=== PATIENT | male | born 1955 | race Caucasian/White ===

== ENCOUNTER 2017-04-18 11:13 | Emergency (ER) | payer SELFPAY | END 2017-04-18 13:08 | disposition home or self-care (01) | LOC: ERS 11:13 | DX: K04.7 Periapical abscess without sinus (principal); J44.9 Chronic obstructive pulmonary disease, unspecified; I25.10 Atherosclerotic heart disease of native coronary artery without angina pectoris; E11.9 Type 2 diabetes mellitus without complications; I10 Essential (primary) hypertension; M19.90 Unspecified osteoarthritis, unspecified site; Z87.891 Personal history of nicotine dependence; Z79.899 Other long term (current) drug therapy; Z79.82 Long term (current) use of aspirin; Z79.84 Long term (current) use of oral hypoglycemic drugs | CPT/HCPCS: 99283 ==

== ENCOUNTER 2017-04-19 11:19 | Observation (INO) | payer SELFPAY ==
--- NOTE | 2017-04-19 12:07 | RAD ---
PORTABLE AP CHEST: Date: 04/19/17 HISTORY: Chest pain. COMPARISON: 01/02/17. FINDINGS: Cardiac silhouette and pulmonary vasculature are within normal limits. Lungs remain clear. There has been no interval change when compared to the prior exam. IMPRESSION: No acute cardiopulmonary process. POS: [facility]
[2017-04-19 12:24] LABS: #Basophils 0.1 thou/uL (0.0-0.2); #Eosinphils 0.1 thou/uL (0.0-0.7); #Lymphocytes 2.4 thou/uL (1.20-3.40); #Monocytes 0.8 thou/uL (0.11-0.59); #Neutrophils 5.8 thou/uL (1.40-6.50); %Basophils 0.9 % (0.0-1.0); %Eosinophils 0.7 % (0.0-10.0); %Lymphocytes 26.5 % (21.0-51.0); %Monocytes 8.2 % (0.0-10.0); Hematocrit 42.9 % (42.0-52.0); Mean Platelet Volume 8.7 fL (7.4-10.4); Red Blood Cell (RBC) Count 4.61 mill/uL (4.70-6.10); White Blood Cell (WBC) Count 9.1 thou/uL (4.8-10.8)
[2017-04-19 12:49] LABS: ALT (SGPT) 28 U/L (8-55); AST (SGOT) 16 U/L (5-34); Alkaline Phosphatase 60 U/L (40-150); Anion Gap 14 mmol/L (10-20); BUN (Urea Nitrogen) 26 mg/dL (8.4-25.7); Bilirubin, Total 0.7 mg/dL (0.2-1.2); CK (CPK) 73 U/L (30-200); Calc. Creatinine Clearance 0 mL/min (70-130); Carbon Dioxide 24 mmol/L (22-29); Chloride 103 mmol/L (98-107); Estimated GFR-MDRD 56; Lipase 59 U/L (8-78); Protein, Total 6.8 g/dL (6.0-8.3)
[2017-04-19 12:52] LABS: Troponin I Less than 0.010 ng/mL (< 0.028)
[2017-04-19] MEDS ORDERED: Ibuprofen 800 MG TAB ONE (14:57)
[2017-04-19] MEDS ORDERED: AMOXicillin 250 MG CAP ONE (14:57)
[2017-04-19] MEDS ORDERED: hydrALAZINE 20 MG/ML VIAL SLOW IVP PRN (15:47)
[2017-04-19] MEDS ORDERED: Bisacodyl 5 MG TAB PO PRN ×2 (15:47)
[2017-04-19] MEDS ORDERED: Nitroglycerin 0.4 MG TAB (25 Tab Bottle) SL PRN (15:47)
[2017-04-19] MEDS ORDERED: Loratadine 10 MG TAB PO PRN (15:47)
[2017-04-19] MEDS ORDERED: Benzonatate 100 MG CAP PO PRN (15:47)
[2017-04-19] MEDS ORDERED: Ondansetron HCl/PF 4 MG/2 ML Vial IVP PRN (15:47)
[2017-04-19] MEDS ORDERED: Mag-Al 1200 mg/1200 mg/30 ML UDCUP PO PRN (15:47)
[2017-04-19] MEDS ORDERED: Diabetic Tussin 200 MG/10 ML UDCUP PO PRN (15:47)
[2017-04-19] MEDS ORDERED: Calcium Carbonate 500 MG ChewTAB PO PRN (15:47)
[2017-04-19] MEDS ORDERED: Lorazepam 1 MG TAB PO PRN (15:47)
[2017-04-19] MEDS ORDERED: cloNIDine 0.1 MG TAB PO PRN (15:47)
[2017-04-19] MEDS ORDERED: Senokot 8.6 MG TAB PO PRN ×2 (15:47)
[2017-04-19 15:48] LABS: Troponin I Less than 0.010 ng/mL (< 0.028)
[2017-04-19] MEDS ORDERED: Dextrose 50% Abboject 50 ML SYRINGE SLOW IVP PRN (15:50)
[2017-04-19] MEDS ORDERED: HumaLOG 300 UNITS/3 ML VIAL SC PRN ×2 (15:50)
[2017-04-19] MEDS ORDERED: Dextrose 5% in Water 1,000 ML IV PRN (15:50)
[2017-04-19] MEDS ORDERED: predniSONE 20 MG TAB PO SCH (16:00)
[2017-04-19 16:36] VITALS: BMI 38.3
[2017-04-19] MEDS ORDERED: ISOVUE-370 76%-LOCM 1 ML ONE (17:22)
[2017-04-19] MEDS: Acetaminophen 325 MG TAB PO PRN (17:38)
[2017-04-19 19:09] LABS: Troponin I Less than 0.010 ng/mL (< 0.028)
--- NOTE | 2017-04-19 20:10 | CT ---
CTA CHEST: History: Sudden onset dyspnea. Technique: Contrast enhanced CT of the chest. 2D and 3D reconstruct images performed on an [employer] 3D work station. FINDINGS: Coronary artery calcification is seen. Lung parenchyma is unremarkable. No evidence of mediastinal hi lar or axillary lymphadenopathy is seen. No evidence of filling defects seen in the pulmonary arteries. IMPRESSION: No evidence of pulmonary emboli seen. POS: [facility]
[2017-04-19] MEDS ORDERED: Terazosin HCl 1 MG CAP PO SCH (21:00)
--- NOTE | 2017-04-19 22:47 | HP ---
DATE OF ADMISSION: 04/19/2017 CHIEF COMPLAINT: Sudden onset of shortness of breath. PRIMARY CARE PHYSICIAN: Dr. Lowry at [facility]. HISTORY OF PRESENTING ILLNESS: Mr. Blum is a very pleasant 62-year-old male with past medical his tory of small vessel coronary artery disease, diabetes, nonalcoholic fatty liver, hypertension, dysli pidemia, and possible COPD who presented to the ER with the above-mentioned complaint. History is ma inly obtained by the patient himself and supplemented by his son present in the room. Electronic [facility] records have been reviewed. The patient was last admitted to our facility in 02/2017 for chest pain and underwent a cardiac stres s test, which was somewhat abnormal with apical scar and low EF at 40%. For this, Cardiology was con sulted and he underwent a cardiac catheterization. The catheterization showed small vessel disease a nd medical management was advised. Since then, the patient has seen Dr. Alvarado in the clinic on and Imdur was added at this time. Mr. Blum reports symptoms of malaise and easy tiredness. The symptoms started about a week ago wh en he made an overnight trip to [place] after having driven all night long. He slept for 3 days, bu t since he took the trip he has not been the same. He has persistent on and off shortness of breath, but more so the weakness. He was complaining of some jaw pain and swelling, and sought care in the emergency room yesterday and was diagnosed as having a dental abscess. He was prescribed amoxicillin and was referred to a dentist. He was at the dentist's office this morning when he had sudden onset of shortness of breath. EMS was called and he received nitroglycerin. He describes his symptoms as tightness of the chest and the feeling that he was not getting enough air. Reportedly, his oxygen s aturations were within normal limits. Shortly after receiving nitroglycerin, his blood pressure did drop in the systolic in the 70s. He was brought into the emergency room and upon presentation, his b lood pressure was 93/61. In the emergency room, he underwent further workup. His cardiac enzymes were unremarkable x2. His B [employer] COMM[employer]ICATION[employer] SPECIALIST was normal. CBC was unremarkable. His D-dimer was less than 0.27. He received a liter of fluids for low blood pressure and was stabilized. Chest x-ray was unremarkable. A 12-lead EKG also was ne gative for any acute changes. He is now being admitted for further evaluation and care. At this time, he has improvement in his symptoms. He has received amoxicillin and Motrin in the [facility] room, which he was scheduled for. He reports extensive compliance with his medications. His family is very involved in his care and th ey make sure that he is taking his medications. He has quit smoking 1-1/2 years ago, and is not smok ing at this time. However, he did smoke 1 cigarette a few days ago. 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 He denies any other recent illnesses. No sick contacts. He did notice some increased leg swelling about a week ago around his travel time which has resolved. Otherwise, he denies any chest pain, orthopnea, or PND. PAST MEDICAL HISTORY: 1. Small vessel coronary artery disease. 2. Diabetes mellitus 2. None insulin-dependent. 3. Hypertension. 4. Dyslipidemia. 5. BPH. 6. Nonalcoholic steatohepatitis. 7. Possible COPD. 8. Possible sleep apnea. PAST SURGICAL HISTORY: 1. Cardiac catheterization in 12/2016. 2. Cardiac stenting 3 years ago. 3. Cyst removal. 4. Right knee surgery. ALLERGIES: MORPHINE. SOCIAL HISTORY: He is a former smoker. He quit about 1-1/2 years ago. No history of drug or alcoho l abuse. 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 FAMILY HISTORY: Significant for coronary artery disease and diabetes. CURRENT MEDICATIONS: Listed in the ER record as follows ramipril 5 mg daily, metformin 850 mg 1-1/2 tablet b.i.d., atorvastatin 40 mg at bedtime, glimepiride 4 mg daily, aspirin 81 mg daily, Actos 30 m g daily, tamsulosin 0.4 mg daily, Breo Ellipta as needed, amoxicillin 500 mg t.i.d., and Motrin 600 q .6 hours p.r.n. REVIEW OF SYSTEMS: The following complete review of systems was negative, unless otherwise mentioned in the HPI or below: Constitutional: Weight loss or gain, ability to conduct usual activities. Sk in: Rash, itching. Eyes: Double vision, pain. ENT/Mouth: Nose bleeding, neck stiffness, pain, te nderness. Cardiovascular: Palpitations, dyspnea on exertion, orthopnea. Respiratory: Shortness of breath, wheezing, cough, hemoptysis, fever or night sweats. Gastrointestinal: Poor appetite, abdom inal pain, heartburn, nausea, vomiting, constipation, or diarrhea. Genitourinary: Urgency, frequenc y, dysuria, nocturia. Musculoskeletal: Pain, swelling. Neurologic/Psychiatric: Anxiety, depressio n. Allergy/Immunologic: Skin rash, bleeding tendency. LABORATORY AND DIAGNOSTIC DATA: His CBC is unremarkable. D-dimer less than 0.27. Serum chemistries show BUN 26, creatinine 1.31 with estimated GFR of 56, blood sugar is 198. CK-MB and troponin shelley l. BNP less than 10. Lipase 59. Chest x-ray by my review has no evidence to suggest any pleural ef fusion edema or infiltrate. A 12-lead EKG shows normal sinus rhythm at 84 beats per minute without a ny acute ST or T-wave changes. PHYSICAL EXAMINATION: VITAL SIGNS: Upon presentation include blood pressure 93/61, pulse of 80, respirations 20, saturatin g 94% on room air, temperature 98. GENERAL: No acute distress, awake, alert, oriented x3. He is wincing in pain because he has chronic rotator cuff injury of right shoulder, but he is otherwise awake, alert, oriented x3. HEENT: Mucous membrane is moist and pink. No oropharyngeal exudate or erythema. Head is normocepha lic, atraumatic. Pupils are equal, reactive to light, and accommodation. NECK: Supple without any lymphadenopathy, JVD, or bruit. CHEST: Clear to auscultation without any wheezing, rales, or rhonchi. Rate and rhythm is regular wi thout any murmur, rubs, or gallops. ABDOMEN: Obese, soft, nontender, nondistended with positive bowel sounds. EXTREMITIES: Free of any cyanosis, clubbing, or edema. NEUROLOGIC: Nonfocal. SKIN: Free of any rashes or bruises. Feels warm and dry to touch. PSYCHIATRIC: Normal affect. IMPRESSION AND PLAN: 1. Sudden onset of dyspnea. Cardiac causes of his symptoms are less likely. The patient does not a ppear to be having any chest discomfort. His cardiac enzymes are within normal limits. His BNP is n ormal, making CHF unlikely with a normal chest x-ray. Also, infection or bronchitis not likely given normal chest x-ray. I think most of his symptoms are secondary to chronic obstructive pulmonary dis ease which was diagnosed about 6 months ago for this patient. He did improve with nebulizers receive d by the EMS. At this time, I will continue the nebulizers and add oral steroids. Continue amoxicil jorge that was given for his dental abscess. Given his history of cardiomyopathy and recent dental abs cess, I will, however, check an echocardiogram to rule out any valvular infection, though it is less likely given history of healthy red cliff heart valves. The patient clinically does not seem to have a severe infection like endocarditis. Also given the fact that his symptoms started after 12-hour long road trip, I will go ahead and order a CT angio to rule out pulmonary embolism. Once again, the cli nical likelihood is low, but it sure does need to be ruled out. He will be admitted to telemetry [facility] and we will continue to trend serial cardiac enzymes and further management will depend upon his cl inical course. We will restart his home medications. 2. History of coronary artery disease. He seems to be stable and compliant with his medications. H e will continue to follow up with Cardiology as an outpatient. We will restart his home medications. He was seemingly discharged on aspirin and Plavix the last time I was here, but I am not sure if he is still taking those or not. At this time, we will resume his atorvastatin, aspirin, and ramipril. 3. Diabetes mellitus. Given his history of possible congestive heart failure, I would advise agains t using Actos. At this time, he will be treated with insulin sliding scale and we will hold Actos an d metformin to avoid hypoglycemia and acidosis. Frequent Accu-Cheks have been ordered. 4. BPH. Continue with tamsulosin. 5. Possible chronic obstructive pulmonary disease, continue with Breo Ellipta otherwise as #1. 6. Possible obstructive sleep apnea. 7. Code status: FULL CODE. Discussed with the patient. DISPOSITION: Mr. Blum is being admitted for further workup for acute onset of dyspnea, which like ly is pulmonary causes rather than cardiac. Further management will depend upon his clinical course.
[2017-04-20 06:24] LABS: Anion Gap 12 mmol/L (10-20); BUN (Urea Nitrogen) 22 mg/dL (8.4-25.7); Calc. Creatinine Clearance 163 mL/min (70-130); Carbon Dioxide 24 mmol/L (22-29); Chloride 104 mmol/L (98-107); Estimated GFR-MDRD 86
[2017-04-20 06:33] LABS: #Lymphocytes 1.5 thou/uL (1.20-3.40); #Monocytes 0.5 thou/uL (0.11-0.59); #Neutrophils 5.2 thou/uL (1.40-6.50); %Basophils 0.4 % (0.0-1.0); %Eosinophils 0.3 % (0.0-10.0); %Lymphocytes 20.8 % (21.0-51.0); %Monocytes 6.4 % (0.0-10.0); Hematocrit 39.5 % (42.0-52.0); Mean Platelet Volume 8.9 fL (7.4-10.4); Red Blood Cell (RBC) Count 4.26 mill/uL (4.70-6.10); White Blood Cell (WBC) Count 7.3 thou/uL (4.8-10.8)
[2017-04-20] MEDS ORDERED: Glimepiride 4 MG TAB PO SCH (08:00)
[2017-04-20] MEDS ORDERED: predniSONE 20 MG TAB PO SCH (08:00)
[2017-04-20] MEDS ORDERED: Aspirin 81 mg Enteric Coated Tablet PO SCH (09:00)
[2017-04-20] MEDS ORDERED: Fish Oil 1,000 MG CAP PO SCH (09:00)
[2017-04-20] MEDS ORDERED: Enoxaparin Sodium 40 MG/0.4 ML SYRINGE SC SCH (09:00)
[2017-04-20] MEDS ORDERED: Clopidogrel Bisulfate 75 MG TAB PO SCH (09:00)
[2017-04-20] MEDS: AMOXicillin 250 MG CAP PO SCH ×2 (09:49→15:22)
[2017-04-20] MEDS: Acetaminophen 325 MG TAB PO PRN ×2 (11:35→15:22)
--- NOTE | 2017-04-20 13:27 | EKG ---
Test Reason : Blood Pressure : / mmHG Vent. Rate : 084 BPM Atrial Rate : 084 BPM P-R Int : 158 ms QRS Dur : 086 ms QT Int : 362 ms P-R-T Axes : 030 006 072 degrees QTc Int : 427 ms Normal sinus rhythm with sinus arrhythmia Normal ECG Confirmed by DOROTHY ESCOBEDO ([id number]), editor & co founder HAL MCKEON ([id number]) on 04/20/2017 1:27:13 PM Referred By: Confirmed By:DOROTHY ESCOBEDO
[2017-04-20 17:19] VITALS: BP 124/66; TEMP 98.3
--- NOTE | 2017-04-21 01:30 | DIS ---
DATE OF ADMISSION: 04/19/2017 DATE OF DISCHARGE: 04/20/2017 CONDITION AT THE TIME OF DISCHARGE: Stable and improved. DISCHARGE DIAGNOSES: 1. Dyspnea secondary to obstructive sleep apnea. 2. Chronic obstructive pulmonary disease. 3. Small vessel coronary artery disease. 4. Diabetes mellitus type 2. 5. Hypertension. 6. Dyslipidemia. 7. Benign prostatic hypertrophy. 8. Nonalcoholic steatohepatitis. 9. Morbid obesity. DISCHARGE MEDICATIONS: Remain the same as admission medication. Please see admission history and ph ysical dictated by myself for further details. New medications as follows Medrol Dosepak and albuter ol inhaler as needed. PRIMARY CARE PHYSICIAN: Dr. Lowry at [facility]. PROCEDURES DONE IN THE HOSPITAL: Include CT angio of the thorax, which is negative for any pulmonary embolism or acute cardiopulmonary abnormality. Transthoracic echocardiogram, which was EF of 50%-55%, normal valves, normal ventricular size. HISTORY OF PRESENTING ILLNESS: Mr. Blum is a 62-year-old male with history of small vessel kennedy ry artery disease not amenable to surgical management as well as diabetes, COPD, and possible sleep a pnea, who presented to the emergency room with acute onset of dyspnea in the dentist's office. He wa s admitted for further workup. Please see admission history and physical for further details. He wa s hemodynamically stable. HOSPITAL COURSE: Serial cardiac enzymes were trended and they were unremarkable. He was restarted o n his home medications. An echo was done, which was unremarkable. CT angio was done, which was nega tive for PE. The patient did have symptoms of sleep apnea while in the hospital and I think most of his symptoms are due to obstructive sleep apnea. Unfortunately, he is unfunded and is not able to af parker an outpatient sleep study. media marketing manager discussed the cost of AutoPap with the patient, which w ould be a whole lot cheaper than the sleep study. At this time, he is encouraged to discuss this fur ther with his primary care physician. At this time, he is hemodynamically stable and will be discharged back home. His symptoms are second suraj to be obstructive sleep apnea. He was seen and examined prior to discharge. PHYSICAL EXAMINATION: VITAL SIGNS: Temperature 98.6, pulse of 94, respirations 16, saturating 93% on room air, and blood p ressure 122/74. GENERAL: He is in no acute distress, awake, oriented x3. CHEST: Clear to auscultation without any wheezing, rales or rhonchi. HEART: Rate and rhythm is regular without any murmur, rubs or gallops. ABDOMEN: Obese. LABORATORY EXAMINATION: Troponin less than 0.010 x3. D-dimer is less than 0.27.
== END 2017-04-20 18:12 | disposition home or self-care (01) ==
LOC: ERS 11:19 → 2SW 14:37
PROVIDERS: ADMIT Internal Medicine; ATTEND Internal Medicine
DX: G47.33 Obstructive sleep apnea (adult) (pediatric) (principal); J44.9 Chronic obstructive pulmonary disease, unspecified; I25.10 Atherosclerotic heart disease of native coronary artery without angina pectoris; E11.9 Type 2 diabetes mellitus without complications; I10 Essential (primary) hypertension; E78.5 Hyperlipidemia, unspecified; N40.0 Benign prostatic hyperplasia without lower urinary tract symptoms; K75.81 Nonalcoholic steatohepatitis (NASH); E66.01 Morbid (severe) obesity due to excess calories; Z68.38 Body mass index [BMI] 38.0-38.9, adult; Z79.84 Long term (current) use of oral hypoglycemic drugs; Z79.82 Long term (current) use of aspirin; Z79.02 Long term (current) use of antithrombotics/antiplatelets; Z79.899 Other long term (current) drug therapy; Z88.5 Allergy status to narcotic agent; Z98.890 Other specified postprocedural states; Z87.891 Personal history of nicotine dependence
CPT/HCPCS: 36415; 36416; 71010; 71275; 80048; 80053; 82550; 82553; 83690; 83880; 84484; 85025; 85379; 90471; 90732; 93005; 93306; 94640; 96360; 96372; G0009; G0378; J1650; J7506; J7620

== ENCOUNTER 2017-05-31 14:34 | Observation (INO) | payer OTHER, SELFPAY ==
[2017-05-31 15:08] LABS: #Basophils 0.1 thou/uL (0.0-0.2); #Eosinphils 0.1 thou/uL (0.0-0.7); #Lymphocytes 2.9 thou/uL (1.20-3.40); #Monocytes 0.6 thou/uL (0.11-0.59); #Neutrophils 4.9 thou/uL (1.40-6.50); %Eosinophils 1.5 % (0.0-10.0); %Lymphocytes 33.9 % (21.0-51.0); %Monocytes 6.9 % (0.0-10.0); %Neutrophils 56.7 % (42.0-75.0); Hemoglobin 13.6 g/dL (14.0-18.0); Mean Corpuscular HGB CONC 34.1 g/dL (32.0-36.0); Mean Corpuscular Hemoglobin 31.2 pg (27.0-31.0); Mean Corpuscular Volume 91.6 fl (80.0-94.0); Mean Platelet Volume 9.2 fL (7.4-10.4); Platelet Count 143 thou/uL (130-400); RBC Distribution Width 12.2 % (11.5-14.5); Red Blood Cell (RBC) Count 4.34 mill/uL (4.70-6.10); White Blood Cell (WBC) Count 8.6 thou/uL (4.8-10.8)
--- NOTE | 2017-05-31 15:27 | RAD ---
EXAM: ONE VIEW CHEST: COMPARISON: 04/19/17. HISTORY: Chest pain. FINDINGS: There is slight leftward rotation of the patient. Cardiac silhouette is unchanged. Lungs and pleura l spaces are clear. No pneumothorax or osseous abnormalities. Chronic changes in the left clavicle. IMPRESSION: No acute cardiopulmonary process. POS: [facility]
[2017-05-31 15:32] LABS: ALT (SGPT) 31 U/L (8-55); AST (SGOT) 17 U/L (5-34); Alkaline Phosphatase 59 U/L (40-150); Anion Gap 14 mmol/L (10-20); BUN (Urea Nitrogen) 20 mg/dL (8.4-25.7); Bilirubin, Total 0.3 mg/dL (0.2-1.2); CK (CPK) 78 U/L (30-200); Calc. Creatinine Clearance 0 mL/min (70-130); Carbon Dioxide 22 mmol/L (22-29); Chloride 101 mmol/L (98-107); Estimated GFR-MDRD 77; Globulin 2.8 g/dL (2.4-3.5); Glucose 292 mg/dL (70-105); Lipase 38 U/L (8-78); Potassium 4.2 mmol/L (3.5-5.1); Protein, Total 6.8 g/dL (6.0-8.3); Sodium 133 mmol/L (136-145)
[2017-05-31 15:35] LABS: CKMB 1.4 ng/mL (0-6.6); Troponin I Less than 0.010 ng/mL (< 0.028)
[2017-05-31] MEDS ORDERED: ISOVUE-370 76%-LOCM 1 ML ONE (16:25)
--- NOTE | 2017-05-31 17:03 | CT ---
CT ANGIOGRAM OF THE THORACIC AORTA CT ANGIOGRAM OF THE ABDOMINAL AORTA: Date: 05/31/17 HISTORY: Chest pain. Mid sternal pain radiating to the back. Evaluate for dissection. COMPARISON: 04/30/17. TECHNIQUE: CT angiogram of the thoracic and abdominal aorta performed in the axial plane. Sagittal and coronal t hree-dimensional reformatted images are submitted for interpretation. FINDINGS: CHEST CT: No mediastinal mass, lymphadenopathy, or hematoma. Heart size is within normal limits. No pericardial effusion. The central pulmonary arteries are adequately opacified with contrast. No filling defect. Coronary artery calcifications are identified. No masses or consolidation in the lung parenchyma. Calcified granuloma in the left upper lobe is note d. No pleural effusion or pneumothorax. Trachea and central bronchi are patent. ABDOMEN CT: There is appropriate arterial phase enhancement of the solid organs. No gastrohepatic, retrocrural, o r periportal lymphadenopathy. Nonspecific periportal lymph node. Gallbladder is unremarkable. No mesenteric mass, lymphadenopathy, free air, or free fluid. Ventral abdominal wall hernia containing mesenteric fat is noted. No bowel herniation. There is scarring in the left kidney. Nonobstructing 6.0 mm calcification in the left renal pelvis. N o evidence of obstructive uropathy. Symmetric enhancement of the kidneys. Limited evaluation of the alimentary canal. No evidence of bowel obstruction. Fecal material in a non distended, nondilated colon. There is evidence of diverticulosis, without evidence of diverticulitis. CT ANGIOGRAM: There is appropriate enhancement and luminal diameter of the ascending thoracic aorta, aortic arch, d escending thoracic aorta, abdominal aorta, and aortic bifurcation. There is appropriate enhancement a nd luminal diameter of the celiac artery, superior mesenteric artery, and bilateral renal artery osti a. Note, there are four left renal arteries and a solitary right renal artery. Aortic bifurcation. Vi sualized iliac arteries are unremarkable. IMPRESSION: No evidence of aneurysm or dissection. Additional findings as above. POS: [facility]
[2017-05-31 17:48] LABS: Bilirubin Negative (Negative); Blood, Urine Negative (Negative); Clarity CLEAR (Clear); Glucose, Urine (Dipstick) >=1000 mg/dL (Negative); Leukocyte Negative (Negative); Nitrite Negative (Negative); Protein, Urine (Dipstick) Negative (Neg-Trace); Specific Gravity, Urine 1.043 (1.002-1.036)
--- NOTE | 2017-05-31 18:25 | PDOC.EVN ---
Event Note - Event Note Event Note: H&P Dictated 1. Chest pain, substernal, pressure, lasted one hr, 10/10, denies radiation, denies sweating, denies nausea or vomiting ekg no st changes 2. HTN 3. HPL 4. H/O CHF plan: see orders
[2017-05-31] MEDS ORDERED: PROVENTIL INHALER 6.7 G (200 INHALATIONS) INH PRN (19:03)
[2017-05-31] MEDS ORDERED: HumaLOG 300 UNITS/3 ML VIAL SC PRN ×2 (19:05)
[2017-05-31] MEDS ORDERED: Dextrose 5% in Water 1,000 ML IV PRN (19:05)
[2017-05-31] MEDS ORDERED: Dextrose 50% Abboject 50 ML SYRINGE SLOW IVP PRN (19:05)
[2017-05-31 20:01] LABS: Troponin I Less than 0.010 ng/mL (< 0.028)
--- NOTE | 2017-05-31 20:34 | HP ---
DATE OF ADMISSION: 05/31/2017 CHIEF COMPLAINT: Chest pain. HISTORY OF PRESENT ILLNESS: The patient is a 62-year-old male with past medical history of hypertens ion, diabetes type 2, CHF, hyperlipidemia and fatty liver, now came to the ER complaining of chest pa in. Chest pain started all of a sudden, substernal, pressure kind of pain 10/10, lasted for one hour and resolved on its own. Denies any nausea, denies any vomiting, denies any sweating, denies any tr ouble breathing, denies any fever, denies any chills, denies any cough, denies sputum production, den ies similar episodes in the past. PAST MEDICAL HISTORY: As per HPI. PAST SURGICAL HISTORY: Pilonidal cyst removal. SOCIAL HISTORY: Positive for smoking. Denies alcohol, denies any drugs. FAMILY HISTORY: Positive for heart problems. REVIEW OF SYSTEMS: Constitutional: Denies any fever, denies any chills. Eyes: Vision problems. E ars: Denies any hearing loss. Neck: Denies any neck pain. Cardiovascular System: Positive for ch est pain. Respiratory System: Denies any cough or sputum. Gastrointestinal: Denies any nausea, vo miting. Musculoskeletal: Denies any joint deformities. Integumentary: Denies any rash. Cranial Nervous System: Denies syncope. All other review of syste ms are reviewed and are negative. PHYSICAL EXAMINATION: CONSTITUTIONAL/VITAL SIGNS: At the time of H&P performed, blood pressure is 110/70, afebrile and res piration rate 18. GENERAL: The patient appears comfortable. HEENT: Pupils are equal, round and reactive. Anterior nares patent. Nose normal. Ears normal. Te eth intact. Tongue is moist. NECK: Supple. No JVD. CARDIOVASCULAR SYSTEM: S1 and S2 present. Regular rate and rhythm. No murmurs, no rubs, no gallops . RESPIRATORY SYSTEM: No wheezing, no rhonchi. Breath sounds bilaterally. GASTROINTESTINAL: Abdomen is soft and nontender. No guarding, no organomegaly, no masses felt. PSYCHIATRIC: Mood is appropriate. INTEGUMENTARY: No rashes seen. GENITOURINARY: No suprapubic tenderness. MUSCULOSKELETAL: No edema. LABORATORY DATA: At the time of H&P performed, white count 8.6, hemoglobin 13.6 and platelet count i s 143. D-dimer 0.285, sodium 130, potassium 4.2, chloride 101, CO2 of 22, BUN of 20, creatinine 0.9, glucose is 292, calcium 10, total bilirubin 0.3, CK-MB 1.4 and troponin is less than 0.010. IMAGING DATA: EKG, no acute ST changes. ASSESSMENT AND PLAN: The patient is a 62-year-old male. 1. Chest pain, need to rule out cardiac etiology. Plan to check cardiac enzymes. Plan to monitor t he patient closely. 2. Hypertension. Monitor blood pressures. Continue home blood pressure medications. 3. Diabetes type 2. Monitor blood sugars. We will do insulin sliding scale. 4. Hyperlipidemia. Continue statin. 5. History of congestive heart failure, stable. Monitor strict I's and O's. The case was discussed in detail with the patient.
[2017-05-31] MEDS ORDERED: Acetaminophen 500 MG TAB ONE (20:35)
[2017-05-31] MEDS ORDERED: Acetaminophen 325 MG/10.15 ML UDCUP ONE (20:35)
[2017-05-31 22:14] VITALS: BMI 39.6
[2017-05-31 22:17] LABS: Troponin I Less than 0.010 ng/mL (< 0.028)
[2017-05-31] MEDS ORDERED: metFORMIN 500 MG TAB PO SCH (22:45)
[2017-05-31] MEDS ORDERED: Terazosin HCl 1 MG CAP PO SCH (22:45)
[2017-05-31] MEDS: Nitroglycerin 2% Ointment 1 INCH/1 GM Packet TOP SCH (23:04)
[2017-05-31] MEDS: Carvedilol 3.125 MG TAB PO SCH (23:04)
[2017-06-01] MEDS ORDERED: Fluticasone Propionate Nasal Spray 16 gm Bottle NASAL SCH (03:15)
[2017-06-01] MEDS: Nitroglycerin 2% Ointment 1 INCH/1 GM Packet TOP SCH ×3 (05:27→23:13)
[2017-06-01] MEDS ORDERED: Aspirin 325 MG TAB PO SCH (08:00)
[2017-06-01] MEDS: Clopidogrel Bisulfate 75 MG TAB PO SCH (08:22)
[2017-06-01] MEDS: metFORMIN 500 MG TAB PO SCH ×2 (08:23→16:55)
[2017-06-01] MEDS: Carvedilol 3.125 MG TAB PO SCH ×2 (08:23→20:31)
[2017-06-01] MEDS ORDERED: Glimepiride 4 MG TAB PO SCH (11:30)
[2017-06-01] MEDS ORDERED: Enoxaparin Sodium 120 MG/0.8 ML SYRINGE SC ONE (12:20)
[2017-06-01] MEDS ORDERED: Enoxaparin Sodium 30 MG/0.3 ML SYRINGE SC SCH (12:45)
[2017-06-01] MEDS ORDERED: Enoxaparin Sodium 100 MG/ML SYRINGE SC SCH (12:45)
[2017-06-01] MEDS ORDERED: Ramipril 5 MG CAP PO SCH (13:00)
[2017-06-01] MEDS ORDERED: Atorvastatin Calcium 40 MG TAB PO SCH ×2 (13:00→21:00)
--- NOTE | 2017-06-01 13:42 | CON ---
DATE OF CONSULTATION: 06/01/2017 HISTORY OF PRESENT: The patient is a pleasant 62-year-old gentleman who presents with the acute onset of recurrent chest discomfort. The patient has a long history of coronary artery disease. He has previously had PTCA and stent placement. He was seen in December of this year and underwent a cardiac catheterization. The patient was found to have normal left ventricular systolic function with estimated ejection fraction of 50% to 55%. The left anterior descending artery had a 70% stenosis in the second diagonal branch, mid LAD had a 30%, the distal had two sequential 30% stenosis. Left circumflex artery had 40% proximal stenosis. The second obtuse marginal had a 70% stenosis. The right coronary artery had a 40% stenosis. The patient was felt to have moderate CAD and placed on medical therapy. The patient states he has had occasional angina. On the day of admission, he had severe midsternal chest discomfort that lasted approximately one hour. The patient denies having any present chest discomfort. PAST MEDICAL HISTORY: 1. Coronary artery disease. 2. Hypertension. 3. Dyslipidemia. 4. Obesity. PAST SURGICAL HISTORY: Pilonidal cyst removed. SOCIAL HISTORY: He has a long history of tobacco abuse. FAMILY HISTORY: Positive family history of heart disease. MEDICATIONS ON ADMISSION: He takes metformin 1000 b.i.d., terazosin 2 daily, Altace 5 daily, Actos 30 daily, lisinopril 10 daily, Imdur 30 q.a.m., Amaryl 4 daily, Coreg 3.125 b.i.d., Plavix 75 daily, and aspirin 81 daily. REVIEW OF SYSTEMS: Ten-point system otherwise unremarkable. PHYSICAL EXAMINATION: GENERAL: Obese gentleman with a blood pressure of 131/68. NECK: No jugular venous distention. LUNGS: Coarse breath sounds bilateral. HEART: Regular rate and rhythm, normal S1, S2, no murmurs. ABDOMEN: Distended. EXTREMITIES: Showed trace edema. SKIN: Warm and dry. NEUROLOGIC: Nonfocal. VASCULAR: Radial pulses 2+. LABORATORY RESULTS: Sodium 133, potassium 4.2, chloride 101, bicarbonate 22, BUN 20, creatinine 0.99, glucose 292, troponin less than 0.01. BNP 10. White blood cell count 8.6, hemoglobin 13.6, hematocrit 39.8, platelets were 143. EKG revealed normal sinus rhythm, normal ECG. IMPRESSION: 1. Unstable angina. 2. Severe diffuse coronary artery disease. 3. Hypertension. 4. Diabetes mellitus. 5. Dyslipidemia. 6. Morbid obesity. This gentleman presents with chest pain suggestive of angina. We would recommend the patient be treated with subcutaneous Lovenox. The patient states he has been compliant with his medications. He should be on lipid lowering medication. We will add high dose Lipitor or Crestor. The patient needs to have sublingual nitroglycerin. We will follow this patient with you through his hospitalization. JODY
--- NOTE | 2017-06-01 14:22 | PDOC.PN ---
- Subjective Encounter Start Date: 06/01/17 Encounter Start Time: 08:00 Patient is seen today, No chest pain now, he wants to go Home, Cardiology suggested to monitor him for 1-2 days due to high risk unstable Angina. - Objective MAR Reviewed: Yes Vital Signs & Weight: Vital Signs (12 hours) Temp Pulse Resp BP BP Pulse Ox 06/01/17 11:11 98.1 F 72 20 131/68 95 06/01/17 08:00 98.2 F 74 20 06/01/17 07:52 98.2 F 74 20 123/71 96 06/01/17 03:05 97.4 F L 72 20 109/62 98 Weight Weight 300 lb 1 oz I&O: 05/31/17 06/01/17 06/02/17 06:59 06:59 06:59 Intake Total 680 Output Total 535 Balance 145 Result Diagrams: 05/31/17 15:00 05/31/17 15:00 Additional Labs: Accuchecks 06/01/17 06/01/17 05/31/17 11:13 05:46 23:05 POC Glucose 295 H 192 H 200 H Radiology Reviewed by me: Yes Phys Exam - Physical Examination HEENT: PERRLA, moist MMs Neck: no nodes, no JVD Respiratory: no wheezing, no rales Cardiovascular: RRR, no significant murmur Gastrointestinal: soft, non-tender Musculoskeletal: no edema, pulses present Neurological: non-focal, normal sensation Dx/Plan (1) Atypical chest pain Code(s): R07.89 - OTHER CHEST PAIN Status: Acute Comment: Will continue to Monitor. Follow cardiology Dr. Majano recomemdations No other Concern snoted. (2) Type 2 diabetes mellitus Status: Acute Comment: Will cotninue on Metformin and Amaryl. Will do SSI and Keep BG 140-180 (3) CAD (coronary artery disease) Code(s): I25.10 - ATHSCL HEART DISEASE OF [place] CORONARY ARTERY W/O ANG PCTRS Status: Chronic Comment: h/o Stents in heart. (4) H/O heart artery stent Code(s): Z95.5 - PRESENCE OF CORONARY ANGIOPLASTY IMPLANT AND GRAFT Status: Chronic (5) HLD (hyperlipidemia) Code(s): E78.5 - HYPERLIPIDEMIA, UNSPECIFIED Status: Chronic Comment: Continue on Atrovastatin. - Plan cont current plan of care, PT/OT, out of bed/ambulate, DVT proph w/lovenox, DVT proph w/SCDs Patient hada recent Nuclear Stress test normal according to pt, Will wait for Cardiology for further management. - Discharge Day Encounter end time: 08:35 Review of Systems - Review of Systems Eyes: negative: Pain, Vision Change, Conjunctivae Inflammation, Eyelid Inflammation, Redness, Other ENT: negative: Ear Pain, Ear Discharge, Nose Pain, Nose Discharge, Nose Congestion, Mouth Pain, Mouth Swelling, Throat Pain, Throat Swelling, Other Cardiovascular: chest pain Gastrointestinal: negative: Nausea, Vomiting, Abdominal Pain, Diarrhea, Constipation, Melena, Hematochezia, Other Genitourinary: negative: Dysuria, Frequency, Incontinence, Hematuria, Retention , Other Musculoskeletal: negative: Neck Pain, Shoulder Pain, Arm Pain, Back Pain, Hand Pain, Leg Pain, Foot Pain, Other Skin: negative: Rash, Lesions, Dion, Bruising, Other Neurological: negative: Weakness, Numbness, Incoordination, Change in Speech, Confusion, Seizures, Other - Medications/Allergies Allergies/Adverse Reactions: Allergies Allergy/AdvReac Type Severity Reaction Status Date / Time morphine Allergy Verified 01/02/17 04:19 Medications: Current Medications Albuterol Sulfate (Proventil Hfa) 1 puff INH Q4H PRN PRN Reason: SOB &/or Wheezing Aspirin (Aspirin Chewable) 81 mg PO QAM-WM [facility] Atorvastatin Calcium (Lipitor) 40 mg PO HS [facility] Atorvastatin Calcium (Lipitor) 40 mg PO NOW [facility] Stop: 06/01/17 15:00 Last Admin: 06/01/17 12:56 Dose: Not Given Carvedilol (Coreg) 3.125 mg PO BID [facility] Last Admin: 06/01/17 08:23 Dose: 3.125 mg Clopidogrel Bisulfate (Plavix) 75 mg PO DAILY [facility] Last Admin: 06/01/17 08:22 Dose: 75 mg Dextrose/Water (Dextrose 50%) 25 gm SLOW IVP PRN PRN PRN Reason: Hypoglycemia Enoxaparin Sodium (Lovenox) 100 mg SC 0900,2100 [facility] Enoxaparin Sodium (Lovenox) 30 mg SC 0900,2100 [facility] Enoxaparin Sodium (Lovenox) 100 mg SC NOW [facility] Stop: 06/01/17 14:45 Last Admin: 06/01/17 13:01 Dose: 100 mg Enoxaparin Sodium (Lovenox) 30 mg SC NOW [facility] Stop: 06/01/17 14:45 Last Admin: 06/01/17 13:02 Dose: 30 mg Fluticasone Propionate (Flonase Nasal [place]) 0 gm NASAL DAILY [facility] Glimepiride (Amaryl) 4 mg PO BID-[facility] Glucagon (Glucagon) 1 mg IM PRN PRN PRN Reason: Hypoglycemia Dextrose/Water (D5w) 1,000 mls @ 0 mls/hr IV .Q0M PRN; As Directed PRN Reason: Hypoglycemia Insulin Human Lispro (Humalog) 0 units SC .MODERATE SLIDING SC PRN PRN Reason: Moderate Correctional Scale Insulin Human Lispro (Humalog) 0 units SC .BEDTIME SLIDING SC PRN PRN Reason: Bedtime Correctional Scale Metformin HCl (Glucophage) 1,000 mg PO BID-[facility] Last Admin: 06/01/17 08:23 Dose: 1,000 mg Nitroglycerin (Nitro-Bid 2% Ointment) 0.5 inch TOP Q8HR [facility] Last Admin: 06/01/17 05:27 Dose: 0.5 inch Ramipril (Altace) 5 mg PO DAILY [facility] Ramipril (Altace) 5 mg PO NOW [facility] Stop: 06/01/17 15:00 Last Admin: 06/01/17 13:07 Dose: 5 mg Terazosin HCl (Hytrin) 2 mg PO [facility]
[2017-06-01] MEDS: Acetaminophen 500 MG TAB PO PRN ×2 (16:55→23:26)
[2017-06-01] MEDS: Glimepiride 4 MG TAB PO SCH (16:55)
[2017-06-01] MEDS: Enoxaparin Sodium 100 MG/ML SYRINGE SC SCH (20:32)
[2017-06-01] MEDS: Enoxaparin Sodium 30 MG/0.3 ML SYRINGE SC SCH (20:32)
[2017-06-01] MEDS ORDERED: Terazosin HCl 1 MG CAP PO SCH (21:00)
[2017-06-01] MEDS ORDERED: Enoxaparin Sodium 120 MG/0.8 ML SYRINGE SC SCH (21:00)
[2017-06-02] MEDS: Nitroglycerin 2% Ointment 1 INCH/1 GM Packet TOP SCH (05:34)
--- NOTE | 2017-06-02 07:41 | PDOC.CTH ---
Cardiology Progress Note - Subjective He is doing well. No more chest pain, tightness, pressure. No SOB. His echo was normal. - Objective Vital Signs Temp Pulse Resp BP Pulse Ox 06/02/17 04:03 98.3 F 75 18 128/76 95 06/01/17 23:07 98.2 F 83 16 126/66 98 06/01/17 20:00 99.1 F 71 16 Weight 295 lb 11.2 oz 06/01/17 06/02/17 06/03/17 06:59 06:59 06:59 Intake Total 680 2900 Output Total 535 Balance 145 2900 - Physical Examination General/Neuro: alert & oriented x3, NAD Neck: no JVD present Lungs: CTA, unlabored respirations Heart: RRR Abdomen: NT/ND Extremities: other: (no edema) - Telemetry Telemetry Rhythm: NSR - Labs Result Diagrams: 05/31/17 15:00 05/31/17 15:00 Troponin/CKMB CK-MB (CK-2) 1.4 ng/mL (0-6.6) 05/31/17 15:00 Troponin I Less than 0.010 ng/mL (< 0.028) 05/31/17 20:57 - Assessment/Plan 1. Stable chronic angina. 2. CAD 3. Tobacco use 4. HTN 5. DMT2 PLAN: - I reviewed his films and he has a severe lesion on a very small diagonal about 1.5 to 2 mm in size not a good target for revascularization. He otherwise had mild disease and diffuse disease. - Will increase his Imdur to 60mg daily, this should help his BP and hopefully his angina. - He may be discharged home, No evidence of ACS. Undetectable troponins and his pain is only with exertion. - Will follow up with him in 1 month. -Will sign off. Please call with any questions.
[2017-06-02 08:15] VITALS: BP 142/87; TEMP 98.6
[2017-06-02] MEDS ORDERED: Ramipril 5 MG CAP PO SCH (09:00)
[2017-06-02] MEDS ORDERED: Fluticasone Propionate Nasal Spray 16 gm Bottle NASAL SCH (09:00)
[2017-06-02] MEDS: Enoxaparin Sodium 30 MG/0.3 ML SYRINGE SC SCH (09:10)
[2017-06-02] MEDS: metFORMIN 500 MG TAB PO SCH (09:10)
[2017-06-02] MEDS: Clopidogrel Bisulfate 75 MG TAB PO SCH (09:10)
[2017-06-02] MEDS: Carvedilol 3.125 MG TAB PO SCH (09:10)
[2017-06-02] MEDS: Glimepiride 4 MG TAB PO SCH (09:10)
[2017-06-02] MEDS: Enoxaparin Sodium 100 MG/ML SYRINGE SC SCH (09:12)
[2017-06-02] MEDS ORDERED: Atorvastatin Calcium 40 MG TAB PO SCH (21:00)
== END 2017-06-02 10:31 | disposition home or self-care (01) ==
LOC: ERS 14:34 → 2SW 17:10
PROVIDERS: ADMIT Internal Medicine; ATTEND Internal Medicine
DX: I20.0 Unstable angina (principal); I11.0 Hypertensive heart disease with heart failure; I50.9 Heart failure, unspecified; E78.5 Hyperlipidemia, unspecified; F17.200 Nicotine dependence, unspecified, uncomplicated; E66.01 Morbid (severe) obesity due to excess calories; Z68.39 Body mass index [BMI] 39.0-39.9, adult; Z88.5 Allergy status to narcotic agent; Z79.84 Long term (current) use of oral hypoglycemic drugs; Z79.899 Other long term (current) drug therapy; Z98.890 Other specified postprocedural states
CPT/HCPCS: 36415; 36416; 71045; 71275; 80053; 81003; 82550; 82553; 83690; 83880; 84484; 85025; 85379; 93005; 93306; 94640; 96372; G0378; J1650

== ENCOUNTER 2017-06-21 14:30 | Outpatient (CLI) | payer OTHER | END 2017-06-21 14:31 | disposition home or self-care (01) | LOC: BICRAD 14:30 | PROVIDERS: ATTEND Internal Medicine | DX: R06.00 Dyspnea, unspecified (principal); I51.7 Cardiomegaly | CPT/HCPCS: 71046 ==

== ENCOUNTER 2017-06-22 17:20 | Emergency (ER) | payer OTHER ==
[2017-06-22 17:47] LABS: #Eosinphils 0.1 thou/uL (0.0-0.7); #Lymphocytes 1.7 thou/uL (1.20-3.40); #Monocytes 0.5 thou/uL (0.11-0.59); #Neutrophils 3.1 thou/uL (1.40-6.50); %Basophils 0.6 % (0.0-1.0); %Eosinophils 1.4 % (0.0-10.0); %Lymphocytes 31.6 % (21.0-51.0); %Neutrophils 57.4 % (42.0-75.0); Hemoglobin 13.3 g/dL (14.0-18.0); Mean Corpuscular HGB CONC 34.3 g/dL (32.0-36.0); Mean Corpuscular Volume 93.2 fl (80.0-94.0); Mean Platelet Volume 9.5 fL (7.4-10.4); Platelet Count 135 thou/uL (130-400); RBC Distribution Width 12.4 % (11.5-14.5); Red Blood Cell (RBC) Count 4.14 mill/uL (4.70-6.10); White Blood Cell (WBC) Count 5.4 thou/uL (4.8-10.8)
[2017-06-22 18:17] LABS: ALT (SGPT) 49 U/L (8-55); AST (SGOT) 33 U/L (5-34); Albumin 3.9 g/dL (3.5-5.0); Alkaline Phosphatase 64 U/L (40-150); Anion Gap 16 mmol/L (10-20); BUN (Urea Nitrogen) 18 mg/dL (8.4-25.7); Bilirubin, Total 0.4 mg/dL (0.2-1.2); CK (CPK) 144 U/L (30-200); CKMB 1.5 ng/mL (0-6.6); Calc. Creatinine Clearance 0 mL/min (70-130); Calcium 9.8 mg/dL (7.8-10.44); Carbon Dioxide 22 mmol/L (22-29); Chloride 103 mmol/L (98-107); Estimated GFR-MDRD 77; Globulin 3.2 g/dL (2.4-3.5); Glucose 265 mg/dL (70-105); Lipase 39 U/L (8-78); Potassium 4.6 mmol/L (3.5-5.1); Protein, Total 7.1 g/dL (6.0-8.3); Sodium 136 mmol/L (136-145); Troponin I Less than 0.010 ng/mL (< 0.028)
--- NOTE | 2017-06-22 18:20 | RAD ---
PORTABLE AP CHEST X-RAY: 06/22/17 HISTORY: Dyspnea. COMPARISON: 04/19/17. FINDINGS: The cardiac silhouette is magnified by projection, but stable from prior study. The pulmonary vascula ture is within normal limits. There are linear densities in the right lung base probably related to a telectasis. The lungs are otherwise clear. No other interval change. IMPRESSION: Overall stable chest without evidence of acute cardiopulmonary process. POS: [facility]
--- NOTE | 2017-07-17 15:57 | EKG ---
Test Reason : SOB Blood Pressure : / mmHG Vent. Rate : 122 BPM Atrial Rate : 122 BPM P-R Int : 132 ms QRS Dur : 084 ms QT Int : 316 ms P-R-T Axes : 022 016 089 degrees QTc Int : 450 ms Sinus tachycardia Otherwise normal ECG Confirmed by KAITLIN RUST, MEENA ([id number]), editor publications HAL MCKEON ([id number]) on 07/17/2017 3:56:10 PM Referred By: Confirmed By:MEENA MADRIGAL MD
== END 2017-06-22 21:17 | disposition home or self-care (01) ==
LOC: ERS 17:20
DX: J44.1 Chronic obstructive pulmonary disease with (acute) exacerbation (principal); I25.10 Atherosclerotic heart disease of native coronary artery without angina pectoris; E11.9 Type 2 diabetes mellitus without complications; I11.0 Hypertensive heart disease with heart failure; I50.9 Heart failure, unspecified; Z87.891 Personal history of nicotine dependence; Z79.899 Other long term (current) drug therapy; Z79.84 Long term (current) use of oral hypoglycemic drugs; Z79.82 Long term (current) use of aspirin
CPT/HCPCS: 36415; 71045; 80053; 82553; 83605; 83690; 83880; 84484; 85025; 93005; 94640; 94760; J7620

== ENCOUNTER 2017-06-28 20:30 | Outpatient (CLI) | payer OTHER | END 2017-06-28 20:31 | disposition home or self-care (01) | LOC: SLEEPLAB 20:30 | PROVIDERS: ATTEND Internal Medicine | DX: G47.9 Sleep disorder, unspecified (principal); G47.33 Obstructive sleep apnea (adult) (pediatric); I25.110 Atherosclerotic heart disease of native coronary artery with unstable angina pectoris; E11.9 Type 2 diabetes mellitus without complications; I10 Essential (primary) hypertension; R06.89 Other abnormalities of breathing | CPT/HCPCS: 95811 ==

== ENCOUNTER 2017-08-28 23:09 | Emergency (ER) | payer OTHER ==
[2017-08-28 23:36] LABS: #Basophils 0.1 thou/uL (0.0-0.2); #Eosinphils 0.1 thou/uL (0.0-0.7); #Lymphocytes 2.9 thou/uL (1.20-3.40); #Monocytes 0.7 thou/uL (0.11-0.59); #Neutrophils 4.2 thou/uL (1.40-6.50); %Basophils 0.9 % (0.0-1.0); %Lymphocytes 36.8 % (21.0-51.0); %Monocytes 8.4 % (0.0-10.0); %Neutrophils 52.9 % (42.0-75.0); Hemoglobin 13.9 g/dL (14.0-18.0); Mean Corpuscular HGB CONC 36.1 g/dL (32.0-36.0); Mean Corpuscular Hemoglobin 32.6 pg (27.0-31.0); Mean Corpuscular Volume 90.4 fl (80.0-94.0); Platelet Count 135 thou/uL (130-400); RBC Distribution Width 11.8 % (11.5-14.5); Red Blood Cell (RBC) Count 4.26 mill/uL (4.70-6.10); White Blood Cell (WBC) Count 7.9 thou/uL (4.8-10.8)
[2017-08-28 23:58] LABS: ALT (SGPT) 48 U/L (8-55); AST (SGOT) 25 U/L (5-34); Albumin 3.7 g/dL (3.5-5.0); Alkaline Phosphatase 61 U/L (40-150); Anion Gap 18 mmol/L (10-20); BUN (Urea Nitrogen) 20 mg/dL (8.4-25.7); Bilirubin, Total 0.3 mg/dL (0.2-1.2); CK (CPK) 70 U/L (30-200); Calc. Creatinine Clearance 0 mL/min (70-130); Calcium 9.8 mg/dL (7.8-10.44); Carbon Dioxide 19 mmol/L (22-29); Chloride 102 mmol/L (98-107); Estimated GFR-MDRD 62; Globulin 2.5 g/dL (2.4-3.5); Glucose 378 mg/dL (70-105); Potassium 4.3 mmol/L (3.5-5.1); Protein, Total 6.2 g/dL (6.0-8.3); Sodium 135 mmol/L (136-145)
[2017-08-29 00:02] LABS: CKMB 1.1 ng/mL (0-6.6); Troponin I Less than 0.010 ng/mL (< 0.028)
--- NOTE | 2017-08-29 09:05 | RAD ---
PORTABLE AP CHEST: Date: 08/28/17 HISTORY: Dyspnea. COMPARISON: 06/22/17. FINDINGS: Cardiac silhouette and pulmonary vasculature are within normal limits for the portable technique of t he study. The lungs are clear. There is mild elevation of the right hemidiaphragm. Remote left clavic le fracture is again seen. There has been no interval change from the prior exam. IMPRESSION: No acute cardiopulmonary process. POS: [facility]
--- NOTE | 2017-08-29 11:45 | CT ---
PRELIMINARY REPORT/[facility]/EMERGENTY AFTER-HOURS PROCEDURE CT Angiography Chest With Intravenous Contrast CLINICAL HISTORY: 62 years old, male; Signs and symptoms; Dyspnea and shortness of breath; Patient HX: M62 presented to ed C/O SOB onset this evening after patient woke up from a nap. Pt reports SOB was like he was not a ble to move air well enough. Ems reports patient was placed on 2l with rapid improvement. Ems notes e kg was sinus tachy. Pt reports HX of copd, chf, and emphysema. TECHNIQUE: Axial computed tomographic angiography images of the chest with intravenous contrast using pulmonary embolism protocol. MIP reconstructed images were created and reviewed. COMPARISON: No relevant prior studies available. FINDINGS: Pulmonary arteries: No pulmonary embolism. Aorta: No acute findings. Lungs: Minimal bilateral upper and lower lobe bronchial wall thickening, compatible with reactive air way disease or bronchitis. Calcified granuloma within the anterior left upper lobe. Pleural space: Normal. No significant effusion. No pneumothorax. Heart: Moderate atherosclerotic calcification of the coronary arteries. Bones/joints: Multilevel thoracic spine degenerative changes. No acute fracture. No dislocation. Soft tissues: Normal. Lymph nodes: Normal. IMPRESSION: 1. No pulmonary embolism. 2. Minimal bilateral upper and lower lobe bronchial wall thickening, compatible with reactive airway disease or bronchitis. 3. Incidental/non-acute findings are described above. Thank you for allowing us to participate in the care of your patient. Dictated and Authenticated by: Salty Johnson MD 08/29/2017 1:45 AM Central Time ([place] & [place]) FINAL REPORT CT ANGIOGRAM CHEST WITH CONTRAST: Date: 08/29/17 HISTORY: Dyspnea. COMPARISON: Prior CT chest dated 04/19/17. TECHNIQUE: CT angiogram chest performed after the intravenous administration of contrast. 3D rendering provided. FINDINGS/IMPRESSION: Findings and impression are concordant with the preliminary report. POS: [facility]
[2017-08-29] MEDS ORDERED: ISOVUE-370 76%-LOCM 1 ML ONE (14:19)
== END 2017-08-29 02:26 | disposition home or self-care (01) ==
LOC: ERS 23:09
DX: J44.1 Chronic obstructive pulmonary disease with (acute) exacerbation (principal); I11.0 Hypertensive heart disease with heart failure; I50.9 Heart failure, unspecified; I25.10 Atherosclerotic heart disease of native coronary artery without angina pectoris; E11.9 Type 2 diabetes mellitus without complications; M19.90 Unspecified osteoarthritis, unspecified site; G47.30 Sleep apnea, unspecified; Z87.891 Personal history of nicotine dependence; Z79.84 Long term (current) use of oral hypoglycemic drugs; Z79.82 Long term (current) use of aspirin; Z79.02 Long term (current) use of antithrombotics/antiplatelets; Z79.52 Long term (current) use of systemic steroids; Z79.899 Other long term (current) drug therapy
CPT/HCPCS: 36415; 71045; 71275; 80053; 82550; 82553; 83880; 84484; 85025; 93005

== ENCOUNTER 2018-03-30 16:35 | Emergency (ER) | payer OTHER ==
[2018-03-30 17:09] LABS: #Basophils 0.1 thou/uL (0.0-0.2); #Eosinphils 0.1 thou/uL (0.0-0.7); #Lymphocytes 2.4 thou/uL (1.20-3.40); #Monocytes 0.6 thou/uL (0.11-0.59); #Neutrophils 4.1 thou/uL (1.40-6.50); %Basophils 0.8 % (0.0-1.0); %Eosinophils 1.8 % (0.0-10.0); %Lymphocytes 33.3 % (21.0-51.0); %Monocytes 7.7 % (0.0-10.0); %Neutrophils 56.3 % (42.0-75.0); Hemoglobin 13.5 g/dL (14.0-18.0); Mean Corpuscular HGB CONC 34.2 g/dL (32.0-36.0); Mean Corpuscular Hemoglobin 31.4 pg (27.0-31.0); Platelet Count 137 thou/uL (130-400); Red Blood Cell (RBC) Count 4.28 mill/uL (4.70-6.10); White Blood Cell (WBC) Count 7.3 thou/uL (4.8-10.8)
[2018-03-30 17:27] LABS: ALT (SGPT) 40 U/L (8-55); AST (SGOT) 24 U/L (5-34); Albumin 3.8 g/dL (3.5-5.0); Alkaline Phosphatase 58 U/L (40-150); Anion Gap 13 mmol/L (10-20); BUN (Urea Nitrogen) 17 mg/dL (8.4-25.7); Bilirubin, Total 0.3 mg/dL (0.2-1.2); CK (CPK) 278 U/L (30-200); Calc. Creatinine Clearance 0 mL/min (70-130); Calcium 9.5 mg/dL (7.8-10.44); Carbon Dioxide 24 mmol/L (22-29); Chloride 104 mmol/L (98-107); Estimated GFR-MDRD 64; Globulin 2.6 g/dL (2.4-3.5); Glucose 258 mg/dL (70-105); Potassium 4.5 mmol/L (3.5-5.1); Protein, Total 6.4 g/dL (6.0-8.3); Sodium 136 mmol/L (136-145)
[2018-03-30 17:32] LABS: CKMB 3.1 ng/mL (0-6.6); Troponin I Less than 0.010 ng/mL (< 0.028)
--- NOTE | 2018-03-30 17:44 | RAD ---
PORTABLE CHEST: 03/30/18 HISTORY: Shortness of breath. COMPARISON: 08/28/17 Lungs appear clear. No infiltrate or vascular congestion. Heart size is prominent but stable. IMPRESSION: No acute process. POS: [facility]
== END 2018-03-30 18:21 | disposition home or self-care (01) ==
LOC: ERS 16:35
DX: I11.0 Hypertensive heart disease with heart failure (principal); I50.9 Heart failure, unspecified; I25.10 Atherosclerotic heart disease of native coronary artery without angina pectoris; E11.9 Type 2 diabetes mellitus without complications; G47.30 Sleep apnea, unspecified; F32.9 Major depressive disorder, single episode, unspecified; F17.210 Nicotine dependence, cigarettes, uncomplicated; Z79.899 Other long term (current) drug therapy; Z79.82 Long term (current) use of aspirin; Z79.84 Long term (current) use of oral hypoglycemic drugs
CPT/HCPCS: 36415; 71045; 80053; 82550; 82553; 83880; 84484; 85025; 93005; 94760

== ENCOUNTER 2018-05-13 21:55 | Inpatient (IN) | payer OTHER ==
[~2018-05-13 21:55] MED LIST: ISOVUE-370 76%-LOCM 1 ML ONE
--- NOTE | 2018-05-13 22:29 | RAD ---
FRONTAL VIEW CHEST SERIES: 05/13/18 COMPARISON: 03/30/18 INDICATION: Emergency exam for chest pain, short of breath. FINDINGS: There is accentuation of the cardiomediastinal silhouette by patient rotation and portable technique. No consolidation, effusion or pneumothorax. IMPRESSION: No focal consolidation. Accentuation of cardiomediastinal silhouette. POS: [facility]
[2018-05-13 22:47] LABS: #Basophils 0.1 thou/uL (0.0-0.2); #Eosinphils 0.1 thou/uL (0.0-0.7); #Lymphocytes 3.2 thou/uL (1.20-3.40); #Monocytes 0.5 thou/uL (0.11-0.59); #Neutrophils 4.7 thou/uL (1.40-6.50); %Basophils 1.2 % (0.0-1.0); %Eosinophils 1.5 % (0.0-10.0); %Lymphocytes 36.6 % (21.0-51.0); %Monocytes 6.1 % (0.0-10.0); %Neutrophils 54.6 % (42.0-75.0); Hemoglobin 14.1 g/dL (14.0-18.0); Mean Corpuscular HGB CONC 35.7 g/dL (32.0-36.0); Mean Corpuscular Hemoglobin 32.2 pg (27.0-31.0); Mean Corpuscular Volume 90.3 fL (78.0-98.0); Mean Platelet Volume 10.3 fL (7.4-10.4); Platelet Count 152 thou/uL (130-400); RBC Distribution Width 12.1 % (11.5-14.5); Red Blood Cell (RBC) Count 4.39 mill/uL (4.70-6.10); White Blood Cell (WBC) Count 8.6 thou/uL (4.8-10.8)
[2018-05-13 22:53] LABS: PTT 27.1 SEC (22.9-36.1); Prothrombin Time 13.3 SEC (12.0-14.7)
[2018-05-13 22:54] LABS: D-Dimer Test 0.3 *mcg/mL (0.27-0.43)
[2018-05-13 23:09] LABS: ALT (SGPT) 41 U/L (8-55); AST (SGOT) 28 U/L (5-34); Albumin 3.8 g/dL (3.4-4.8); Alkaline Phosphatase 63 U/L (40-150); Anion Gap 16 mmol/L (10-20); BUN (Urea Nitrogen) 21 mg/dL (8.4-25.7); Bilirubin, Total 0.4 mg/dL (0.2-1.2); CK (CPK) 62 U/L (30-200); Calc. Creatinine Clearance 0 mL/min (70-130); Calcium 10.1 mg/dL (7.8-10.44); Carbon Dioxide 22 mmol/L (23-31); Chloride 98 mmol/L (98-107); Estimated GFR-MDRD 53; Glucose 411 mg/dL (80-115); Potassium 4.3 mmol/L (3.5-5.1); Protein, Total 6.8 g/dL (5.8-8.1); Sodium 132 mmol/L (136-145)
[2018-05-14] MEDS ORDERED: predniSONE 20 MG TAB ONE (00:44)
[2018-05-14] MEDS ORDERED: Ondansetron PF 4 MG/2 ML Vial ONE (00:45)
[2018-05-14] MEDS ORDERED: Ketorolac Tromethamine 30 MG/ML VIAL ONE (00:45)
[2018-05-14] MEDS ORDERED: Azithromycin 500 MG VIAL ONE (00:46)
[2018-05-14] MEDS ORDERED: HumaLOG 300 UNITS/3 ML VIAL SC PRN (06:30)
[2018-05-14] MEDS ORDERED: Dextrose 5% in Water 1,000 ML IV PRN ×3 (06:30→14:21)
[2018-05-14] MEDS ORDERED: Dextrose 50% Abboject 50 ML SYRINGE IVP PRN (06:30)
[2018-05-14] MEDS ORDERED: traMADol HCl 50 MG TAB ONE (06:33)
[2018-05-14] MEDS ORDERED: HumaLOG 300 UNITS/3 ML VIAL ONE (06:34)
--- NOTE | 2018-05-14 07:23 | CT ---
CT CHEST WITH CONTRAST CT ABDOMEN AND PELVIS WITH CONTRAST CT THORACIC SPINE WITH CORONAL AND SAGITTAL REFORMATTED IMAGES CT LUMBAR SPINE WITH CORONAL AND SAGITTAL REFORMATTED IMAGES: Date: 05/13/18 INDICATION: Pain. Shortness of breath, acute onset. FINDINGS: There is no lobar consolidation of the lungs. There is low attenuation of hepatic parenchyma indicati ng hepatic steatosis. Nonobstructive left nephrolithiasis is seen. There is diffuse diverticular dise ase of the left hemicolon. There is a noninflamed, fat-containing periumbilical hernia. The bowel is incompletely evaluated without enteric contrast. There is no free air or ascites. Mild scattered vasc ular disease is noted. The thoracoabdominal aorta is nonaneurysmal. Reformatted imaging of the thoracic and lumbar spine reveals multilevel end plate irregularity with g as vacuum phenomenon. There is also height loss of the inferior L3 vertebral body and superior L4 edy tebral body, favored to reflect Schmorl's nodes related to chronic degenerative process. There is inc idental note of sclerosis and superior vertebral body height loss within the lower cervical spine, in completely evaluated. IMPRESSION: 1. Hepatic steatosis. 2. Periumbilical hernia. 3. Colonic diverticulosis. 4. Multilevel end plate irregularities of the imaged lower cervical, as well as lumbar spine, as dis cussed above. 5. Nonobstructive left nephrolithiasis. POS: [facility]
[2018-05-14 08:15] LABS: Anion Gap 15 mmol/L (10-20); BUN (Urea Nitrogen) 24 mg/dL (8.4-25.7); Calc. Creatinine Clearance 0 mL/min (70-130); Calcium 9.6 mg/dL (7.8-10.44); Carbon Dioxide 19 mmol/L (23-31); Chloride 104 mmol/L (98-107); Estimated GFR-MDRD 62; Glucose 388 mg/dL (80-115); Potassium 5.4 mmol/L (3.5-5.1); Sodium 133 mmol/L (136-145)
[2018-05-14] MEDS ORDERED: Nitroglycerin 0.4 MG TAB (25 Tab Bottle) PO PRN (09:58)
[2018-05-14] MEDS ORDERED: Enoxaparin Sodium 100 MG/ML SYRINGE SC SCH (10:00)
[2018-05-14] MEDS ORDERED: Insulin Glargine 20 UNITS in Pre-Filled Syringe 1 EACH SC SCH (10:00)
[2018-05-14] MEDS ORDERED: Clopidogrel Bisulfate 75 MG TAB PO SCH (10:00)
--- NOTE | 2018-05-14 13:22 | HP ---
CHIEF COMPLAINT: Chest discomfort. HISTORY OF PRESENT ILLNESS: The patient is a 63-year-old white male with diabetes mellitus type 2, hypertension, coronary artery disease, and obesity presented to the emergency room with worsening shortness of breath of 2 weeks duration. His shortness of breath got worse over the last 2 to 3 days for which he presented to the emergency room. Shortness of breath is worse on [id number] exertion as well as on lying down flat. He denies significant leg swelling. He feels lightheaded and dizzy, however, denies chest discomfort, palpitations, or syncope. No recent immobilization travel reported. He denies any fever, chills, cough, or heartburn. In the emergency room, initial vital signs showed temperature 98.3, respiration 20, pulse rate of 87, with blood pressure 99/61. His lowest blood pressure was 87/51 with O2 saturation 97% on room air. His EKG showed sinus rhythm with nonspecific ST-T wave changes. Chest x-ray was negative for infiltrate or edema. His chest, abdomen and pelvis CT scan done in the emergency room was negative for acute findings. He received 60 mg prednisone, 30 mg Toradol, DuoNeb, aspirin, azithromycin, and IV fluids in the emergency room. PAST MEDICAL HISTORY: 1. Diabetes mellitus type 2. 2. Coronary artery disease with last cardiac catheterization in 12/2016 that showed severe disease in the distal circumflex and diagonal. 3. Obesity. 4. Hypertension. 5. Dyslipidemia. 6. Sleep apnea. Currently not on CPAP. 7. Benign prostatic hypertrophy. 8. Nonalcoholic steatohepatitis. PAST SURGICAL HISTORY: 1. Cardiac catheterization as discussed above. 2. Coronary stenting. 3. Right knee surgery. ALLERGIES: THE PATIENT IS ALLERGIC TO MORPHINE. CURRENT HOME MEDICATION: The patient is unable to recall any of his home medication. He is on aspirin, Plavix. He is unable to see a digital print operator due to insurance reasons. He is currently out of [facility]. SOCIAL HISTORY: He drinks alcohol rarely. He continues to smoke up to half pack a day. He has a history of cannabis abuse. He lives at home with his family. FAMILY HISTORY: Positive for heart disease and diabetes. REVIEW OF SYSTEMS: All other review of systems were reviewed and were found negative. PHYSICAL EXAMINATION: VITAL SIGNS: As discussed above. His last blood pressure was 134/93. GENERAL: A 63-year-old male in no apparent distress. He denies significant shortness of breath while resting. HEENT: Head; atraumatic, normocephalic. Sclerae anicteric. Moist mucous membranes. No oral lesion. NECK: Supple. No JVD appreciated. No carotid bruits. LUNGS: Showed few rales at bases. No significant wheezing appreciated. HEART: S1, S2 present. Regular rate and rhythm. No rubs or gallops appreciated. No significant murmurs. ABDOMEN: Soft, obese. Bowel sounds present. No rebound or guarding. EXTREMITIES: Trace edema in bilateral lower extremity. No calf tenderness. SKIN: Warm and dry. LYMPH NODES: No palpable lymph nodes in the neck. PERIPHERAL/VASCULAR: Radial pulses palpable bilaterally. MUSCULOSKELETAL: No joint swelling, tenderness. LABORATORY FINDINGS: Troponin negative. WBC 8.6 with hemoglobin 14.1. D-dimer was negative. Chemistry showed sodium 132, potassium 4.3, chloride 98, bicarb 22, BUN 21, creatinine 1.37. Lactic acid on admission was 3.9, repeat lactic acid 2.0. Lipase was negative. BNP 11.2. Repeat potassium was 5.4 with bicarbonate of 19. Ketones 0.32. Blood cultures have been sent and pending at this time. Chest x-ray by my review as discussed above. The CT scan of the abdomen and pelvis as discussed above. EKG by my review as discussed above. IMPRESSION: 1. Shortness of breath, consistent with unstable angina. 2. Severe coronary artery disease. 3. Hypertension. 4. Diabetes mellitus type 2, uncontrolled, probably secondary to prednisone received in the emergency room. 5. Nonalcoholic steatohepatitis. 6. Benign prostatic hypertrophy. 7. Dyslipidemia. 8. Sleep apnea. Currently not on CPAP. 9. Diverticulosis. 10. Nonobstructing left nephrolithiasis. 11. Degenerative joint disease. 12. Mild tricuspid regurgitation. 13. Normal left ventricular ejection fraction of 55% to 60% in the past. 14. Hyperkalemia probably secondary to metabolic acidosis. 15. Chronic kidney disease stage 2 with mild acute kidney injury. 16. Lactic acidosis probably secondary to hypotension. PLAN: The patient will be monitored in the telemetry unit as inpatient. We will start him on Lovenox 1 mg/kg for unstable angina. We will continue aspirin, Plavix from last discharge. We will hold HUSAM inhibitor due to hyperkalemia. We will repeat basic metabolic profile later today. We will start him on low-dose beta blockers as well as Imdur. We will resume home dose of Lantus as well as insulin sliding scale. Gentle IV hydration for now due to hypotension as well as contrast exposure. Plan of care was discussed with the patient in detail. He stated understanding. The patient will require 2 to 3 days for stabilization. Job ID: [id number]
[2018-05-14 13:35] LABS: Anion Gap 17 mmol/L (10-20); BUN (Urea Nitrogen) 20 mg/dL (8.4-25.7); Calc. Creatinine Clearance 0 mL/min (70-130); Calcium 9.7 mg/dL (7.8-10.44); Carbon Dioxide 19 mmol/L (23-31); Chloride 101 mmol/L (98-107); Estimated GFR-MDRD 60; Glucose 432 mg/dL (80-115); Potassium 4.8 mmol/L (3.5-5.1); Sodium 132 mmol/L (136-145)
[2018-05-14 16:43] VITALS: BMI 40.3
[2018-05-14] MEDS: Carvedilol 3.125 MG TAB PO SCH (17:57)
[2018-05-14] MEDS: Sodium Chloride 0.9% 1,000 ML IV SCH (17:58)
[2018-05-14] MEDS: HumaLOG 300 UNITS/3 ML VIAL SC PRN ×2 (18:08→20:18)
[2018-05-14] MEDS: Enoxaparin Sodium 100 MG/ML SYRINGE SC SCH (20:18)
[2018-05-14] MEDS: Acetaminophen 500 MG TAB PO PRN (20:18)
[2018-05-14] MEDS: Insulin Glargine 20 UNITS in Pre-Filled Syringe 1 EACH SC SCH (21:10)
--- NOTE | 2018-05-15 03:34 | CON ---
DATE OF CONSULTATION: 05/14/2018 INDICATION FOR CONSULTATION: A 63-year-old gentleman with history of known coronary artery disease, I believe, he is status post angioplasty and stent placement. He is 63 years old. He has morbid obesity and type 2 diabetes. For the last several days, he has been short of breath. He seems to be in acute short of breath since about Gabrielle time. Last night, it became worse that he presented to the hospital. He has been seen in the past by Dr. Reyes. Unfortunately, he has not followed up. He said due to financial reasons. He also not been taking his medications due to financial reasons. 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 His last cardiac catheterization was December of 2016 and he was found to have severe coronary disease. He had a diagnosis with a 2 mm vessel, which was too small for stent placement. He also had mild disease in LAD in the right coronary artery. He had ejection fraction of about 50% and he had normal LVEDP at that time. He did have some distal left circumflex disease in 2nd obtuse marginal branch also which was too small for any stent placement. It would appear that probably he has not had stent placement, but has undergone angioplasty. He may have had angioplasty, but no stent placements from what I can determine. At this time, he presented with shortness of breath and was admitted for further evaluation and treatment. He also has had some bronchitis and possible asthma. He has been coughing quite a bit. His cardiac enzymes are unremarkable. His EKG is unremarkable. He also appears to have diabetes is his multiple risk factors. He had a CT scan, I believe, in the emergency room, which did not show any evidence of pulmonary emboli, but at the time he arrived, his O2 saturations, I believe, were 97%, but he was somewhat hypotensive in the emergency room. At this time, he is feeling better. He is on oxygen and still having some cough and slight shortness of breath when he exerts himself or when he walks in the room and in the hallways. There is some discrepancy about whether or not he may have had a stent placed several years ago and ejection fraction most recently was about 48%, but do not have documentation of where the stent is if he has a stent. PAST MEDICAL HISTORY: Significant for coronary artery disease with possible angioplasty in the past. No history of stent placement. He has diabetes, obesity, hypertension, dyslipidemia, sleep apnea, but does not wear CPAP mask. He has hypertension, benign prostatic hypertrophy. He also has a fatty liver, but he is a nonalcoholic. He has had right knee surgery. ALLERGIES: HE IS ALLERGIC TO MORPHINE. MEDICATIONS: Prior to admission, should have included aspirin and Plavix previously in the past. He has been taking also, I believe, metformin and ramipril. SOCIAL HISTORY: He drinks occasionally. 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 He continues to smoke half a pack a day. He also has a history of cannabis abuse. He lives at home with his family. FAMILY HISTORY: Positive for diabetes and coronary artery disease. REVIEW OF SYSTEMS: A 12-point review of systems unremarkable except what is noted in the history of present illness. PHYSICAL EXAMINATION: GENERAL: Reveals a well-developed, well-nourished, overweight gentleman, who is in no acute distress at this time. Occasionally, he has some coughing during the examination. VITAL SIGNS: His temperature is 98.9, heart rate is in the 70s. It shows a sinus rhythm, respiratory rate is 18, O2 saturation 97%, blood pressure 130/75. HEENT: Shows the head to be normocephalic and atraumatic. Carotid pulses were present. CHEST: Actually was clear to auscultation. Did not show any rales, rhonchi, or wheezing at this time. CARDIOVASCULAR: Reveals a regular rate and rhythm. He has normal S1 and S2. I cannot hear an S3 nor an S4. ABDOMEN: Morbid obesity with positive bowel sounds. No organomegaly or masses are noted. EXTREMITIES: No clubbing, cyanosis, or edema. NEUROLOGIC: The patient appears to be intact without any focal motor deficits. SKIN: Warm and dry. LABORATORY DATA: Hemoglobin of 14.1. Cardiac enzymes are negative. His BNP was only 11.2. Potassium is 5.4. His creatinine is 1.37, and as noted above, his blood sugar was elevated at 411 on admission and this has decreased now to 356 and still under very poor control. IMPRESSION: 1. Probable bronchitis with possible congestive heart failure exacerbation. We will request a repeat echocardiogram to see whether or not the left ventricular systolic function has decreased. He may need to undergo yet another cardiac catheterization, but he does have small vessels and may not be a candidate for intervention. 2. Diabetes. This will be dealt by the primary care service. 3. Hypertension. This is under reasonable control at this time and we will continue the medications. 4. History of sleep apnea. He does not wear CPAP mask, maybe he cannot afford. He also does not have home oxygen, but most likely does not meet the criteria. 5. History of dyslipidemia. He is not on any medications for his cholesterol and I would advise that we start him at least a statin medication, at least either Pravachol that he can afford or Lipitor which will be paid by Medicaid. We will continue to follow the patient with you, but at this time it would appear overall that the cardiac status is relatively stable. I will obtain the echocardiogram. We will also consider perhaps even repeating a stress test while the patient is in the hospital. Job ID: [id number]
[2018-05-15 06:25] LABS: #Eosinphils 0.2 thou/uL (0.0-0.7); #Monocytes 0.6 thou/uL (0.11-0.59); #Neutrophils 3.6 thou/uL (1.40-6.50); %Basophils 0.2 % (0.0-1.0); %Eosinophils 2.2 % (0.0-10.0); %Lymphocytes 41.4 % (21.0-51.0); %Monocytes 7.4 % (0.0-10.0); %Neutrophils 48.8 % (42.0-75.0); Mean Corpuscular HGB CONC 34.7 g/dL (32.0-36.0); Mean Corpuscular Hemoglobin 31.5 pg (27.0-31.0); Mean Corpuscular Volume 90.9 fL (78.0-98.0); Mean Platelet Volume 9.4 fL (7.4-10.4); Platelet Count 130 thou/uL (130-400); RBC Distribution Width 11.9 % (11.5-14.5); Red Blood Cell (RBC) Count 4.12 mill/uL (4.70-6.10); White Blood Cell (WBC) Count 7.3 thou/uL (4.8-10.8)
[2018-05-15 06:38] LABS: Anion Gap 11 mmol/L (10-20); BUN (Urea Nitrogen) 15 mg/dL (8.4-25.7); Calc. Creatinine Clearance 161 mL/min (70-130); Calcium 9.2 mg/dL (7.8-10.44); Carbon Dioxide 24 mmol/L (23-31); Chloride 105 mmol/L (98-107); Estimated GFR-MDRD 82; Glucose 260 mg/dL (80-115); Magnesium 1.8 mg/dL (1.6-2.6); Potassium 4.3 mmol/L (3.5-5.1); Sodium 136 mmol/L (136-145)
[2018-05-15] MEDS: Sodium Chloride 0.9% 1,000 ML IV SCH (08:54)
[2018-05-15] MEDS: Insulin Glargine 20 UNITS in Pre-Filled Syringe 1 EACH SC SCH ×2 (08:55→20:29)
[2018-05-15] MEDS: Enoxaparin Sodium 100 MG/ML SYRINGE SC SCH (08:55)
[2018-05-15] MEDS: Carvedilol 3.125 MG TAB PO SCH ×2 (08:55→16:32)
[2018-05-15] MEDS: Clopidogrel Bisulfate 75 MG TAB PO SCH (08:55)
[2018-05-15] MEDS: Aspirin 81 mg Enteric Coated Tablet PO SCH (08:55)
[2018-05-15] MEDS ORDERED: Aspirin 325 MG TAB PO SCH (09:00)
[2018-05-15] MEDS: HumaLOG 300 UNITS/3 ML VIAL SC PRN ×3 (11:37→20:29)
[2018-05-15] MEDS: Furosemide 40 MG TAB PO SCH (13:54)
[2018-05-15] MEDS ORDERED: Furosemide 20 MG TAB PO SCH (14:00)
--- NOTE | 2018-05-15 15:56 | PDOC.PN ---
- Subjective Encounter Start Date: 05/15/18 Encounter Start Time: 08:00 Patient seen and examined for Unstable angina. SOB improving. No CP. No new complaints. No overnight events - Objective MAR Reviewed: Yes Vital Signs & Weight: Vital Signs (12 hours) Temp Pulse Resp BP BP BP BP 05/15/18 13:04 68 20 05/15/18 11:40 98.5 F 72 18 140/60 05/15/18 07:50 05/15/18 07:38 98.1 F 73 16 137/74 05/15/18 05:00 143/69 H 119/63 120/72 05/15/18 04:00 97.8 F 72 16 104/75 Pulse Ox 05/15/18 13:04 96 05/15/18 11:40 94 L 05/15/18 07:50 98 05/15/18 07:38 98 05/15/18 05:00 05/15/18 04:00 98 Weight Weight 303 lb 9.6 oz Result Diagrams: 05/15/18 05:54 05/15/18 05:53 Additional Labs: Accuchecks 05/15/18 05/15/18 05/14/18 10:52 05:16 19:58 POC Glucose 341 H 238 H 301 H 05/14/18 17:54 POC Glucose 327 H EKG Reviewed by me: Yes (Tele SR) Phys Exam - Physical Examination Constitutional: NAD Respiratory: no wheezing, no rhonchi Cardiovascular: RRR, no rub Gastrointestinal: soft, non-tender, positive bowel sounds Musculoskeletal: no edema Neurological: moves all 4 limbs Dx/Plan (1) Unstable angina Status: Acute (2) CAD (coronary artery disease) Code(s): I25.10 - ATHSCL HEART DISEASE OF [place] CORONARY ARTERY W/O ANG PCTRS Status: Chronic (3) HTN (hypertension) Code(s): I10 - ESSENTIAL (PRIMARY) HYPERTENSION Status: Chronic (4) DM2 (diabetes mellitus, type 2) Status: Chronic Qualifiers: Chronic kidney disease stage: stage 2 (mild) (5) STEPHANIE (obstructive sleep apnea) Code(s): G47.33 - OBSTRUCTIVE SLEEP APNEA (ADULT) (PEDIATRIC) Status: Acute (6) Morbid obesity with BMI of 40.0-44.9, adult Code(s): E66.01 - MORBID (SEVERE) OBESITY DUE TO EXCESS CALORIES; Z68.41 - BODY MASS INDEX (BMI) 40.0-44.9, ADULT Status: Chronic (7) Other issues per previous notes - Plan DVT proph w/lovenox, DVT proph w/SCDs * Add PO Lasix * Add Nebs * Cont other meds as below * Await Echo * AM labs * Family to bring CPAP * DC SQ Lovenox * Cont ASA/Plavix Review of Systems - Review of Systems Cardiovascular: negative: chest pain, palpitations, orthopnea, paroxysmal nocturnal dyspnea, edema, light headedness, other Gastrointestinal: negative: Nausea, Vomiting, Abdominal Pain, Diarrhea, Constipation, Melena, Hematochezia, Other - Medications/Allergies Allergies/Adverse Reactions: Allergies Allergy/AdvReac Type Severity Reaction Status Date / Time morphine Allergy Verified 01/02/17 04:19 Medications: Current Medications Acetaminophen (Tylenol) 1,000 mg PO Q6H PRN PRN Reason: Headache/Fever or Pain 1-3 Last Admin: 05/14/18 20:18 Dose: 1,000 mg Albuterol/Ipratropium (Duoneb) 3 ml NEB [id number] PRN PRN Reason: SOB &/or Wheezing Albuterol/Ipratropium (Duoneb) 3 ml NEB [id number] SCH Last Admin: 05/15/18 13:04 Dose: 3 ml Aspirin (Ecotrin) 81 mg PO DAILY [facility] Last Admin: 05/15/18 08:55 Dose: 81 mg Carvedilol (Coreg) 3.125 mg PO BID-[facility] Last Admin: 05/15/18 08:55 Dose: 3.125 mg Clopidogrel [facility] ([facility]ix) [facility] Last Admin: 05/15/18 08:55 Dose: 75 mg Dextrose/Water (Dextrose 50%) 25 gm IVP PRN PRN PRN Reason: HYPOGLYCEMIA PROTOCOL Fish Oil (Fish Oil) 1,000 mg PO DAILY [facility] Furosemide (Lasix) 40 mg PO 0900,1400 [facility] Last Admin: 05/15/18 13:54 Dose: 40 mg Glucagon (Glucagon) 1 mg IM PRN PRN PRN Reason: HYPOGLYCEMIA PROTOCOL Insulin Glargine 20 units/ (Miscellaneous Medication) 0.2 mls @ 0 mls/hr SC BID [facility] Last Admin: 05/15/18 08:55 Dose: 0.2 mls Dextrose/Water (D5w) 1,000 mls @ 0 mls/hr IV .Q0M PRN PRN Reason: Hypoglycemia Insulin Human Lispro (Humalog) 0 units SC .BEDTIME SLIDING SC PRN PRN Reason: Bedtime Correctional Scale Last Admin: 05/14/18 20:18 Dose: 4 unit Insulin Human Lispro (Humalog) 0 units SC .AGGRESSIVE SLIDING PRN PRN Reason: Aggressive Correctional Scale Last Admin: 05/15/18 11:37 Dose: 11 unit Iron/Minerals/Multivitamins (Theragran M) 1 tab PO DAILY [facility] Isosorbide Mononitrate (Imdur Er) 30 mg PO DAILY [facility] Last Admin: 05/15/18 08:55 Dose: 30 mg Nitroglycerin (Nitrostat) 0.4 mg PO Q5MIN PRN PRN Reason: Chest Pain Sodium Chloride (Flush - Normal Saline) 10 ml IVF PRN PRN PRN Reason: Saline Flush Terazosin HCl (Hytrin) 2 mg PO HS [facility]
[2018-05-15] MEDS: Acetaminophen 500 MG TAB PO PRN (16:32)
--- NOTE | 2018-05-15 17:32 | PDOC.CTH ---
Cardiology Progress Note - Subjective The pt seen and examined. No overnight events. No cardiac complaints. the pt cont. coughing hard per family. - Objective Vital Signs Temp Pulse Resp BP BP Pulse Ox 05/15/18 15:54 98.0 F 81 18 128/72 93 L 05/15/18 13:04 68 20 96 05/15/18 11:40 98.5 F 72 18 140/60 94 L 05/15/18 07:50 98 05/15/18 07:38 98.1 F 73 16 137/74 98 Weight 303 lb 9.6 oz - Physical Examination General/Neuro: alert & oriented x3 Neck: no JVD present Lungs: other: (coarses and diminished at bases) Heart: RRR Abdomen: soft Extremities: other: (No edema) - Telemetry Telemetry Rhythm: SR - Labs Result Diagrams: 05/15/18 05:54 05/16/18 05:21 Troponin/CKMB Troponin I Less than 0.010 ng/mL (< 0.028) 05/14/18 05:45 - Assessment/Plan 1. Cp possible 2/2 acute bronchitis - resolved; Echo on 05/15/2018 showed EF 60- 65%, mild MR, trace TR, and mild VA 2. CAD with hx of PTCA but no PCI in 12/2016 - vessels are too small for stent placement; On ASA, Plavix, BBlocker, and Imdur. May start Statin? 3. HTN - stable 4. DM type 2 - managed by PCP 5. STEPHANIE - Family to bring CPAP 6. obese - weight management education given to the pt 7. current smoker with 1/2pk/day - smoking cessation education given to the pt and family 8. Hyperlipidemia - on Statin MAR reviewed * Echo on 05/15/2018 showed EF 60-65%, mild MR, trace TR, and mild VA. Pt. seen and eval. by me. I agree with the A/P by the CRAFT ARTIST. Chest - decr. breath sounds no wheeze.. RRR, No edema. Review of Systems - Review of Systems Constitutional: reports: no symptoms reported EENTM: reports: no symptoms reported Respiratory: reports: see HPI Cardiac (ROS): reports: no symptoms reported ABD/GI: reports: no symptoms reported : reports: no symptoms reported Musculoskeletal: reports: no symptoms reported Skin: reports: no symptoms reported
[2018-05-15] MEDS: Terazosin HCl 1 MG CAP PO SCH (20:32)
[2018-05-16] MEDS: Acetaminophen 500 MG TAB PO PRN ×2 (01:27→18:00)
[2018-05-16 06:17] LABS: Anion Gap 13 mmol/L (10-20); BUN (Urea Nitrogen) 16 mg/dL (8.4-25.7); Calc. Creatinine Clearance 164 mL/min (70-130); Calcium 9.7 mg/dL (7.8-10.44); Carbon Dioxide 26 mmol/L (23-31); Chloride 102 mmol/L (98-107); Estimated GFR-MDRD 84; Glucose 274 mg/dL (80-115); Magnesium 1.6 mg/dL (1.6-2.6); Potassium 4.4 mmol/L (3.5-5.1); Sodium 137 mmol/L (136-145)
[2018-05-16] MEDS ORDERED: Magnesium Sulfate 2 GM in Sodium Chloride 0.9% 100 ML IVPB SCH (06:45)
[2018-05-16] MEDS ORDERED: Magnesium 2 GM/50 ML 2 GM in Premix Bag 1 BAG IVPB SCH (07:00)
[2018-05-16] MEDS: Carvedilol 3.125 MG TAB PO SCH ×2 (09:29→16:49)
[2018-05-16] MEDS: Multivitamin W/ Minerals 1 TAB PO SCH (09:29)
[2018-05-16] MEDS: Furosemide 40 MG TAB PO SCH (09:29)
[2018-05-16] MEDS: Clopidogrel Bisulfate 75 MG TAB PO SCH (09:29)
[2018-05-16] MEDS: Aspirin 81 mg Enteric Coated Tablet PO SCH (09:30)
[2018-05-16] MEDS: HumaLOG 300 UNITS/3 ML VIAL SC PRN ×4 (09:30→21:40)
[2018-05-16] MEDS: Insulin Glargine 20 UNITS in Pre-Filled Syringe 1 EACH SC SCH (09:30)
[2018-05-16] MEDS: Fish Oil 1,000 MG CAP PO SCH (09:30)
--- NOTE | 2018-05-16 12:43 | PDOC.PN ---
- Subjective Encounter Start Date: 05/16/18 Encounter Start Time: 09:30 Patient seen and examined for SOB. Feels better. SOB improving. No CP. No new complaints. No overnight events - Objective MAR Reviewed: Yes Vital Signs & Weight: Vital Signs (12 hours) Temp Pulse Resp BP BP Pulse Ox 05/16/18 11:31 72 20 05/16/18 11:22 97.7 F 81 17 129/61 96 05/16/18 08:02 97.8 F 76 20 132/62 95 05/16/18 06:35 93 L 05/16/18 06:34 78 12 93 L 05/16/18 04:00 98 F 80 16 131/81 95 05/16/18 01:32 78 18 110/60 100 Weight Weight 301 lb 2 oz Result Diagrams: 05/15/18 05:54 05/16/18 05:21 Additional Labs: Accuchecks 05/15/18 05/15/18 20:07 17:14 POC Glucose 332 H 326 H Phys Exam - Physical Examination Constitutional: NAD Respiratory: no wheezing, no rhonchi Cardiovascular: RRR, no rub Gastrointestinal: soft, non-tender, positive bowel sounds Musculoskeletal: no edema Neurological: moves all 4 limbs Dx/Plan (1) Unstable angina Status: Acute (2) CAD (coronary artery disease) Code(s): I25.10 - ATHSCL HEART DISEASE OF [place] CORONARY ARTERY W/O ANG PCTRS Status: Chronic (3) HTN (hypertension) Code(s): I10 - ESSENTIAL (PRIMARY) HYPERTENSION Status: Chronic (4) DM2 (diabetes mellitus, type 2) Status: Chronic Qualifiers: Chronic kidney disease stage: stage 2 (mild) (5) STEPHANIE (obstructive sleep apnea) Code(s): G47.33 - OBSTRUCTIVE SLEEP APNEA (ADULT) (PEDIATRIC) Status: Acute (6) Morbid obesity with BMI of 40.0-44.9, adult Code(s): E66.01 - MORBID (SEVERE) OBESITY DUE TO EXCESS CALORIES; Z68.41 - BODY MASS INDEX (BMI) 40.0-44.9, ADULT Status: Chronic (7) Acute on chronic diastolic (congestive) heart failure Code(s): I50.33 - ACUTE ON CHRONIC DIASTOLIC (CONGESTIVE) HEART FAILURE Status : Suspected (8) Hypomagnesemia Code(s): E83.42 - HYPOMAGNESEMIA Status: Acute (9) Other issues per previous notes - Plan DVT proph w/SCDs * Change Lasix to daily * Cont ASA/Plavix * Resume Metformin * Replace Magnessium * DC later today or in AM once cleared be Cardiology Review of Systems - Review of Systems Cardiovascular: negative: chest pain, palpitations, orthopnea, paroxysmal nocturnal dyspnea, edema, light headedness, other Gastrointestinal: negative: Nausea, Vomiting, Abdominal Pain, Diarrhea, Constipation, Melena, Hematochezia, Other - Medications/Allergies Allergies/Adverse Reactions: Allergies Allergy/AdvReac Type Severity Reaction Status Date / Time morphine Allergy Verified 01/02/17 04:19 Medications: Current Medications Acetaminophen (Tylenol) 1,000 mg PO Q6H PRN PRN Reason: Headache/Fever or Pain 1-3 Last Admin: 05/16/18 01:27 Dose: 1,000 mg Albuterol/Ipratropium (Duoneb) 3 ml NEB [id number] PRN PRN Reason: SOB &/or Wheezing Albuterol/Ipratropium (Duoneb) 3 ml NEB [id number] SCH Last Admin: 05/16/18 11:31 Dose: 3 ml Aspirin (Ecotrin) 81 mg PO DAILY [facility] Last Admin: 05/16/18 09:30 Dose: 81 mg Carvedilol (Coreg) 3.125 mg PO BID-[facility] Last Admin: 05/16/18 09:29 Dose: 3.125 mg Clopidogrel Bisulfate (Plavix) 75 mg PO QAM [facility] Last Admin: 05/16/18 09:29 Dose: 75 mg Dextrose/Water (Dextrose 50%) 25 gm IVP PRN PRN PRN Reason: HYPOGLYCEMIA PROTOCOL Fish Oil (Fish Oil) 1,000 mg PO DAILY [facility] Last Admin: 05/16/18 09:30 Dose: 1,000 mg Furosemide (Lasix) 40 mg PO DAILY-[facility] Glucagon (Glucagon) 1 mg IM PRN PRN PRN Reason: HYPOGLYCEMIA PROTOCOL Insulin Glargine 20 units/ (Miscellaneous Medication) 0.2 mls @ 0 mls/hr SC BID [facility] Last Admin: 05/16/18 09:30 Dose: 0.2 mls Dextrose/Water (D5w) 1,000 mls @ 0 mls/hr IV .Q0M PRN PRN Reason: Hypoglycemia Insulin Human Lispro (Humalog) 0 units SC .BEDTIME SLIDING SC PRN PRN Reason: Bedtime Correctional Scale Last Admin: 05/15/18 20:29 Dose: 4 unit Insulin Human Lispro (Humalog) 0 units SC .AGGRESSIVE SLIDING PRN PRN Reason: Aggressive Correctional Scale Last Admin: 05/16/18 09:30 Dose: 9 unit Iron/Minerals/Multivitamins (Theragran M) 1 tab PO DAILY [facility] Last Admin: 05/16/18 09:29 Dose: 1 tab Isosorbide Mononitrate (Imdur Er) 30 mg PO DAILY [facility] Last Admin: 05/16/18 09:29 Dose: 30 mg Metformin HCl (Glucophage) 1,000 mg PO BID-[facility] Nitroglycerin (Nitrostat) 0.4 mg PO Q5MIN PRN PRN Reason: Chest Pain Sodium Chloride (Flush - Normal Saline) 10 ml IVF PRN PRN PRN Reason: Saline Flush Terazosin HCl (Hytrin) 2 mg PO [facility] Last Admin: 05/15/18 20:32 Dose: 2 mg
[2018-05-16] MEDS: metFORMIN 500 MG TAB PO SCH (16:49)
--- NOTE | 2018-05-16 18:37 | PDOC.CTH ---
Cardiology Progress Note - Subjective He is doing better. - Objective Vital Signs Temp Pulse Resp BP BP BP BP 05/16/18 15:59 76 20 05/16/18 15:19 98.3 F 80 18 126/68 05/16/18 11:31 72 20 05/16/18 11:22 97.7 F 81 17 129/61 05/16/18 08:46 149/77 H 141/75 H 141/74 H 05/16/18 08:02 97.8 F 76 20 132/62 Pulse Ox 05/16/18 15:59 05/16/18 15:19 93 L 05/16/18 11:31 05/16/18 11:22 96 05/16/18 08:46 05/16/18 08:02 95 Weight 301 lb 2 oz - Physical Examination General/Neuro: alert & oriented x3, NAD Neck: no JVD present Lungs: CTA, unlabored respirations Heart: RRR Abdomen: NT/ND Extremities: + edema B (Trace) - Telemetry Telemetry Rhythm: NSR - Labs Result Diagrams: 05/15/18 05:54 05/16/18 05:21 Troponin/CKMB Troponin I Less than 0.010 ng/mL (< 0.028) 05/14/18 05:45 - Assessment/Plan 1. Chest pain 2. CAD 3. Acute bronchitis 4. DNT2 5. Non compliance 6. Current smoker PLAN: - Pain likely from pneumonia/bronchitis. - No ACS - Continue cardiac meds - Tobacco cessation counseling performed. - May discharge home at any time form cardiac perspective - Follow up in 1 month after d/c.
[2018-05-16] MEDS: Insulin Glargine 25 UNITS in Pre-Filled Syringe SC SCH (21:39)
[2018-05-16] MEDS: Terazosin HCl 1 MG CAP PO SCH (21:42)
[2018-05-17] MEDS: Acetaminophen 500 MG TAB PO PRN (01:52)
[2018-05-17] MEDS ORDERED: Furosemide 40 MG TAB PO SCH (07:30)
[2018-05-17 07:39] VITALS: BP 134/75; TEMP 98
[2018-05-17] MEDS: Multivitamin W/ Minerals 1 TAB PO SCH (08:47)
[2018-05-17] MEDS: Aspirin 81 mg Enteric Coated Tablet PO SCH (08:47)
[2018-05-17] MEDS: Clopidogrel Bisulfate 75 MG TAB PO SCH (08:47)
[2018-05-17] MEDS: Carvedilol 3.125 MG TAB PO SCH (08:47)
[2018-05-17] MEDS: Insulin Glargine 25 UNITS in Pre-Filled Syringe SC SCH (08:47)
[2018-05-17] MEDS: Fish Oil 1,000 MG CAP PO SCH (08:47)
[2018-05-17] MEDS: metFORMIN 500 MG TAB PO SCH (08:47)
[2018-05-17] MEDS: HumaLOG 300 UNITS/3 ML VIAL SC PRN (08:50)
[2018-05-17] MEDS ORDERED: Cefdinir 300 MG CAP PO SCH (09:00)
--- NOTE | 2018-05-17 10:39 | PQF ---
CLINICAL DOCUMENTATION IMPROVEMENT CLARIFICATION FORM: ICD-10 Updated PLEASE DO AN ADDENDUM TO THE PROGRESS NOTE WITH ANY DOCUMENTATION UPDATES OR ADDITIONS AND CARRY THROUGH TO DC SUMMARY. THANK YOU. DATE: 05/17/18 ATTN: DR. VENEGAS Please exercise your independent, professional judgment in responding to the clarification form. Clinical indicators are provided on the bottom of this form for your review Please check appropriate box(s) to clarify if the following diagnosis has been ruled in or ruled out: "COPD EXACERBATION" [ ] Ruled in diagnosis [ ] Continue to treat [ ] Resolved [x ] Ruled out diagnosis [ ] Cannot rule out diagnosis [ ] Other diagnosis [ ] Unable to determine In addition, please specify: Present on Admission (POA): [ ] Yes [ ] No [ ] Unable to determine For continuity of documentation, please document condition throughout progress notes and discharge summary. Thank You. CLINICAL INDICATORS - SIGNS / SYMPTOMS / LABS ER NOTE: "COPD EXACERBATION" PROGRESS NOTE 05/14 (ALONZO): "PROBABLE BRONCHITIS..." PROGRESS NOTE 05/16 (BJ): "PAIN LIKELY FROM BRONCHITIS/PNEUMONIA" RISKS: H/O COPD WORSENING SHORTNESS OF BREATH OF 2 WEEKS DURATION (H&P) TREATMENT: DUONEBS (ER-PRESENT) PREDNISONE (ER) CARDIAC MONITORING CHEST XRAY (This form is maintained as a part of the permanent medical record) 2014 [employer]. All Rights Reserved MYLES [email or web address] Office: [phone] [facility]
--- NOTE | 2018-05-17 10:43 | PQF ---
CLINICAL DOCUMENTATION IMPROVEMENT CLARIFICATION FORM: ICD-10 Updated PLEASE DO AN ADDENDUM TO THE PROGRESS NOTE WITH ANY DOCUMENTATION UPDATES OR ADDITIONS AND CARRY THROUGH TO DC SUMMARY. THANK YOU. DATE: 05/17/18 ATTN: DR. VENEGAS Please exercise your independent, professional judgment in responding to the clarification form. Clinical indicators are provided on the bottom of this form for your review Please check appropriate box(s) to clarify if the following diagnosis has been ruled in or ruled out: "PNEUMONIA" [ ] Ruled in diagnosis [ ] Continue to treat [ ] Resolved [x ] Ruled out diagnosis [ ] Cannot rule out diagnosis [ ] Other diagnosis [ ] Unable to determine In addition, please specify: Present on Admission (POA): [ ] Yes [ ] No [ ] Unable to determine For continuity of documentation, please document condition throughout progress notes and discharge summary. Thank You. CLINICAL INDICATORS - SIGNS / SYMPTOMS / LABS ER NOTE: "COPD EXACERBATION" PROGRESS NOTE 05/14 (ALONZO): "PROBABLE BRONCHITIS..." PROGRESS NOTE 05/16 (BJ): "PAIN LIKELY FROM BRONCHITIS/PNEUMONIA" RISKS: H/O COPD WORSENING SHORTNESS OF BREATH OF 2 WEEKS DURATION (H&P) TREATMENT: DUONEBS (ER-PRESENT) PREDNISONE (ER) CARDIAC MONITORING CHEST XRAY (This form is maintained as a part of the permanent medical record) [employer] 2015 [employer]. All Rights Reserved MYLES [email or web address] Office: [phone] [facility] CENTERGeovani
--- NOTE | 2018-05-17 16:53 | DIS ---
DATE OF ADMISSION: 05/14/2018 DATE OF DISCHARGE: 05/17/2018 DISCHARGE DISPOSITION: Home. FOLLOWUP: 1. Follow up with [facility] in 1 week. 2. Follow up with Dr. Reyes in 3 to 4 weeks. 3. Basic metabolic profile after 2 weeks is recommended. Primary care physician advised to follow. ALLERGIES: MORPHINE. DISCHARGE MEDICATIONS: 1. Aspirin 81 mg daily. 2. Fish oil daily. 3. Multivitamin one tablet daily. 4. Terazosin 2 mg at bedtime. 5. Albuterol inhaler as needed. 6. Carvedilol 3.125 mg b.i.d. 7. Omnicef 300 mg b.i.d. for next 4 days. 8. Plavix 75 mg daily. 9. Lasix 40 mg daily as needed for volume overload. 10. Glimepiride 4 mg b.i.d. 11. Imdur 60 mg daily. 12. Lisinopril 5 mg daily. 13. Metformin 1000 mg b.i.d. 14. Actos 30 mg daily. The patient was seen and examined on the day of discharge. Denies any new complaints. No chest pain, shortness of breath, or palpitations reported. BRIEF HOSPITAL COURSE: The patient is a 63-year-old male with coronary artery disease, diabetes mellitus type 2, obstructive sleep apnea, hypertension, and dyslipidemia, presented to the emergency room with shortness of breath with some chest discomfort. Please refer to the history and physical for further details. The patient was admitted to the hospital with a diagnosis of shortness of breath, probably secondary to unstable angina. He was started on 1 mg/kg of Lovenox. He was also seen by Cardiology, Dr. Reyes. His blood sugar remained elevated, probably secondary to prednisone, which he received in the emergency room. Echocardiogram was done that showed ejection fraction 60% to 65% with mild mitral regurgitation. His troponin remained negative. Per Cardiology, his symptoms could be secondary to acute bronchitis with mild diastolic heart failure. Please note that the patient is currently out of multiple medications including Imdur. His symptoms have significantly improved after resuming his home medications. He was also provided a refill on Imdur. He was advised to follow up with Cardiology as outpatient. FINAL DIAGNOSES: 1. Shortness of breath, suspected secondary to unstable angina with possible acute bronchitis and acute on chronic diastolic heart failure exacerbation, improved. 2. Coronary artery disease. 3. Hypertension. 4. Diabetes mellitus type 2. 5. Nonalcoholic steatohepatitis. 6. Obstructive sleep apnea with nonfunctioning CPAP machine. 7. Benign prostatic hypertrophy. 8. Morbid obesity with a BMI 47.9. 9. Diverticulosis. 10. Dyslipidemia. 11. Nonobstructing left nephrolithiasis. 12. Degenerative joint disease. 13. Mild tricuspid regurgitation. 14. Hyperkalemia with metabolic acidosis on admission, resolved. 15. Chronic kidney disease stage 2 with mild acute kidney injury. 16. Lactic acidosis, resolved. PLAN: Plan of care was discussed with the patient in detail. He stated understanding. Job ID: [id number]
== END 2018-05-17 10:15 | disposition home or self-care (01) | DRG 291 ==
LOC: ERS 21:55 → OBSVTOIN 05-14 01:00 → ERHOLD 05-14 01:00 → 2NO 05-14 16:07
PROVIDERS: ADMIT Internal Medicine; ATTEND Internal Medicine
DX: I13.0 Hypertensive heart and chronic kidney disease with heart failure and stage 1 through stage 4 chronic kidney disease, or unspecified chronic kidney disease (principal); I50.33 Acute on chronic diastolic (congestive) heart failure; Z68.42 Body mass index [BMI] 45.0-49.9, adult; N17.9 Acute kidney failure, unspecified; E87.2 Acidosis; J20.9 Acute bronchitis, unspecified; I25.110 Atherosclerotic heart disease of native coronary artery with unstable angina pectoris; E78.5 Hyperlipidemia, unspecified; N40.0 Benign prostatic hyperplasia without lower urinary tract symptoms; E66.01 Morbid (severe) obesity due to excess calories; K75.81 Nonalcoholic steatohepatitis (NASH); E11.65 Type 2 diabetes mellitus with hyperglycemia; K57.90 Diverticulosis of intestine, part unspecified, without perforation or abscess without bleeding; G47.33 Obstructive sleep apnea (adult) (pediatric); N20.0 Calculus of kidney; I07.1 Rheumatic tricuspid insufficiency; M19.90 Unspecified osteoarthritis, unspecified site; E87.5 Hyperkalemia; E11.22 Type 2 diabetes mellitus with diabetic chronic kidney disease; N18.2 Chronic kidney disease, stage 2 (mild); F17.210 Nicotine dependence, cigarettes, uncomplicated; Z91.14 Patient's other noncompliance with medication regimen; Z88.5 Allergy status to narcotic agent; Z79.84 Long term (current) use of oral hypoglycemic drugs; Z79.82 Long term (current) use of aspirin; Z79.02 Long term (current) use of antithrombotics/antiplatelets; Z79.899 Other long term (current) drug therapy; Z98.61 Coronary angioplasty status
CPT/HCPCS: 36415; 36416; 71045; 71260; 74177; 80048; 80053; 82010; 82550; 83605; 83690; 83735; 83880; 84484; 85025; 85379; 85610; 85730; 87040; 90471; 90686; 93005; 93306; 94640; 94760; 96361; 96374; 96375; G0008; J0456; J1650; J1885; J2405; J7506; J7620

== ENCOUNTER 2018-06-28 19:20 | Emergency (ER) | payer OTHER ==
[2018-06-28] MEDS ORDERED: Ondansetron PF 4 MG/2 ML Vial ONE (19:36)
[2018-06-28 19:48] LABS: #Lymphocytes 0.9 thou/uL (1.20-3.40); #Monocytes 0.6 thou/uL (0.11-0.59); #Neutrophils 4.9 thou/uL (1.40-6.50); %Basophils 0.2 % (0.0-1.0); %Eosinophils 0.7 % (0.0-10.0); %Neutrophils 76.2 % (42.0-75.0); Mean Corpuscular HGB CONC 33.7 g/dL (32.0-36.0); Mean Corpuscular Hemoglobin 31.3 pg (27.0-31.0); Mean Corpuscular Volume 92.9 fL (78.0-98.0); Mean Platelet Volume 8.8 fL (7.4-10.4); Platelet Count 139 thou/uL (130-400); RBC Distribution Width 12.3 % (11.5-14.5); Red Blood Cell (RBC) Count 4.46 mill/uL (4.70-6.10); White Blood Cell (WBC) Count 6.4 thou/uL (4.8-10.8)
[2018-06-28 20:10] LABS: ALT (SGPT) 92 U/L (8-55); AST (SGOT) 136 U/L (5-34); Albumin 4.1 g/dL (3.4-4.8); Alkaline Phosphatase 62 U/L (40-150); Anion Gap 14 mmol/L (10-20); BUN (Urea Nitrogen) 11 mg/dL (8.4-25.7); Bilirubin, Total 0.7 mg/dL (0.2-1.2); Calc. Creatinine Clearance 0 mL/min (70-130); Calcium 9.9 mg/dL (7.8-10.44); Carbon Dioxide 25 mmol/L (23-31); Chloride 98 mmol/L (98-107); Estimated GFR-MDRD 71; Glucose 172 mg/dL (80-115); Potassium 4.3 mmol/L (3.5-5.1); Protein, Total 7.1 g/dL (5.8-8.1); Sodium 133 mmol/L (136-145)
--- NOTE | 2018-06-28 20:11 | RAD ---
CHEST ONE VIEW: 06/28/18 INDICATION: History of cough. COMPARISON: Prior exam dated 05/13/18. FINDINGS: The lungs are clear. Heart size is normal. There is healed deformity involving the left mid shaft cla vicle. No acute osseous abnormality is evident. IMPRESSION: No acute abnormality. POS: [facility]
--- NOTE | 2018-07-02 17:34 | EKG ---
Test Reason : SOB Blood Pressure : / mmHG Vent. Rate : 106 BPM Atrial Rate : 106 BPM P-R Int : 150 ms QRS Dur : 084 ms QT Int : 320 ms P-R-T Axes : 030 003 072 degrees QTc Int : 425 ms Sinus tachycardia Otherwise normal ECG Confirmed by SENIA RUST, YUSUF Vanessa ([id number]), photography editor HAL MCKEON ([id number]) on 07/02/2018 5:34:15 PM Referred By: Confirmed By:YUSUF CONN MD
== END 2018-06-28 21:21 | disposition home or self-care (01) ==
LOC: ERS 19:20
DX: J10.1 Influenza due to other identified influenza virus with other respiratory manifestations (principal); M19.90 Unspecified osteoarthritis, unspecified site; E11.9 Type 2 diabetes mellitus without complications; I25.10 Atherosclerotic heart disease of native coronary artery without angina pectoris; I11.0 Hypertensive heart disease with heart failure; I50.9 Heart failure, unspecified; G47.30 Sleep apnea, unspecified; Z79.84 Long term (current) use of oral hypoglycemic drugs; Z79.899 Other long term (current) drug therapy; Z79.82 Long term (current) use of aspirin; Z79.51 Long term (current) use of inhaled steroids
CPT/HCPCS: 36415; 71045; 80053; 83605; 85025; 87040; 87804; 93005; 96361; 96374; J2405

== ENCOUNTER 2018-06-29 12:18 | Emergency (ER) | payer OTHER ==
[2018-06-29 12:55] LABS: #Eosinphils 0.1 thou/uL (0.0-0.7); #Lymphocytes 1.2 thou/uL (1.20-3.40); #Monocytes 0.6 thou/uL (0.11-0.59); #Neutrophils 2.8 thou/uL (1.40-6.50); %Basophils 0.7 % (0.0-1.0); %Eosinophils 1.6 % (0.0-10.0); %Lymphocytes 25.8 % (21.0-51.0); %Monocytes 12.2 % (0.0-10.0); %Neutrophils 59.7 % (42.0-75.0); Hemoglobin 14.2 g/dL (14.0-18.0); Mean Corpuscular HGB CONC 32.5 g/dL (32.0-36.0); Mean Corpuscular Hemoglobin 30.7 pg (27.0-31.0); Mean Corpuscular Volume 94.4 fL (78.0-98.0); Mean Platelet Volume 8.7 fL (7.4-10.4); Platelet Count 137 thou/uL (130-400); RBC Distribution Width 12.4 % (11.5-14.5); Red Blood Cell (RBC) Count 4.64 mill/uL (4.70-6.10); White Blood Cell (WBC) Count 4.7 thou/uL (4.8-10.8)
--- NOTE | 2018-06-29 13:08 | RAD ---
PORTABLE UPRIGHT FRONTAL CHEST RADIOGRAPH: Date: 06-29-18 Comparison: 06-28-18 History: Cough. FINDINGS: Heart and mediastinal contours grossly unremarkable. No pneumothorax, pleural fluid, focal consolidat ion or alveolar edema. IMPRESSION: No acute findings. POS: [facility]
[2018-06-29 13:22] LABS: ALT (SGPT) 97 U/L (8-55); AST (SGOT) 116 U/L (5-34); Alkaline Phosphatase 60 U/L (40-150); Anion Gap 14 mmol/L (10-20); BUN (Urea Nitrogen) 14 mg/dL (8.4-25.7); Bilirubin, Total 0.7 mg/dL (0.2-1.2); Calc. Creatinine Clearance 0 mL/min (70-130); Calcium 9.4 mg/dL (7.8-10.44); Carbon Dioxide 24 mmol/L (23-31); Chloride 99 mmol/L (98-107); Estimated GFR-MDRD 74; Glucose 233 mg/dL (80-115); Potassium 4.3 mmol/L (3.5-5.1); Sodium 133 mmol/L (136-145)
[2018-06-29] MEDS ORDERED: Acetaminophen 500 MG TAB ONE (14:09)
[2018-06-29] MEDS ORDERED: Oseltamivir 75 MG CAP PO ONE (15:15)
== END 2018-06-29 15:29 | disposition home or self-care (01) ==
LOC: ERS 12:18
DX: J11.1 Influenza due to unidentified influenza virus with other respiratory manifestations (principal); J45.901 Unspecified asthma with (acute) exacerbation; I25.10 Atherosclerotic heart disease of native coronary artery without angina pectoris; G47.30 Sleep apnea, unspecified; F17.210 Nicotine dependence, cigarettes, uncomplicated; I11.0 Hypertensive heart disease with heart failure; I50.9 Heart failure, unspecified; Z79.899 Other long term (current) drug therapy; Z79.82 Long term (current) use of aspirin; Z79.84 Long term (current) use of oral hypoglycemic drugs; Z79.51 Long term (current) use of inhaled steroids
CPT/HCPCS: 36415; 71045; 80053; 85025; 93005; 94640; 96360; J7620

== ENCOUNTER 2018-07-08 11:35 | Outpatient (CLI) | payer OTHER ==
--- NOTE | 2018-07-08 14:01 | RAD ---
LEFT WRIST 3 VIEWS: HISTORY: Wrist pain. FINDINGS: Moderate arthritic changes of the 1st carpometacarpal joint space are seen. There are also some sood ges of the triscaphe joint. There are no signs of fracture. IMPRESSION: Arthritic changes related to the 1st carpometacarpal joint. POS: [facility]
== END 2018-07-08 11:36 | disposition home or self-care (01) ==
LOC: BICRAD 11:35
PROVIDERS: ATTEND Nurse Practitioner Family
DX: M25.532 Pain in left wrist (principal); M18.12 Unilateral primary osteoarthritis of first carpometacarpal joint, left hand

== ENCOUNTER 2018-09-01 14:22 | Outpatient (CLI) | payer OTHER ==
--- NOTE | 2018-09-01 15:34 | RAD ---
TWO VIEWS CHEST: DATE: 09/01/2018. PROVIDED CLINICAL HISTORY: Dyspnea. FINDINGS: Comparison 01/02/2017. The cardiac and mediastinal silhouette is unchanged in appearance. No focal c onsolidation, pleural fluid, or pneumothorax apparent. Degenerative changes are seen involving the t horacic spine. IMPRESSION: No evidence for an acute cardiopulmonary process. POS: [facility]
== END 2018-09-01 14:23 | disposition home or self-care (01) ==
LOC: BICRAD 14:22
PROVIDERS: ATTEND Internal Medicine Cardiovascular Disease
DX: R06.00 Dyspnea, unspecified (principal)
CPT/HCPCS: 71046

== ENCOUNTER 2018-09-08 12:44 | Outpatient (CLI) | payer OTHER | END 2018-09-08 12:45 | disposition home or self-care (01) | LOC: CP 12:44 | PROVIDERS: ATTEND Internal Medicine Critical Care Medicine | DX: J44.9 Chronic obstructive pulmonary disease, unspecified (principal) | CPT/HCPCS: 94060; 94727; 94729 ==

== ENCOUNTER 2018-09-19 12:57 | Inpatient (IN) | payer OTHER ==
[2018-09-19 13:49] LABS: #Basophils 0.1 thou/uL (0.0-0.2); #Eosinphils 0.2 thou/uL (0.0-0.7); #Lymphocytes 3.8 thou/uL (1.20-3.40); #Monocytes 0.8 thou/uL (0.11-0.59); #Neutrophils 6.6 thou/uL (1.40-6.50); %Basophils 0.6 % (0.0-1.0); %Eosinophils 1.9 % (0.0-10.0); %Lymphocytes 33.1 % (21.0-51.0); %Monocytes 7.3 % (0.0-10.0); %Neutrophils 57.2 % (42.0-75.0); Hemoglobin 13.7 g/dL (14.0-18.0); Mean Corpuscular HGB CONC 34.3 g/dL (32.0-36.0); Mean Corpuscular Hemoglobin 31.1 pg (27.0-31.0); Mean Corpuscular Volume 90.7 fL (78.0-98.0); Mean Platelet Volume 10.2 fL (7.4-10.4); Platelet Count 178 thou/uL (130-400); RBC Distribution Width 12.5 % (11.5-14.5); Red Blood Cell (RBC) Count 4.39 mill/uL (4.70-6.10); White Blood Cell (WBC) Count 11.5 thou/uL (4.8-10.8)
[2018-09-19 13:59] LABS: ALT (SGPT) 34 U/L (8-55); AST (SGOT) 25 U/L (5-34); Albumin 3.9 g/dL (3.4-4.8); Alkaline Phosphatase 57 U/L (40-150); Anion Gap 16 mmol/L (10-20); BUN (Urea Nitrogen) 21 mg/dL (8.4-25.7); Bilirubin, Total 0.4 mg/dL (0.2-1.2); Calc. Creatinine Clearance 0 mL/min (70-130); Calcium 10.1 mg/dL (7.8-10.44); Carbon Dioxide 17 mmol/L (23-31); Chloride 110 mmol/L (98-107); Estimated GFR-MDRD 68; Globulin 3.3 g/dL (2.4-3.5); Glucose 135 mg/dL (80-115); Potassium 4.9 mmol/L (3.5-5.1); Protein, Total 7.2 g/dL (5.8-8.1); Sodium 138 mmol/L (136-145)
--- NOTE | 2018-09-19 14:02 | RAD ---
CHEST 1 VIEW: Date: 09/19/18 HISTORY: Hypotension, dyspnea. Syncopal episode. COMPARISON: 09/01/18. FINDINGS: Heart size is within normal limits. Mild stable vascular congestion. No confluent pneumonia, overt ed vicki, or pleural effusion. IMPRESSION: Stable appearing mild vascular congestion. No new process. Atherosclerosis of aorta with ectasia. POS: [facility]
--- NOTE | 2018-09-19 14:38 | CT ---
CT CERVICAL SPINE WITH CORONAL AND SAGITTAL REFORMATIONS AND NO IV CONTRAST: HISTORY: Syncope, neck pain FINDINGS: Multilevel degenerative changes are present. No fracture, subluxation or facet malalignment is identified. No prevertebral soft tissue swelling is apparent. The visualized lung apices are unremarkable. IMPRESSION: No CT evidence for fracture or traumatic subluxation.
--- NOTE | 2018-09-19 14:47 | CT ---
CT BRAIN WITHOUT CONTRAST: Date: 09/19/18 HISTORY: Syncope. COMPARISON: 12/17/15. FINDINGS: No evidence of infarct, hemorrhage, midline shift, or abnormal extra-axial fluid collections are seen . The ventricular size is appropriate and the basilar cisterns are patent. The bony calvarium is inta ct. There is mucosal disease in the paranasal sinuses. IMPRESSION: No CT evidence of acute intracranial process. POS: [facility]
[2018-09-19] MEDS ORDERED: Ondansetron PF 4 MG/2 ML Vial ONE (15:16)
[2018-09-19 17:38] LABS: Troponin I Less than 0.010 ng/mL (< 0.028)
[2018-09-19] MEDS ORDERED: Ondansetron PF 4 MG/2 ML Vial IVP PRN (18:46)
[2018-09-19] MEDS ORDERED: Acetaminophen 325 MG TAB PO PRN (18:46)
[2018-09-19] MEDS ORDERED: Ondansetron ODT 4 MG TAB SL PRN (18:46)
[2018-09-19 20:23] LABS: Troponin I Less than 0.010 ng/mL (< 0.028)
[2018-09-19] MEDS ORDERED: Dextrose 50% Abboject 50 ML SYRINGE SLOW IVP PRN (22:47)
[2018-09-19] MEDS ORDERED: Dextrose 5% in Water 1,000 ML IV PRN (22:47)
[2018-09-19] MEDS ORDERED: HumaLOG 300 UNITS/3 ML VIAL SC PRN (22:47)
[2018-09-19 22:53] VITALS: BMI 42.8
--- NOTE | 2018-09-19 23:49 | HP ---
PRIMARY CARE PHYSICIAN: . TIME OF EVALUATION: 8 p.m. CHIEF COMPLAINT: Syncope. HISTORY OF PRESENT ILLNESS: This is a 63-year-old male patient with past medical history of diabetes type 2, fatty liver, hypertension, osteoarthritis, congestive heart failure, sleep apnea, came to the hospital after having an episode of syncope. The patient reported that he was at home and he checked his blood pressure, it was in the 80s. He remembered he was walking in the driveway and the next thing he remembers he woke up he was on the floor. The patient is also having dyspnea when lying in flat position. No fever. REVIEW OF SYSTEMS: CONSTITUTIONAL: No fever or chills. The patient reported generalized weakness. RESPIRATORY: The patient has shortness of breath with exertion and when lying in the flat position. No cough. No sputum production. CARDIOVASCULAR: No chest pain or palpitation. GASTROINTESTINAL: No nausea. No vomiting. The patient did report some diarrhea. No abdominal pain. BILLIARD PLAYER: No dizziness, headache, or feeling lightheaded. GENITOURINARY: No burning on urination. EXTREMITIES: No leg swelling. All other systems were reviewed and negative except for the findings mentioned above. PAST MEDICAL HISTORY: COPD, coronary artery disease, diabetes type 2, fatty liver, osteoarthritis, congestive heart failure, sleep apnea. PAST SURGICAL HISTORY: Cyst removal, screw placed in right knee, cardiac stent placed. PSYCH HISTORY: No previous psych history. SOCIAL HISTORY: Abuses marijuana. Former tobacco user, quit approximately 6 months ago. Lives in home with family. The patient drinks socially rarely. KNOWN ALLERGIES: Morphine. REPORTED MEDICATIONS: 1. Ramipril. 2. Atorvastatin. 3. Glimepiride. 4. Aspirin. 5. . 6. Metformin. 7. Imdur. 8. Plavix. 9. Coreg. 10. Lisinopril. 11. Prednisone. 12. Albuterol. PHYSICAL EXAMINATION: VITAL SIGNS: On presentation, blood pressure 99/74 with heart rate 101, respiratory rate was 20, temperature 98.8, pain 0/10, oxygen saturation 97% on room air. GENERAL APPEARANCE: The patient is obese, alert, oriented, not in acute distress. HEENT: Eyes, normal conjunctivae. Moist oral mucosa. Anicteric. No JVD. RESPIRATORY: Bilateral air entry. No rales. No wheezing. Symmetric expansion. CARDIOVASCULAR: Normal rate. Regular rhythm. No murmurs. No gallop. Bilateral leg edema. ABDOMEN: Soft. Normal bowel sounds. The patient is obese. MUSCULOSKELETAL: Baseline range of motion and strength. No tenderness. SKIN: Warm, intact. No pallor. No rash. No redness. Peripheral pulses are present. Capillary refill seems to be intact. NEUROLOGIC: No evidence of any new focal weakness. Baseline speech. Cranial nerves seems to be intact. PSYCHIATRIC: The patient is in good mood. No anxiety. Optimal judgment. IMAGING STUDIES: EKG was reviewed and the patient has normal sinus rhythm with some sinus arrhythmia at the rate of 87, IN 146, QRS 80, QT corrected 121. LABORATORY DATA: Reviewed. The patient has a white count of 11.5, hemoglobin 13.7, MCV 90.7, platelet count 178. Chemistry; sodium 138, potassium 4.9, chloride 110, carbon dioxide 17, anion gap 16, BUN 21, creatinine 1.10, GFR 68, glucose 135. Lactic acid 2.8 and repeat one 2.0. Calcium 10.1. LFTs were negative. Troponin was negative x2. Beta natriuretic peptide was negative. Brain CT was done. No CTA evidence for intracranial process. CT cervical spine, no CTA evidence for fracture or traumatic subluxation. Chest x-ray, stable appearance of mild vascular congestion, no new process. Atherosclerosis of the aorta with ectasia. ASSESSMENT AND PLAN: The patient will be placed in the hospital with following medical problems: 1. Syncope, unclear etiology. We will do echo. We will monitor on tele. We will do carotid Doppler. We will follow. We will consult Cardiology. Sees Dr. Reyes who has been following him as outpatient and has offered him a stent placement in the past if the symptoms were persistent as per the patient's report. 2. Lactic acidosis on presentation. Initial lactic acid was 2.8 and repeat one 2.0. 3. Uncontrolled diabetes with blood sugar in the range of 135. We will reconcile home medications once updated, we will place the patient on sliding scale. 4. Morbidly obese. The patient is to lose weight. 5. History of chronic obstructive pulmonary disease. This is chronic, seems to be stable, reconcile home medications. 6. Coronary artery disease. We will reconcile home medications. Troponins are negative. No areas of acute ischemic events in the chest x-ray. 7. Reported history of congestive heart failure. The last echo records from 05/15, this year. The patient has EF 60 to 65. Reconcile home medications. No mention of diastolic dysfunction. We will monitor. 8. Deep venous thrombosis prophylaxis. 9. Controlled hypertension. The patient has blood pressure in the lower side, could be related to dehydration and possible diarrhea. We will monitor, we will not treat aggressively to borderline blood pressure. 10. Sleep apnea. Continue the patient's home CPAP. Job ID: [id number]
[2018-09-20 05:49] LABS: #Basophils 0.1 thou/uL (0.0-0.2); #Eosinphils 0.3 thou/uL (0.0-0.7); #Monocytes 0.8 thou/uL (0.11-0.59); #Neutrophils 5.3 thou/uL (1.40-6.50); %Basophils 0.7 % (0.0-1.0); %Eosinophils 2.9 % (0.0-10.0); %Monocytes 7.9 % (0.0-10.0); %Neutrophils 56.5 % (42.0-75.0); Hemoglobin 12.4 g/dL (14.0-18.0); Mean Corpuscular HGB CONC 34.1 g/dL (32.0-36.0); Mean Corpuscular Hemoglobin 31.5 pg (27.0-31.0); Mean Corpuscular Volume 92.4 fL (78.0-98.0); Platelet Count 161 thou/uL (130-400); RBC Distribution Width 12.5 % (11.5-14.5); Red Blood Cell (RBC) Count 3.94 mill/uL (4.70-6.10); White Blood Cell (WBC) Count 9.4 thou/uL (4.8-10.8)
[2018-09-20 06:07] LABS: Anion Gap 10 mmol/L (10-20); BUN (Urea Nitrogen) 17 mg/dL (8.4-25.7); Calc. Creatinine Clearance 170 mL/min (70-130); Calcium 9.4 mg/dL (7.8-10.44); Carbon Dioxide 23 mmol/L (23-31); Chloride 107 mmol/L (98-107); Estimated GFR-MDRD 81; Glucose 132 mg/dL (80-115); Potassium 4.2 mmol/L (3.5-5.1); Sodium 136 mmol/L (136-145)
--- NOTE | 2018-09-20 08:29 | ULT ---
CAROTID ULTRASOUND: HISTORY: Syncope. COMPARISON: None. TECHNIQUE: Horton-scale, color-flow, Doppler imaging, and spectral wave-form analysis was performed of the carotid and vertebral arteries. FINDINGS: RIGHT CAROTID: There are scattered noncalcified plaques throughout the carotid artery. The peak sys tolic velocity of the common carotid artery is 126.3 cm per second. The peak systolic velocity of th e internal carotid artery is 97.0 cm per second. The systolic ICA/CCA ratio is 0.77. LEFT CAROTID: There is calcified and noncalcified plaque in the left carotid artery. The peak systo lic velocity of the common carotid artery is 102.2 cm per second. The peak systolic velocity of the internal carotid artery is 100.3 cm per second. The systolic ICA/CCA ratio is 0.98. There is antegrade flow to both vertebral arteries. IMPRESSION: No sonographic evidence of hemodynamically significant stenosis. POS: OFF
[2018-09-20] MEDS: Enoxaparin Sodium 40 MG/0.4 ML SYRINGE SC SCH (08:51)
--- NOTE | 2018-09-20 09:29 | PDOC.PN ---
- Subjective Encounter Start Date: 09/20/18 Encounter Start Time: 11:10 Subjective: Patient with significant MATOS from his CHF at baseline that limits him -: to working no more than 3-4 hours per day. Yesterday felt unusually bad, -: had BP in 80s, then passed out walking into the ER. Feels ok today. - Objective Resuscitation Status - Order Detail: 09/19/18 20:51 Resuscitation Status Routine Resuscitation Status: FULL: Full Resuscitation MAR Reviewed: Yes Vital Signs & Weight: Vital Signs (12 hours) Temp Pulse Resp BP BP Pulse Ox 09/20/18 07:48 97.9 F 65 14 120/62 97 09/20/18 04:00 97.8 F 69 20 100/56 L 98 09/20/18 00:00 121/68 110/62 Weight Weight 324 lb 9.6 oz I&O: 09/19/18 09/20/18 09/21/18 06:59 06:59 06:59 Intake Total 300 Output Total 950 Balance -650 Result Diagrams: 09/20/18 05:19 09/20/18 05:19 Additional Labs: Accuchecks 09/20/18 09/19/18 09/19/18 06:09 23:34 18:41 POC Glucose 147 H 124 H 201 H 09/19/18 09/19/18 17:13 13:21 POC Glucose 104 141 H Phys Exam - Physical Examination Constitutional: NAD HEENT: moist MMs Respiratory: no wheezing, no rales, no rhonchi, clear to auscultation bilateral Cardiovascular: RRR, no significant murmur Gastrointestinal: soft, positive bowel sounds Musculoskeletal: no edema Neurological: non-focal, moves all 4 limbs Psychiatric: normal affect, A&O x 3 Dx/Plan (1) Syncope and collapse Code(s): R55 - SYNCOPE AND COLLAPSE Status: Acute Comment: had hypotension previous to episode, now resolved, concern for possible cardiac eitiology, cardiology consulted (2) Lactic acidosis Code(s): E87.2 - ACIDOSIS Status: Resolved (3) Chronic diastolic congestive heart failure Code(s): I50.32 - CHRONIC DIASTOLIC (CONGESTIVE) HEART FAILURE Status: Chronic (4) STEPHANIE (obstructive sleep apnea) Code(s): G47.33 - OBSTRUCTIVE SLEEP APNEA (ADULT) (PEDIATRIC) Status: Chronic (5) Type 2 diabetes mellitus Status: Chronic Comment: Continue Pioglitazone and Glimeperide, hold Metformin in case of cath, ISS (6) BPH (benign prostatic hyperplasia) Code(s): N40.0 - BENIGN PROSTATIC HYPERPLASIA WITHOUT LOWER URINRY TRACT SYMP Status: Chronic (7) CAD (coronary artery disease) Code(s): I25.10 - ATHSCL HEART DISEASE OF [place] CORONARY ARTERY W/O ANG PCTRS Status: Chronic Comment: h/o Stents in heart. (8) HLD (hyperlipidemia) Code(s): E78.5 - HYPERLIPIDEMIA, UNSPECIFIED Status: Chronic Comment: no longer have statin on home med list (9) HTN (hypertension) Code(s): I10 - ESSENTIAL (PRIMARY) HYPERTENSION Status: Chronic (10) Nonalcoholic steatohepatitis (CROSS) Code(s): K75.81 - NONALCOHOLIC STEATOHEPATITIS (CROSS) Status: Chronic - Plan cont current plan of care, PT/OT, DVT proph w/lovenox * . - Discharge Day Encounter end time: 11:20
[2018-09-20] MEDS: Carvedilol 3.125 MG TAB PO SCH ×2 (10:32→19:38)
[2018-09-20] MEDS: Finasteride 5 MG TAB PO SCH (10:32)
[2018-09-20] MEDS: Tamsulosin HCl 0.4 MG CAP PO SCH (10:32)
[2018-09-20] MEDS: Lisinopril 5 MG TAB PO SCH (10:32)
[2018-09-20] MEDS: Pioglitazone HCl 15 MG TAB PO SCH (10:33)
[2018-09-20] MEDS ORDERED: Sodium Chloride 0.9% 500 ML IV SCH (17:45)
[2018-09-20] MEDS: Glimepiride 4 MG TAB PO SCH (18:06)
--- NOTE | 2018-09-20 18:34 | CON ---
DATE OF CONSULTATION: 09/20/2018 REASON FOR CONSULTATION: Syncope. HISTORY OF PRESENT ILLNESS: Mr. Blum is a very pleasant 63-year-old white gentleman, who comes to the hospital for syncope. He states that for the last 3 weeks, he has been noticing diarrhea about 3 or 4 days out of the week, and he has been taking his Lasix scheduled, which he was advised to take just as needed, but he has been taking it scheduled, and when he was seen in the office about a month ago, he actually was complaining of angina, so we had his Imdur increased from 60 to 120 mg a day. He states that he has felt lightheaded since then. Every time he stands up he gets lightheaded. One day he stood up, he could not fell backward, did not pass out, checked his blood pressure, it was in the 80s over 40s, so he just took it as easy the rest of the day. Yesterday, he was at home, and he would stand up, got lightheaded and fell back. Because the last time he called 911, he got a bill for 3500 dollars for an ambulance ride. He decided to drive himself to the hospital. He managed to park in the ER and he started walking into the ER. He actually collapsed and passed out before he could make it to the door. ER personnel came out, put him in a bed, and brought him in for further evaluation. He has been admitted. He received a very small amount of fluids because of concerns of his heart failure. He states he does not really feel any better than he did when he came originally. PAST MEDICAL HISTORY: 1. Ischemic cardiomyopathy with last EF at 45% to 50% on echo just a few months ago. 2. Type 2 diabetes. 3. CAD, non-revascularizable. 4. Type 2 diabetes. 5. History of fatty liver. 6. Osteoarthritis. 7. Sleep apnea. 8. COPD. PAST SURGICAL HISTORY: 1. Cyst removal. 2. Right knee screw in place. 3. Stenting in the past. SOCIAL HISTORY: Uses marijuana on a regular basis. Quit smoking about 6 months ago. Drinks socially. ALLERGIES: MORPHINE. OUTPATIENT MEDICATIONS: Include, 1. Carvedilol 3.125 mg p.o. b.i.d. 2. Finasteride 5 mg a day. 3. Tamsulosin. 4. Ranolazine 500 mg b.i.d. 5. Glimepiride 4 mg b.i.d. 6. Actos 30 mg a day. 7. Aspirin 81 a day. 8. Lisinopril 5 mg a day. 9. Isosorbide mononitrate 120 mg a day. 10. Metformin 1000 mg p.o. b.i.d. 11. Lasix 40 mg a day. 12. Plavix 75 mg a day. 13. Albuterol inhaler. 14. Atorvastatin. REVIEW OF SYSTEMS: A 12-point review of systems was done and was all negative unless stated in the history of present illness. PHYSICAL EXAMINATION: VITAL SIGNS: Temperature 98.2, pulse 96, respiratory rate 14, saturations 96% on 2 L, and blood pressure went from 145/66 lying flat to 121/75 standing. GENERAL: Awake, alert, and oriented x3. No distress. HEENT: Normocephalic and atraumatic. NECK: Supple. LUNGS: Clear. CARDIOVASCULAR: S1 and S2. No S3 or S4. There is a grade 2/6 systolic murmur in the left sternal border. ABDOMEN: Soft. Positive bowel sounds. EXTREMITIES: Trace edema. SKIN: Warm and dry. LABORATORY DATA: Laboratory work was reviewed. CBC is unremarkable except for hemoglobin of 13.7. Chemistry is unremarkable. Troponin is undetectable x3. BNP was 30.7. DIAGNOSTIC DATA: EKG was reviewed. Echocardiogram was reviewed done today, showed an EF of 45% to 50% with apical hypokinesis. There are a grade 1 to 3 diastolic dysfunction, mild MR, mild left atrial enlargement. Carotid Doppler showed no evidence of flow-limiting disease. CT of the brain and cervical spine was unremarkable. ASSESSMENT AND PLAN: 1. Syncope. 2. Orthostatic hypotension. 3. Ischemic cardiomyopathy, ejection fraction at 45% to 50%. PLAN: 1. Most likely he is orthostatic from his daily Lasix use and increase in recent medications as well as the diarrhea that he has been having in the last few weeks. We will give a bolus of 500 mL normal saline. We will watch him overnight. If he is doing better tomorrow, he will be able to be discharged home. We will modify his medications. We will back on his Imdur down to 30 mg a day, and we will hold the Lasix indefinitely, and he will take it only as needed. 2. Otherwise, no other new recommendations at this time. Thank you for letting us to participate in the care of your patient. Job ID: [id number]
[2018-09-21] MEDS: Lisinopril 5 MG TAB PO SCH (08:22)
[2018-09-21] MEDS: Pioglitazone HCl 15 MG TAB PO SCH (08:22)
[2018-09-21] MEDS: Finasteride 5 MG TAB PO SCH (08:22)
[2018-09-21] MEDS: Tamsulosin HCl 0.4 MG CAP PO SCH (08:23)
[2018-09-21] MEDS: Enoxaparin Sodium 40 MG/0.4 ML SYRINGE SC SCH (08:23)
[2018-09-21] MEDS: Glimepiride 4 MG TAB PO SCH (08:23)
[2018-09-21] MEDS: Carvedilol 3.125 MG TAB PO SCH (08:23)
[2018-09-21] MEDS ORDERED: Aspirin 81 mg Enteric Coated Tablet PO SCH (09:00)
--- NOTE | 2018-09-21 09:06 | PDOC.PN ---
- Subjective Encounter Start Date: 09/21/18 Encounter Start Time: 09:40 Subjective: Patient feeling much better after fluids yesterday. Ambulating -: well without dizziness or weakness. Ready to go home. - Objective Resuscitation Status - Order Detail: 09/19/18 20:51 Resuscitation Status Routine Resuscitation Status: FULL: Full Resuscitation MAR Reviewed: Yes Vital Signs & Weight: Vital Signs (12 hours) Temp Pulse Resp BP BP Pulse Ox 09/21/18 08:22 61 09/21/18 03:05 98.9 F 61 16 122/73 94 L 09/20/18 23:00 91 122/75 Weight Weight 315 lb 3.2 oz I&O: 09/20/18 09/21/18 09/22/18 06:59 06:59 06:59 Intake Total 300 300 Output Total 950 500 Balance -650 -200 Result Diagrams: 09/20/18 05:19 09/20/18 05:19 Additional Labs: Accuchecks 09/21/18 09/20/18 09/20/18 06:09 21:14 17:06 POC Glucose 185 H 205 H 299 H 09/20/18 11:07 POC Glucose 195 H Radiology Reviewed by me: Yes (ECHO with EF 45-50%, grade 1/3 diastolic dysfunction) Phys Exam - Physical Examination Constitutional: NAD HEENT: moist MMs Respiratory: no wheezing, no rales, no rhonchi Cardiovascular: RRR, no significant murmur Gastrointestinal: soft, positive bowel sounds Neurological: non-focal, moves all 4 limbs Psychiatric: normal affect, A&O x 3 Dx/Plan (1) Syncope and collapse Code(s): R55 - SYNCOPE AND COLLAPSE Status: Acute Comment: had hypotension previous to episode, now resolved, likely secondary to orthostatic hypotension from overdiuresis and increased angina meds, Dr. Rey has given small fluid bolus, held diuretics, and decreased angina meds (2) Orthostatic hypotension Code(s): I95.1 - ORTHOSTATIC HYPOTENSION Status: Acute Comment: fluid bolus , decrease meds, likely due to overdiuresis, resolved this AM (3) Lactic acidosis Code(s): E87.2 - ACIDOSIS Status: Resolved (4) Chronic diastolic congestive heart failure Code(s): I50.32 - CHRONIC DIASTOLIC (CONGESTIVE) HEART FAILURE Status: Chronic Comment: EF 45-50%, grade 1/3 diastolic dysfunction (5) STEPHANIE (obstructive sleep apnea) Code(s): G47.33 - OBSTRUCTIVE SLEEP APNEA (ADULT) (PEDIATRIC) Status: Chronic (6) Type 2 diabetes mellitus Status: Chronic Comment: Continue Pioglitazone and Glimeperide, hold Metformin in case of cath, ISS (7) BPH (benign prostatic hyperplasia) Code(s): N40.0 - BENIGN PROSTATIC HYPERPLASIA WITHOUT LOWER URINRY TRACT SYMP Status: Chronic (8) CAD (coronary artery disease) Code(s): I25.10 - ATHSCL HEART DISEASE OF [place] CORONARY ARTERY W/O ANG PCTRS Status: Chronic Comment: h/o Stents in heart. (9) HLD (hyperlipidemia) Code(s): E78.5 - HYPERLIPIDEMIA, UNSPECIFIED Status: Chronic Comment: no longer have statin on home med list (10) HTN (hypertension) Code(s): I10 - ESSENTIAL (PRIMARY) HYPERTENSION Status: Chronic (11) Nonalcoholic steatohepatitis (CROSS) Code(s): K75.81 - NONALCOHOLIC STEATOHEPATITIS (CROSS) Status: Chronic - Plan cont current plan of care, PT/OT, DVT proph w/lovenox d/c home -: no more Lasix unless retaining a lot of fluid * . - Discharge Day Encounter end time: 09:55
[2018-09-21 10:17] VITALS: BP 138/67; TEMP 98.2
--- NOTE | 2018-09-22 05:08 | DIS ---
DATE OF ADMISSION: 09/19/2018 DATE OF DISCHARGE: 09/21/2018 PRIMARY CARE PHYSICIAN: Star Escobedo MD REASON FOR ADMISSION: Syncope. DISCHARGE DIAGNOSES: 1. Syncope secondary to orthostatic hypotension, resolved. 2. Lactic acidosis, resolved. 3. Chronic diastolic congestive heart failure, actually over diuresed. 4. Obstructive sleep apnea. 5. Type 2 diabetes mellitus, on oral hypoglycemics. 6. Benign prostatic hyperplasia. 7. Coronary artery disease. 8. Hyperlipidemia. 9. Hypertension. 10. Nonalcoholic steatohepatitis. PROCEDURES: 1. CT scan of the brain showing no evidence of acute intracranial process. 2. CT cervical spine showing no evidence for fracture or traumatic subluxation. 3. Ultrasound of bilateral carotid arteries showing no evidence for hemodynamically significant stenosis. There were some scattered plaques throughout bilaterally. CONSULTATIONS: Cardiology, Dr. Reyes. SUMMARY OF HOSPITAL COURSE: This is a 63-year-old male with past medical history of diabetes type 2 and diastolic congestive heart failure, was previously on Lasix daily. This was decreased to just p.r.n., though he has been taking it somewhat regularly. Recently, he was also having some angina and so his Imdur was increased to 60 mg daily. The patient has been feeling kind of bad ever since and has had dizziness and lightheadedness with standing, had some presyncopal episodes previously with blood pressures in the 80 systolic. On the day of admission, the patient felt very bad. His blood pressure was in the 80 systolic, so he drove himself to the hospital and then passed out while he was walking into front doors. He came too quickly. He was admitted to the hospital. Blood pressures did show some orthostasis on standing. Dr. Reyes evaluated him, determined that he was volume depleted, and gave him small fluid bolus, which resolved the patient's symptoms. He is feeling back to normal today. He has no dizziness or lightheadedness and is able to ambulate normally and his orthostatic blood pressure drops have resolved on recheck. Dr. Reyes has also recommended decreasing his Imdur back to 30 mg daily and has cleared him for discharge. DISCHARGE MANAGEMENT: Location: Discharged home. Followup: Follow up with Dr. Escobedo in the next 2-[address] Reyes as directed. Activity: As tolerated. Diet: Healthy heart, low-sodium diet. MEDICATIONS: 1. Isosorbide mononitrate 30 mg daily, 30 tablets dispensed. 2. Aspirin 81 mg daily. 3. Carvedilol 3.125 mg twice a day. 4. Finasteride 5 mg daily. 5. Glimepiride 4 mg twice a day. 6. Lisinopril 5 mg daily. 7. Pioglitazone 30 mg daily. 8. Ranolazine extended release 500 mg twice a day. 9. Tamsulosin 0.4 mg daily. 10. Metformin 1000 mg twice a day. 11. The patient is to hold his Lasix for now. Job ID: [id number]
== END 2018-09-21 11:47 | disposition home or self-care (01) | DRG 312 ==
LOC: ERS 12:57 → 2NO 16:52
PROVIDERS: ADMIT Emergency Medicine; ATTEND Emergency Medicine
DX: I95.2 Hypotension due to drugs (principal); E87.2 Acidosis; I50.32 Chronic diastolic (congestive) heart failure; Z68.41 Body mass index [BMI] 40.0-44.9, adult; E11.9 Type 2 diabetes mellitus without complications; M19.90 Unspecified osteoarthritis, unspecified site; J44.9 Chronic obstructive pulmonary disease, unspecified; I25.10 Atherosclerotic heart disease of native coronary artery without angina pectoris; E66.01 Morbid (severe) obesity due to excess calories; E86.0 Dehydration; G47.33 Obstructive sleep apnea (adult) (pediatric); I11.0 Hypertensive heart disease with heart failure; N40.0 Benign prostatic hyperplasia without lower urinary tract symptoms; E78.5 Hyperlipidemia, unspecified; K75.81 Nonalcoholic steatohepatitis (NASH); T50.1X5A Adverse effect of loop [high-ceiling] diuretics, initial encounter; I25.5 Ischemic cardiomyopathy; Z98.61 Coronary angioplasty status; Z87.891 Personal history of nicotine dependence
CPT/HCPCS: 36415; 36416; 70450; 71045; 72125; 80048; 80053; 83605; 83880; 84484; 85025; 93005; 93306; 93880; 96361; 96374; J1650; J2405

== ENCOUNTER 2018-11-04 14:55 | Emergency (ER) | payer OTHER ==
--- NOTE | 2018-11-04 15:34 | RAD ---
XR Knee Lt 4 View STANDARD HISTORY: Injury, left knee pain FINDINGS: No fracture or dislocation is identified. Mild-moderate degenerative changes are present.
[2018-11-04] MEDS ORDERED: Ketorolac Tromethamine 30 MG/ML VIAL ONE (16:10)
== END 2018-11-04 16:15 | disposition home or self-care (01) ==
LOC: ERS 14:55
DX: M25.562 Pain in left knee (principal); E11.9 Type 2 diabetes mellitus without complications; J44.9 Chronic obstructive pulmonary disease, unspecified; I25.10 Atherosclerotic heart disease of native coronary artery without angina pectoris; I11.0 Hypertensive heart disease with heart failure; I50.9 Heart failure, unspecified; Z87.891 Personal history of nicotine dependence
CPT/HCPCS: 96372; J1885

== ENCOUNTER 2018-12-23 12:20 | Emergency (ER) | payer OTHER ==
--- NOTE | 2018-12-23 13:08 | RAD ---
XR Chest 1 View Portable HISTORY: Dyspnea COMPARISON: 10/06/2018 FINDINGS: The heart size is normal. The lungs are well expanded without focal areas of consolidation, pneumothorax or pleural effusions. IMPRESSION: No radiographic evidence of acute cardiopulmonary process.
[2018-12-23 13:19] LABS: #Eosinphils 0.1 thou/uL (0.0-0.7); #Lymphocytes 2.6 thou/uL (1.20-3.40); #Monocytes 0.6 thou/uL (0.11-0.59); #Neutrophils 4.7 thou/uL (1.40-6.50); %Basophils 0.6 % (0.0-1.0); %Eosinophils 1.5 % (0.0-10.0); %Lymphocytes 32.6 % (21.0-51.0); %Neutrophils 58.3 % (42.0-75.0); Hemoglobin 12.7 g/dL (14.0-18.0); Mean Corpuscular HGB CONC 34.1 g/dL (32.0-36.0); Mean Corpuscular Hemoglobin 31.1 pg (27.0-31.0); Mean Corpuscular Volume 91.3 fL (78.0-98.0); Mean Platelet Volume 9.5 fL (7.4-10.4); Platelet Count 154 thou/uL (130-400); RBC Distribution Width 12.6 % (11.5-14.5); White Blood Cell (WBC) Count 8.1 thou/uL (4.8-10.8)
[2018-12-23 13:40] LABS: ALT (SGPT) 37 U/L (8-55); AST (SGOT) 22 U/L (5-34); Albumin 3.8 g/dL (3.4-4.8); Alkaline Phosphatase 64 U/L (40-150); Anion Gap 14 mmol/L (10-20); BUN (Urea Nitrogen) 16 mg/dL (8.4-25.7); Bilirubin, Total 0.6 mg/dL (0.2-1.2); Calc. Creatinine Clearance 0 mL/min (70-130); Calcium 9.7 mg/dL (7.8-10.44); Carbon Dioxide 21 mmol/L (23-31); Chloride 104 mmol/L (98-107); Estimated GFR-MDRD 71; Globulin 2.6 g/dL (2.4-3.5); Glucose 319 mg/dL (80-115); Potassium 4.6 mmol/L (3.5-5.1); Protein, Total 6.4 g/dL (5.8-8.1); Sodium 134 mmol/L (136-145)
== END 2018-12-23 14:45 | disposition home or self-care (01) ==
LOC: ERS 12:20
DX: E11.65 Type 2 diabetes mellitus with hyperglycemia (principal); I11.0 Hypertensive heart disease with heart failure; I50.9 Heart failure, unspecified; M19.90 Unspecified osteoarthritis, unspecified site; G47.00 Insomnia, unspecified; Z87.891 Personal history of nicotine dependence; Z95.5 Presence of coronary angioplasty implant and graft
CPT/HCPCS: 36416; 71045; 80053; 82010; 83880; 84484; 85025; 93005

== ENCOUNTER 2019-04-27 17:16 | Observation (INO) | payer OTHER ==
[2019-04-27 17:54] LABS: #Basophils 0.1 thou/uL (0.0-0.2); #Eosinphils 0.1 thou/uL (0.0-0.7); #Monocytes 0.8 thou/uL (0.11-0.59); #Neutrophils 5.5 thou/uL (1.40-6.50); %Basophils 0.7 % (0.0-1.0); %Eosinophils 0.9 % (0.0-10.0); %Lymphocytes 31.5 % (21.0-51.0); %Monocytes 8.4 % (0.0-10.0); %Neutrophils 58.5 % (42.0-75.0); Hemoglobin 12.6 g/dL (14.0-18.0); Mean Corpuscular HGB CONC 35.2 g/dL (32.0-36.0); Mean Corpuscular Hemoglobin 32.1 pg (27.0-31.0); Mean Corpuscular Volume 91.2 fL (78.0-98.0); Mean Platelet Volume 8.7 fL (7.4-10.4); Platelet Count 165 thou/uL (130-400); RBC Distribution Width 12.9 % (11.5-14.5); Red Blood Cell (RBC) Count 3.93 mill/uL (4.70-6.10); White Blood Cell (WBC) Count 9.5 thou/uL (4.8-10.8)
--- NOTE | 2019-04-27 18:00 | RAD ---
Portable chest: HISTORY: Difficulty breathing. Shortness of breath. COMPARISON: 12/23/2018 FINDINGS:Mild cardiomegaly is stable. No significant vascular congestion. No infiltrate or significan t effusion. No significant interval change. IMPRESSION: No acute finding
[2019-04-27 18:08] LABS: ALT (SGPT) 30 U/L (8-55); AST (SGOT) 20 U/L (5-34); Albumin 3.7 g/dL (3.4-4.8); Alkaline Phosphatase 55 U/L (40-110); Anion Gap 13 mmol/L (10-20); BUN (Urea Nitrogen) 21 mg/dL (8.4-25.7); Bilirubin, Total 0.4 mg/dL (0.2-1.2); Calc. Creatinine Clearance 0 mL/min (70-130); Calcium 9.6 mg/dL (7.8-10.44); Carbon Dioxide 20 mmol/L (23-31); Chloride 108 mmol/L (98-107); Estimated GFR-MDRD 69; Globulin 2.5 g/dL (2.4-3.5); Glucose 146 mg/dL (80-115); Potassium 4.3 mmol/L (3.5-5.1); Protein, Total 6.2 g/dL (5.8-8.1); Sodium 137 mmol/L (136-145)
[2019-04-27] MEDS ORDERED: cefTRIAXone\\ROCEPHIN 1 GM in Sodium Chloride 0.9% 100 ML IVPB SCH (20:00)
[2019-04-27] MEDS ORDERED: HumaLOG 300 UNITS/3 ML VIAL SC PRN (20:01)
[2019-04-27] MEDS ORDERED: Dextrose 50% Abboject 50 ML SYRINGE SLOW IVP PRN (20:01)
[2019-04-27] MEDS ORDERED: Dextrose 5% in Water 1,000 ML IV PRN (20:01)
[2019-04-27] MEDS ORDERED: guaiFENesin 200 MG TAB PO PRN (20:04)
[2019-04-27] MEDS ORDERED: Benzonatate 100 MG CAP PO PRN (20:04)
--- NOTE | 2019-04-27 20:06 | PDOC.HHP ---
Hospitalist HPI - History of Present Illness SOB and chest pain History of Present Illness: Mr. Blum is presenting with sudden onset shortness of breath and chest pain that started while he was working at approximately 3pm. 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 Patient states the pain was on the left side of his chest, describes it as a pressure that was a 5/10 in severity. He states what bothered him most was the difficulty breathing which lasted 2-3 hours. He had an appointment to see his Criminal Justice Social Worker at 4pm and waited to be evaluated there. He was prompted to come to the ED. Patient has a known history of COPD and states he ran out of his inhalers recently. He also reports having family members he lives with who are on antibiotics for acute bronchitis. He began to feel unwell since 2 weeks ago with generalized aches, a persistent cough with green sputum and feeling feverish at times. No hemoptysis, no lower leg swelling/pain. No lightheadedness or dizziness. At present his shortness of breath as resolved. ED Course: In the ED he had an EKG done showing NSR with no ST changes or T wave abnormalities. He was noted to have premature atrial complexes, HR 76. He had a CXR done which was unremarkable. WCC is 9.5, Hgb 12.6, Platelets 165. Na+ 137, K+ 4.3. BUN 21, Creat 1.08, GFR 69. Glucose 146. LFTS normal. Patient referred for CP rule out. Hospitalist ROS - Review of Systems Constitutional: reports: malaise. denies: fever, chills, sweats, weakness, other Eyes: denies: pain, vision change, conjunctivae inflammation, eyelid inflammation, redness, other ENT: denies: ear pain, ear discharge, nose pain, nose discharge, nose congestion , mouth pain, mouth swelling, throat pain, throat swelling, other Respiratory: reports: cough, shortness of breath, sputum (green). denies: dry, hemoptysis, SOB with excertion, pleuritic pain, wheezing, other Cardiovascular: reports: chest pain (left sided). denies: palpitations, orthopnea, paroxysmal noc. dyspnea, edema, light headedness, other Gastrointestinal: reports: other (decreased appetite for the last couple of weeks). denies: nausea, vomiting, abdominal pain, diarrhea, constipation, melena, hematochezia Genitourinary: reports: frequency. denies: dysuria, incontinence, hematuria, retention, other Musculoskeletal: denies: neck pain, shoulder pain, arm pain, back pain, hand pain, leg pain, foot pain, other Skin: denies: rash, lesions, pillo, bruising, other Neurological: denies: weakness, numbness, incoordination, change in speech, confusion, seizures, other Hospitalist History - Past Medical History Source: patient Cardiac: reports: CAD, CHF, HTN Pulmonary: reports: COPD Gastrointestinal: reports: Other (hepatic steatosis) Musculoskeletal: reports: Osteoarthritis Endocrine: reports: Diabetes - Past Surgical History Past Surgical History: reports: Other (right knee surgery cyst removal Cardiac stent) - Social History Smoking Status: Former smoker Alcohol: reports: None Drugs: reports: none Living Situation: With Family Activity level: independent ambulation - Exam General Appearance: NAD, awake alert General - other findings: appears generally unwell Eye: negative: PERRL, anicteric sclera, scleral icterus ENT: dry oral mucosa. negative: normocephalic atraumatic, no oropharyngeal lesions, moist mucosa Neck: supple, symmetric, no lymphadenopathy Heart: RRR Respiratory: CTAB, no wheezes, no rales, no ronchi, normal chest expansion, no tachypnea Gastrointestinal: non-tender, non-distended, normal bowel sounds, no guarding, no rigidity Gastrointestinal - other findings: obese Extremities - other findings: trace edema Skin: no lesions, no rashes Neurological: cranial nerve grossly intact, no weakness, no focal deficits Musculoskeletal: normal tone, normal strength Psychiatric: normal affect, normal behavior, A&O x 3 Hospitalist Results - Labs Result Diagrams: 04/27/19 17:45 04/27/19 17:45 Lab results: WBC 9.5 thou/uL (4.8-10.8) 04/27/19 17:45 Hgb 12.6 g/dL (14.0-18.0) L 04/27/19 17:45 Hct 35.9 % (42.0-52.0) L 04/27/19 17:45 MCV 91.2 fL (78.0-98.0) 04/27/19 17:45 Plt Count 165 thou/uL (130-400) 04/27/19 17:45 Neutrophils % 58.5 % (42.0-75.0) 04/27/19 17:45 Sodium 137 mmol/L (136-145) 04/27/19 17:45 Potassium 4.3 mmol/L (3.5-5.1) 04/27/19 17:45 Chloride 108 mmol/L (98-107) H 04/27/19 17:45 Carbon Dioxide 20 mmol/L (23-31) L 04/27/19 17:45 BUN 21 mg/dL (8.4-25.7) 04/27/19 17:45 Creatinine 1.08 mg/dL (0.7-1.3) 04/27/19 17:45 Glucose 146 mg/dL (80-115) H 04/27/19 17:45 Calcium 9.6 mg/dL (7.8-10.44) 04/27/19 17:45 Total Bilirubin 0.4 mg/dL (0.2-1.2) 04/27/19 17:45 AST 20 U/L (5-34) 04/27/19 17:45 ALT 30 U/L (8-55) 04/27/19 17:45 Alkaline Phosphatase 55 U/L (40-110) 04/27/19 17:45 Troponin I Less than 0.010 ng/mL (< 0.028) 04/27/19 17:45 Serum Total Protein 6.2 g/dL (5.8-8.1) 04/27/19 17:45 Albumin 3.7 g/dL (3.4-4.8) 04/27/19 17:45 - Radiology Interpretation Chest x-ray Status: report reviewed by va Hospitalist H&P A/P - Problem (1) Cough productive of purulent sputum Code(s): R05 - COUGH Status: Acute (2) Shortness of breath Code(s): R06.02 - SHORTNESS OF BREATH Status: Acute (3) Chest pain Code(s): R07.9 - CHEST PAIN, UNSPECIFIED Status: Acute (4) Urinary frequency Code(s): R35.0 - FREQUENCY OF MICTURITION Status: Acute (5) CAD (coronary artery disease) Code(s): I25.10 - ATHSCL HEART DISEASE OF [place] CORONARY ARTERY W/O ANG PCTRS Status: Chronic (6) Chronic diastolic congestive heart failure Code(s): I50.32 - CHRONIC DIASTOLIC (CONGESTIVE) HEART FAILURE Status: Chronic (7) DM2 (diabetes mellitus, type 2) Status: Chronic Qualifiers: Chronic kidney disease stage: stage 2 (mild) (8) H/O heart artery stent Code(s): Z95.5 - PRESENCE OF CORONARY ANGIOPLASTY IMPLANT AND GRAFT Status: Chronic (9) HLD (hyperlipidemia) Code(s): E78.5 - HYPERLIPIDEMIA, UNSPECIFIED Status: Chronic (10) HTN (hypertension) Code(s): I10 - ESSENTIAL (PRIMARY) HYPERTENSION Status: Chronic (11) Morbid obesity with BMI of 40.0-44.9, adult Code(s): E66.01 - MORBID (SEVERE) OBESITY DUE TO EXCESS CALORIES; Z68.41 - BODY MASS INDEX (BMI) 40.0-44.9, ADULT Status: Chronic (12) STEPHANIE (obstructive sleep apnea) Code(s): G47.33 - OBSTRUCTIVE SLEEP APNEA (ADULT) (PEDIATRIC) Status: Chronic (13) BPH (benign prostatic hyperplasia) Code(s): N40.0 - BENIGN PROSTATIC HYPERPLASIA WITHOUT LOWER URINRY TRACT SYMP Status: Chronic - Plan Plan: CP and SOB have resolved. Trend troponins. BNP, Mg and TSH added on. Lipid panel with AM labs. Start IV Abx, infective COPD exacerbation vs. pnuemonia. CT Chest. Duonebs. Sputum culture. Tessalon and guiafenesin for cough/congestion. Lactic acid and procalcitonin added on. Recent echo in September 2018. EF 45-50%. Monitor BP and blood glucose. ISS initiated. UA/UCx. Resume home meds once verified. GI Prophylaxis with famotidine. DVT prophylaxis with mechanical SCDs. CODE STATUS FULL. Surrogate decision maker is his Berenice Nino.
[2019-04-27 20:35] LABS: Lactic Acid 1.2 mmol/L (0.5-2.2)
--- NOTE | 2019-04-27 20:38 | CT ---
CT CHEST WITHOUT CONTRAST: 04/27/19 INDICATIONS: Cough, shortness of breath. FINDINGS: The lungs are well aerated. There is no evidence of infiltrate or effusion. There is a 1.0 cm calcifi ed nodule in the anterior left upper lobe. No soft tissue mass or nodule. Mediastinum is unremarkabl e. Images through the upper abdomen are unremarkable. Degenerative changes in the spine. IMPRESSION: No acute lung process. POS: SHANTHI
[2019-04-27] MEDS ORDERED: Famotidine/PF 20 mg/2ml Vial SLOW IVP SCH (21:00)
[2019-04-27] MEDS ORDERED: Azithromycin 500 MG in Sodium Chloride 0.9% 250 ML 250 ML IVPB SCH (21:00)
[2019-04-27] MEDS ORDERED: Furosemide 40 MG TAB PO PRN (22:25)
[2019-04-27 22:40] VITALS: BMI 41.8
[2019-04-27] MEDS ORDERED: Finasteride 5 MG TAB PO SCH (23:00)
[2019-04-27] MEDS ORDERED: Tamsulosin HCl 0.4 MG CAP PO SCH (23:00)
[2019-04-27] MEDS ORDERED: Acetaminophen/Codeine 30-300mg Tablet PO SCH (23:00)
[2019-04-27] MEDS ORDERED: Famotidine 20 MG TAB PO SCH (23:00)
[2019-04-27] MEDS ORDERED: Carvedilol 3.125 MG TAB PO SCH (23:00)
[2019-04-27] MEDS ORDERED: Atorvastatin Calcium 40 MG TAB PO SCH (23:00)
[2019-04-27 23:24] LABS: Bacteria/HPF None Seen HPF (None Seen); Bilirubin Negative (Negative); Blood, Urine Negative (Negative); Clarity Clear (Clear); Glucose, Urine (Dipstick) Greater than 1000 mg/dL (Negative); Leukocyte Negative Leu/uL (Negative); Nitrite Negative (Negative); Protein, Urine (Dipstick) Negative (Neg-Trace); RBC/HPF 0-3 HPF (0-3); Squamous Epithelial None Seen HPF (0-3); Urobilinogen Normal mg/dL (Less than 2); WBC/HPF 0-3 HPF (0-3)
[2019-04-27 23:25] LABS: Urine Culture Reflex No No
[2019-04-27 23:30] LABS: Troponin I 0.015 ng/mL (< 0.028)
[2019-04-28 05:46] LABS: #Basophils 0.1 thou/uL (0.0-0.2); #Eosinphils 0.2 thou/uL (0.0-0.7); #Monocytes 0.7 thou/uL (0.11-0.59); #Neutrophils 3.8 thou/uL (1.40-6.50); %Basophils 0.7 % (0.0-1.0); %Eosinophils 2.6 % (0.0-10.0); %Monocytes 8.6 % (0.0-10.0); Hemoglobin 11.5 g/dL (14.0-18.0); Mean Corpuscular Hemoglobin 31.2 pg (27.0-31.0); Mean Corpuscular Volume 91.8 fL (78.0-98.0); Mean Platelet Volume 9.6 fL (7.4-10.4); Platelet Count 141 thou/uL (130-400); RBC Distribution Width 13.1 % (11.5-14.5); Red Blood Cell (RBC) Count 3.69 mill/uL (4.70-6.10); White Blood Cell (WBC) Count 7.8 thou/uL (4.8-10.8)
[2019-04-28 05:59] LABS: Anion Gap 12 mmol/L (10-20); BUN (Urea Nitrogen) 19 mg/dL (8.4-25.7); Calc. Creatinine Clearance 177 mL/min (70-130); Calcium 9.3 mg/dL (7.8-10.44); Carbon Dioxide 22 mmol/L (23-31); Chloride 110 mmol/L (98-107); Cholesterol 125 mg/dl (< 200 Desired); Estimated GFR-MDRD 88; Glucose 112 mg/dL (80-115); HDL Cholesterol 25 mg/dL (>60 Neg Risk); Potassium 4.7 mmol/L (3.5-5.1); Sodium 139 mmol/L (136-145)
[2019-04-28 06:32] LABS: Triglycerides 179 mg/dL (Less than 150)
[2019-04-28 06:39] LABS: LDL Cholesterol, Calculated 64 mg/dL
[2019-04-28] MEDS: Famotidine 20 MG TAB PO SCH ×2 (08:09→21:36)
[2019-04-28] MEDS: Carvedilol 3.125 MG TAB PO SCH ×2 (08:09→16:03)
[2019-04-28] MEDS: Lisinopril 5 MG TAB PO SCH (08:09)
[2019-04-28] MEDS: Aspirin 325 mg Enteric Coated Tablet PO SCH (08:09)
[2019-04-28] MEDS ORDERED: FLU VACC QS2019-20(6MOS UP)/PF 60 MCG/0.5 ML SYRINGE IM ONE (09:00)
[2019-04-28] MEDS: Mometasone/Formoterol 120 PUFF INHALER INH SCH ×2 (09:28→18:49)
--- NOTE | 2019-04-28 11:57 | PRG ---
DATE OF SERVICE: 04/28/2019 SUBJECTIVE: The patient is seen and examined at the bedside. He feels significantly better. His chest pain completely resolved and he is not short of breath anymore. OBJECTIVE: VITAL SIGNS: Blood pressure is 120/55, pulse is 76, respirations 20, and O2 saturation is 96% on room air. HEENT: His head is atraumatic and normocephalic. Eyes, PERRLA. Sclerae are nonicteric. Oral mucosa is slightly dry. NECK: Supple. LUNGS: Somewhat emphysematous with few rales at both bases. HEART: S1, S2 normal. No S3. No S4. ABDOMEN: Obese, soft, nontender. EXTREMITIES: No clubbing, cyanosis, or edema. NEUROLOGIC: He follows my commands. He moves his all 4 extremities. There are no sensory or motor deficits. LABORATORY DATA: White count of 7.8, hemoglobin 11.5, hematocrit 33.9, platelet count is 141. Sodium of 139, potassium 4.7, chloride 110, CO2 of 22, BUN 19, creatinine 0.88. Glycemia is ranging from 152 to 187. Calcium is 9.3. Triglycerides 179, LDL 125, HDL is 25, LDL is 64, and total cholesterol is 125. Microbiology, nasopharyngeal swab negative for viral infection. Sputum respiratory culture shows that the specimen was saliva. IMPRESSION: 1. Chest pain which sounds like he has recurrent angina with negative troponins, normal EKG. The patient is supposed to be seen by mother repairer, Dr. Reyes, who saw him a couple of years ago for the same problem and apparently the patient has a lesion raised on his diagnostic workup, which is not amenable for any intervention. 2. Shortness of breath is most likely related to his chronic obstructive pulmonary disease. I do not think he has exacerbation of chronic obstructive pulmonary disease. I am going to stop his antibiotics and use p.r.n. nebulizers. 3. Coronary artery disease. 4. Chronic diastolic congestive heart failure. 5. Diabetes mellitus. 6. Hypertension. 7. Hyperlipidemia. 8. Morbid obesity. 9. Obstructive sleep apnea. PLAN: His chest pain and shortness of breath resolved. His troponins within normal limits. Cardiology will most likely clear him for discharge today. If that is the case, he will be discharged and follow up with the primary doctor will be recommended in a week. Job ID: [id number]
[2019-04-28] MEDS: Acetaminophen 500 MG TAB PO PRN (12:43)
--- NOTE | 2019-04-28 15:45 | CON ---
DATE OF CONSULTATION: 04/28/2019 REASON FOR CONSULTATION: Chest pain, shortness of breath. PRIMARY REAL ESTATE LEGAL SECRETARY: Petros Reyes MD. HISTORY OF PRESENT ILLNESS: Mr. Blum is a pleasant 64-year-old white gentleman, who comes to the hospital for shortness of breath and chest pain. He has a history of coronary artery disease. He was cathed back in 2017 and he was found to have ostial diagonal branches disease that was treated medically as these are very small arteries. We have been up titrating his antianginal since EF is about 45% to 50 %. He only has mild disease on the LAD and RCA. Currently, he is pain free. 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 He has history of COPD and has ran out of all the inhalers. He also states that he used to be weighing himself every day and would take an extra Lasix every time he would gain weight and recently his scale ran out of battery and has not been able to do this. He gave himself a Lasix before coming in and already peed and felt much better and his breathing is back to normal. PAST MEDICAL HISTORY: 1. Coronary artery disease. 2. History of ischemic cardiomyopathy, EF at 45% to 50%. 3. Hypertension. 4. Type 2 diabetes. 5. Fatty liver. 6. Osteoarthritis. 7. Sleep apnea. 8. COPD. PAST SURGICAL HISTORY: 1. Cyst removal. 2. Right knee screw in place. 3. Stents in the past. SOCIAL HISTORY: Quit smoking about a year ago. Social alcohol use. Continues to use marijuana. ALLERGIES: MORPHINE. OUTPATIENT MEDICATIONS: Include: 1. Actos 30 mg a day. 2. NovoLog 70/30, 55 units b.i.d. 3. Breo Ellipta. 4. Lisinopril 5 mg a day. 5. Lipitor 40 mg at bedtime. 6. Ranolazine 500 mg b.i.d. 7. Tamsulosin 0.4 mg at bedtime. 8. Furosemide 40 mg a day. 9. Finasteride 5 mg at bedtime. 10. Carvedilol 3.125 mg b.i.d. 11. Aspirin 325 a day. 12. Metformin 1000 mg b.i.d. 13. Glimepiride 4 mg b.i.d. 14. Jardiance 25 mg a day. 15. Tylenol No. 3. REVIEW OF SYSTEMS: Twelve-point review of systems was done and was all negative unless stated in the history of present illness. PHYSICAL EXAMINATION: VITAL SIGNS: Temperature 97.8, pulse 75, respiratory rate 16, saturating 96% on room air, blood pressure 100/64. GENERAL: Awake, alert, and oriented x3. No distress. HEENT: Normocephalic, atraumatic. NECK: Supple. LUNGS: Not clear, reduced breath sounds bilaterally. CARDIOVASCULAR: S1 and S2. No S3 or S4. No murmurs. ABDOMEN: Soft. Positive bowel sounds. SKIN: Warm and dry. LABORATORY DATA: Laboratory work was reviewed. CBC; white count of 9, hemoglobin 12, hematocrit 35, platelet count of 165. Chemistries were reviewed, unremarkable. Troponin is negative x3. Triglycerides 179, cholesterol total 125, LDL of 64, HDL of 25. UA unremarkable except for sugar in the urine. ASSESSMENT: 1. Chest pain and shortness of breath. 2. Chronic obstructive pulmonary disease. 3. Coronary artery disease. PLAN: 1. We will increase his Ranexa to 1000 mg b.i.d. 2. We will repeat an echocardiogram. If his EF is reduced, then we will plan on repeating a heart catheterization. If his LV function remains the same, he may be discharged home. 3. 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 Agree with assessment that his shortness of breath is partially related to his COPD. Thank you for letting us to participate in the care of your patient. We will follow. Job ID: [id number] [facility]
[2019-04-28] MEDS: HumaLOG 300 UNITS/3 ML VIAL SC PRN (16:03)
[2019-04-28] MEDS ORDERED: Finasteride 5 MG TAB PO SCH (21:00)
[2019-04-28] MEDS ORDERED: Atorvastatin Calcium 40 MG TAB PO SCH (21:00)
[2019-04-28] MEDS ORDERED: Tamsulosin HCl 0.4 MG CAP PO SCH (21:00)
[2019-04-28] MEDS ORDERED: Acetaminophen/Codeine 30-300mg Tablet PO SCH (21:00)
[2019-04-29] MEDS ORDERED: cefTRIAXone\\ROCEPHIN 1 GM in Sodium Chloride 0.9% 100 ML IVPB SCH (03:00)
[2019-04-29] MEDS ORDERED: Azithromycin 500 MG in Sodium Chloride 0.9% 250 ML 250 ML IVPB SCH (04:00)
[2019-04-29] MEDS: Mometasone/Formoterol 120 PUFF INHALER INH SCH (06:56)
[2019-04-29] MEDS ORDERED: predniSONE 20 MG TAB PO SCH (08:00)
[2019-04-29] MEDS ORDERED: Azithromycin 250 MG TAB PO SCH (09:00)
[2019-04-29] MEDS: Aspirin 325 mg Enteric Coated Tablet PO SCH (09:08)
[2019-04-29] MEDS: Lisinopril 5 MG TAB PO SCH (09:08)
[2019-04-29] MEDS: Carvedilol 3.125 MG TAB PO SCH (09:08)
[2019-04-29] MEDS: Famotidine 20 MG TAB PO SCH (09:09)
[2019-04-29] MEDS: Acetaminophen 500 MG TAB PO PRN (09:16)
[2019-04-29] MEDS: HumaLOG 300 UNITS/3 ML VIAL SC PRN (11:56)
--- NOTE | 2019-04-29 12:05 | DIS ---
DATE OF ADMISSION: 04/27/2019 DATE OF DISCHARGE: 04/29/2019 FINAL DIAGNOSES: 1. Chest pain. 2. Chronic obstructive pulmonary disease, mild exacerbation. 3. Coronary artery disease, chronic. 4. Diabetes mellitus, type 2. 5. Hypertension. 6. Chronic diastolic congestive heart failure. 7. Hyperlipidemia. 8. Morbid obesity. 9. Obstructive sleep apnea. CONSULTANTS: Dr. Petros Reyes, Cardiology Service. HOSPITAL COURSE: The patient is a 64-year-old male, who was admitted to the hospital with sudden onset of shortness of breath and chest pain, which started while he was working. He has a history of COPD and apparently, he did not have inhalers. He had some persistent cough with green sputum and feeling feverish at times for approximately 2 weeks prior to this hospitalization. He had also some generalized aches. There was no hemoptysis. No lower leg swelling. No pain. No lightheadedness or dizziness. At the time of admission, his shortness of breath almost resolved. In the emergency room, his electrocardiogram showed normal sinus rhythm with no ST-T wave changes. He had some premature atrial complexes with heart rate of 76. Chest x-ray was unremarkable. White count was 9.5, hemoglobin 12.6. Chemistry came back within normal limits. He was admitted to the hospital for further evaluation of his chest pain and management of his shortness of breath. The patient was seen by it project lead, Dr. Reyes, who recommended echocardiogram, which basically was done and came back with very similar results or even LVEF was estimated at slightly higher rate at 50% to 55%. According to the previous evaluation, he has some lesions in the areas of his coronary artery system, which are not amenable for any intervention. Drive Man recommended to continue his Ranexa and apparently, he ran out of his current supply, so he is giving a prescription for Ranexa. Also, his shortness of breath improved. This was felt to be mild exacerbation of COPD. He was given one dose of steroids along with antibiotic and DuoNeb. He is doing well. He is discharged home with recommendation to stay on 2000-calories ADA diet. Activities as tolerated. DISCHARGE MEDICATIONS: 1. He is going to take azithromycin 250 mg once a day p.o. for the next few days. 2. He will continue his DuoNeb. 3. He will continue his carvedilol 3.125 twice a day. 4. Atorvastatin 40 mg at bedtime. 5. Aspirin 325 mg once a day. 6. Pioglitazone 30 mg once a day. 7. Insulin 70/30 of 55 units twice a day. 8. Breo Ellipta one puff daily. 9. Lisinopril 5 mg daily. 10. Flomax 0.4 mg at bedtime. 11. Furosemide 40 mg p.r.n. as needed. 12. Proscar 5 mg at bedtime. 13. Metformin 1000 mg twice a day. 14. Amaryl 4 mg twice a day. 15. Jardiance 25 mg once a day. 16. Tylenol No. 3 two tablets p.o. b.i.d. p.r.n. as needed. FOLLOWUP: He is going to follow up with his primary care physician in 1 week and with his bond underwriter for diabetic checkup. Job ID: [id number]
[2019-04-29 12:14] VITALS: BP 128/65; TEMP 98.6
== END 2019-04-29 12:39 | disposition home or self-care (01) ==
LOC: ERS 17:16 → 2SW 19:59
PROVIDERS: ADMIT Internal Medicine; ATTEND Internal Medicine
DX: J44.1 Chronic obstructive pulmonary disease with (acute) exacerbation (principal); R07.9 Chest pain, unspecified; I25.10 Atherosclerotic heart disease of native coronary artery without angina pectoris; I13.0 Hypertensive heart and chronic kidney disease with heart failure and stage 1 through stage 4 chronic kidney disease, or unspecified chronic kidney disease; E11.22 Type 2 diabetes mellitus with diabetic chronic kidney disease; N18.2 Chronic kidney disease, stage 2 (mild); I50.32 Chronic diastolic (congestive) heart failure; E78.5 Hyperlipidemia, unspecified; M19.90 Unspecified osteoarthritis, unspecified site; K76.0 Fatty (change of) liver, not elsewhere classified; G47.33 Obstructive sleep apnea (adult) (pediatric); I25.5 Ischemic cardiomyopathy; N40.0 Benign prostatic hyperplasia without lower urinary tract symptoms; E66.01 Morbid (severe) obesity due to excess calories; Z68.41 Body mass index [BMI] 40.0-44.9, adult; Z87.891 Personal history of nicotine dependence; Z79.4 Long term (current) use of insulin; Z79.82 Long term (current) use of aspirin; Z79.899 Other long term (current) drug therapy; Z88.5 Allergy status to narcotic agent; Z95.5 Presence of coronary angioplasty implant and graft
CPT/HCPCS: 36415; 36416; 71045; 71250; 80048; 80053; 80061; 81001; 83605; 83735; 83880; 84145; 84443; 84484; 85025; 87070; 87205; 87633; 90471; 90686; 93005; 93306; 94640; 94664; 96365; 96367; G0008; G0378; J0456; J0696; J3490; J7050; J7512; J7620

== ENCOUNTER 2019-09-25 12:41 | Inpatient (IN) | payer OTHER ==
[~2019-09-25 12:41] MED LIST changes: -ISOVUE-370 76%-LOCM 1 ML ONE; +Iopamidol-370 76% 500 ML 1 ML ONE
[2019-09-25] MEDS ORDERED: Promethazine HCl 25 MG/ML VIAL ONE (13:34)
[2019-09-25 13:54] LABS: #Basophils 0.1 thou/uL (0.0-0.2); #Eosinphils 0.2 thou/uL (0.0-0.7); #Lymphocytes 3.4 thou/uL (1.20-3.40); #Monocytes 0.8 thou/uL (0.11-0.59); %Basophils 0.5 % (0.0-1.0); %Eosinophils 1.9 % (0.0-10.0); %Lymphocytes 27.1 % (21.0-51.0); %Monocytes 6.5 % (0.0-10.0); Hemoglobin 13.7 g/dL (14.0-18.0); Mean Corpuscular HGB CONC 33.7 g/dL (32.0-36.0); Mean Corpuscular Hemoglobin 32.1 pg (27.0-31.0); Mean Platelet Volume 9.6 fL (7.4-10.4); Platelet Count 183 thou/uL (130-400); RBC Distribution Width 12.8 % (11.5-14.5); Red Blood Cell (RBC) Count 4.29 mill/uL (4.70-6.10); White Blood Cell (WBC) Count 12.4 thou/uL (4.8-10.8)
--- NOTE | 2019-09-25 13:59 | RAD ---
PORTABLE CHEST: HISTORY: Weakness. FINDINGS: Lungs appear clear of infiltrate. No evidence of vascular congestion. Heart size is mildly prominen t but stable from prior exam. IMPRESSION: No acute lung process. POS: [facility]
[2019-09-25] MEDS ORDERED: Piperacillin/Tazobactam 4.5 GM VIAL ONE (14:17)
[2019-09-25 14:20] LABS: ALT (SGPT) 37 U/L (8-55); AST (SGOT) 31 U/L (5-34); Albumin 3.7 g/dL (3.4-4.8); Alkaline Phosphatase 71 U/L (40-110); Anion Gap 15 mmol/L (10-20); BUN (Urea Nitrogen) 17 mg/dL (8.4-25.7); Bilirubin, Total 0.5 mg/dL (0.2-1.2); CK (CPK) 68 U/L (30-200); Calc. Creatinine Clearance 0 mL/min (70-130); Calcium 9.2 mg/dL (7.8-10.44); Carbon Dioxide 15 mmol/L (23-31); Chloride 107 mmol/L (98-107); Estimated GFR-MDRD 72; Globulin 3.2 g/dL (2.4-3.5); Glucose 222 mg/dL (80-115); Lipase 83 U/L (8-78); Magnesium 1.7 mg/dL (1.6-2.6); Potassium 5.2 mmol/L (3.5-5.1); Protein, Total 6.9 g/dL (5.8-8.1); Sodium 132 mmol/L (136-145)
--- NOTE | 2019-09-25 15:04 | CT ---
CT ABDOMEN AND PELVIS WITH IV CONTRAST 09/25/2019 CLINICAL INFORMATION: Nausea, vomiting, and diarrhea. COMPARISON: 05/13/2018 Technique: Multiple contiguous axial CT images are obtained through the abdomen and pelvis with IV contrast. Cor onal reformatted images are provided. FINDINGS: Lower Chest: Minimal linear atelectasis versus scarring is seen in the subpleural location right lung base. Bases are otherwise clear. Vessels: Minimal vascular calcifications are seen in the abdominal aorta and involving the iliac alaina esther. A retroaortic left renal vein is present. Abdomen: Portal vein:Patent Gallbladder: Within normal limits for CT imaging. Liver: Diminished attenuation relative to the spleen suggesting fatty infiltration. Spleen: within normal limits. Pancreas: within normal limits. Adrenals: within normal limits. Kidneys: Nonobstructing inferior pole left renal calculus is again seen. Kidneys otherwise demonstrat e a normal CT appearance bilaterally. Bowel: Loops of small bowel are normal in caliber. Colonic diverticula are seen involving the descend ing and sigmoid colon. Appendix: The appendix is visualized and normal in caliber. Peritoneum: No ascites or free air; no fluid collection. Mesentery and Retroperitoneum: No enlarged mesenteric or retroperitoneal lymph nodes. Abdominal Wall: Fat-containing paraumbilical hernia is present and stable. Pelvis: Reproductive Organs: No pelvic masses. Pelvis within normal limits. Bladder: within normal limits. Bones: Multilevel degenerative changes are seen in the spine. IMPRESSION: 1. No acute findings in the abdomen or pelvis. 2. Nonobstructing left renal calculus. 3. Colonic diverticulosis. 4. Periumbilical fat-containing hernia. 5. Hepatic steatosis.
[2019-09-25 17:51] VITALS: BMI 41.9
[2019-09-25] MEDS ORDERED: Ondansetron PF 4 MG/2 ML Vial IVP PRN (18:03)
[2019-09-25] MEDS ORDERED: Acetaminophen 325 MG TAB PO PRN (18:03)
[2019-09-25] MEDS: Sodium Chloride 0.9% 1,000 ML IV SCH (18:04)
[2019-09-25 18:25] LABS: Lactic Acid 1.5 mmol/L (0.5-2.2)
[2019-09-25] MEDS: Clotrimazole 1 % Cream 30 GM TUBE TOP SCH (21:01)
--- NOTE | 2019-09-25 21:30 | PDOC.HHP ---
Hospitalist HPI - History of Present Illness diarrhea History of Present Illness: 64yo M w/ MHx of T2DM, CAD, CHF (mixed), presents with diarrhea. Had multiple watery episodes over the past 48 hours that started suddenly and are associated with mild nausea but no vomiting. Of note, his son, with whom the patient lives , has been sick for the past couple of weeks with phariygitis and nasal congestion. Son was tested for COVID (no clear indication) and results pending tomorrow on encounter, in bed, comfortable, and also endorses burning sensatio in penis when urinates. Denies fever, chills, night sweats, shortness of breath, cough, sputum production, abdominal pain, hematochezia, melena. ED Course: In the ED, found to be hypotensive, tachycardic . responded to fluids and admitted to medical floor Hospitalist ROS - Review of Systems All other systems reviewed; all pertinent +/- noted in HPI/Subj - Medication Medications: Active Medications Generic Name Dose Route Start Last Admin Trade Name Freq PRN Reason Stop Dose Admin Clotrimazole 0 gm 09/25/19 21:00 09/25/19 21:01 Lotrimin 1% Cream TOP 1 applic BID RADHA Administration Sodium Chloride 1,000 mls @ 100 mls/hr 09/25/19 17:30 09/25/19 18:04 Normal Saline 0.9% IV 1,000 mls .Q10H RADHA Administration Hospitalist History - Past Medical History Source: patient, old records Cardiac: reports: CAD, CHF, HTN Musculoskeletal: reports: Osteoarthritis Endocrine: reports: Diabetes - Past Surgical History Past Surgical History: reports: no pertinent history, Other (right knee surgery cyst removal Cardiac stent) - Family History Family History: reports: diabetes mellitus, hypertension - Social History Smoking Status: Former smoker Tobacco Type: cigarettes Alcohol: reports: Occassional Drugs: reports: none Living Situation: With Family Activity level: independent ambulation - Exam General Appearance: NAD, awake alert Heart: RRR, no murmur, no gallops, no rubs Respiratory: CTAB, no wheezes, no rales, no ronchi Gastrointestinal: soft, non-tender, non-distended, normal bowel sounds Gastrointestinal - other findings: no hyperactive sounds, no tenderness Extremities: 1+ LE edema Skin - other findings: erythema and tenderness on penile shaft Psychiatric: normal affect, normal behavior, A&O x 3 Hospitalist Results - Labs Result Diagrams: 09/25/19 13:37 09/25/19 13:37 Lab results: WBC 12.4 thou/uL (4.8-10.8) H 09/25/19 13:37 Hgb 13.7 g/dL (14.0-18.0) L 09/25/19 13:37 Hct 40.7 % (42.0-52.0) L 09/25/19 13:37 MCV 95.0 fL (78.0-98.0) 09/25/19 13:37 Plt Count 183 thou/uL (130-400) 09/25/19 13:37 Neutrophils % 64.0 % (42.0-75.0) 09/25/19 13:37 Sodium 132 mmol/L (136-145) L 09/25/19 13:37 Potassium 5.2 mmol/L (3.5-5.1) H 09/25/19 13:37 Chloride 107 mmol/L (98-107) 09/25/19 13:37 Carbon Dioxide 15 mmol/L (23-31) L 09/25/19 13:37 BUN 17 mg/dL (8.4-25.7) 09/25/19 13:37 Creatinine 1.04 mg/dL (0.7-1.3) 09/25/19 13:37 Glucose 222 mg/dL (80-115) H 09/25/19 13:37 Lactic Acid 1.5 mmol/L (0.5-2.2) 09/25/19 17:58 Calcium 9.2 mg/dL (7.8-10.44) 09/25/19 13:37 Total Bilirubin 0.5 mg/dL (0.2-1.2) 09/25/19 13:37 AST 31 U/L (5-34) 09/25/19 13:37 ALT 37 U/L (8-55) 09/25/19 13:37 Alkaline Phosphatase 71 U/L (40-110) 09/25/19 13:37 Creatine Kinase 68 U/L (30-200) 09/25/19 13:37 Troponin I Less than 0.010 ng/mL (< 0.028) 09/25/19 13:37 B-Natriuretic Peptide Less than 10.0 pg/mL (0-100) 09/25/19 13:36 Serum Total Protein 6.9 g/dL (5.8-8.1) 09/25/19 13:37 Albumin 3.7 g/dL (3.4-4.8) 09/25/19 13:37 Lipase 83 U/L (8-78) H 09/25/19 13:37 - EKG Interpretation EKG: sinus tachycardia with no signs of ischemia Hospitalist H&P A/P - Problem (1) Acute diarrhea Code(s): R19.7 - DIARRHEA, UNSPECIFIED Status: Acute (2) Balanitis Code(s): N48.1 - BALANITIS Status: Acute (3) Nonalcoholic steatohepatitis (CROSS) Code(s): K75.81 - NONALCOHOLIC STEATOHEPATITIS (CROSS) Status: Chronic (4) STEPHANIE (obstructive sleep apnea) Code(s): G47.33 - OBSTRUCTIVE SLEEP APNEA (ADULT) (PEDIATRIC) Status: Chronic (5) Type 2 diabetes mellitus Status: Chronic (6) Acute on chronic diastolic (congestive) heart failure Code(s): I50.33 - ACUTE ON CHRONIC DIASTOLIC (CONGESTIVE) HEART FAILURE Status : Suspected - Plan Plan: * acute community acquired diarrhea * normal anion gap acidosis * most likely viral gastritis vs food poisoning. Doesn't have risk factors for C.diff * son had pharyngitis and was sent for COVID rule out. However, spoke with son over phone and no clear indication to test for COVID in him or patient. Asked son that as soon as results are back, to call and notify staff regarding results. Nursing staff informed to not put patient in isolation but if results of son are positive, to put in isolation. * * stool culture * IVF 100cc/hr * follow I/O strictly. Log bowel movements * if has several large watery bowel movements overnight, send C. diff and start oral vancomycin * * Blanitis * uncircumscribed * appears inflammatory rather than infectious * * clean penile shaft * clotrimazole 0.1% bid * CAD, CHFrEF * continue home management * T2DM * on 70/30 110 units overall * * lantus 40, humalog 13 tidac, high correction * disposition/PPx * full code * DVT PPx - lovenox * GI PPx - no Ix
[2019-09-25] MEDS ORDERED: Dextrose 5% in Water 1,000 ML IV PRN (21:57)
[2019-09-25] MEDS ORDERED: Dextrose 50% Abboject 50 ML SYRINGE SLOW IVP PRN (21:57)
[2019-09-25] MEDS ORDERED: HumaLOG 300 UNITS/3 ML VIAL SC PRN ×3 (21:57→22:19)
[2019-09-25 22:06] LABS: Bacteria/HPF None Seen HPF (None Seen); Bilirubin Negative (Negative); Blood, Urine Negative (Negative); Clarity Clear (Clear); Glucose, Urine (Dipstick) Greater than 1000 mg/dL (Negative); Leukocyte Negative Leu/uL (Negative); Nitrite Negative (Negative); Protein, Urine (Dipstick) Negative (Neg-Trace); RBC/HPF 0-3 HPF (0-3); Squamous Epithelial None Seen HPF (0-3); Urobilinogen Normal mg/dL (Less than 2); WBC/HPF 0-3 HPF (0-3)
[2019-09-25] MEDS ORDERED: Finasteride 5 MG TAB PO SCH (22:15)
[2019-09-25] MEDS ORDERED: Carvedilol 3.125 MG TAB PO SCH (22:15)
[2019-09-25] MEDS ORDERED: Lisinopril 5 MG TAB PO SCH (22:15)
[2019-09-25] MEDS ORDERED: Tamsulosin HCl 0.4 MG CAP PO SCH (22:15)
[2019-09-25] MEDS ORDERED: Insulin Glargine 10 UNITS in Pre-Filled Syringe 1 EACH SC SCH (22:15)
[2019-09-25] MEDS ORDERED: Atorvastatin Calcium 40 MG TAB PO SCH (22:15)
[2019-09-25] MEDS ORDERED: Insulin Glargine 30 UNITS in Pre-Filled Syringe 1 EACH SC SCH (22:30)
[2019-09-26] MEDS: Sodium Chloride 0.9% 1,000 ML IV SCH (05:27)
[2019-09-26] MEDS ORDERED: Mometasone 100 MCG/Formoterol 5 MCG 120 PUFF INHALER INH SCH (06:30)
[2019-09-26 07:12] LABS: #Eosinphils 0.2 thou/uL (0.0-0.7); #Lymphocytes 2.1 thou/uL (1.20-3.40); #Monocytes 0.6 thou/uL (0.11-0.59); #Neutrophils 4.6 thou/uL (1.40-6.50); %Basophils 0.4 % (0.0-1.0); %Eosinophils 2.9 % (0.0-10.0); %Lymphocytes 27.8 % (21.0-51.0); %Monocytes 7.3 % (0.0-10.0); %Neutrophils 61.6 % (42.0-75.0); Hemoglobin 12.5 g/dL (14.0-18.0); Mean Corpuscular HGB CONC 34.3 g/dL (32.0-36.0); Mean Corpuscular Hemoglobin 32.6 pg (27.0-31.0); Mean Corpuscular Volume 94.9 fL (78.0-98.0); Mean Platelet Volume 9.2 fL (7.4-10.4); Platelet Count 139 thou/uL (130-400); RBC Distribution Width 12.7 % (11.5-14.5); Red Blood Cell (RBC) Count 3.84 mill/uL (4.70-6.10); White Blood Cell (WBC) Count 7.5 thou/uL (4.8-10.8)
[2019-09-26 07:32] LABS: Anion Gap 11 mmol/L (10-20); BUN (Urea Nitrogen) 15 mg/dL (8.4-25.7); Calc. Creatinine Clearance 180 mL/min (70-130); Calcium 8.8 mg/dL (7.8-10.44); Carbon Dioxide 21 mmol/L (23-31); Chloride 111 mmol/L (98-107); Estimated GFR-MDRD 89; Glucose 167 mg/dL (80-115); Potassium 4.4 mmol/L (3.5-5.1); Sodium 139 mmol/L (136-145)
[2019-09-26] MEDS ORDERED: Lisinopril 5 MG TAB PO SCH (09:00)
[2019-09-26] MEDS ORDERED: Enoxaparin Sodium 30 MG/0.3 ML SYRINGE SC SCH (09:00)
[2019-09-26] MEDS ORDERED: Carvedilol 3.125 MG TAB PO SCH (09:00)
[2019-09-26] MEDS ORDERED: Insulin Glargine 10 UNITS in Pre-Filled Syringe 1 EACH SC SCH ×2 (09:00→21:00)
[2019-09-26] MEDS ORDERED: Aspirin 325 mg Enteric Coated Tablet PO SCH (09:00)
[2019-09-26] MEDS: HumaLOG 300 UNITS/3 ML VIAL SC SCH ×2 (10:17→12:22)
[2019-09-26] MEDS: Clotrimazole 1 % Cream 30 GM TUBE TOP SCH (10:24)
[2019-09-26 11:09] VITALS: BP 144/76; TEMP 97.5
[2019-09-26] MEDS ORDERED: Finasteride 5 MG TAB PO SCH (21:00)
[2019-09-26] MEDS ORDERED: Atorvastatin Calcium 40 MG TAB PO SCH ×2 (21:00)
[2019-09-26] MEDS ORDERED: Tamsulosin HCl 0.4 MG CAP PO SCH (21:00)
--- NOTE | 2019-09-27 12:26 | DIS ---
DATE OF ADMISSION: 09/25/2019 DATE OF DISCHARGE: 09/26/2019 Mr. Blum is a 64-year-old male with medical history of type 2 diabetes, coronary artery disease, CHF, mixed systolic and diastolic, who presented with diarrhea for one day. Of note, his son was sick with a viral syndrome. After visit with his son, he was diagnosed with viral gastroenteritis. The patient's diarrhea resolved the day following admission. On presentation, he had hypertension and electrolyte abnormalities, both of which were resolved. Had hypovolemia as well as normal anion gap as a result of diarrhea. He was managed supportively and was discharged hemodynamically stable with no complaints. CONTINUED MEDICATIONS: 1. Glimepiride. 2. Metformin. 3. Coreg. 4. Ranolazine. 5. Finasteride. 6. Tamsulosin. 7. Breo Ellipta. 8. Atorvastatin. 9. Lasix. 10. Aspirin. 11. Jardiance. 12. NovoLog 70/30. 13. Pioglitazone. 14. Lisinopril. Job ID: [id number]
--- NOTE | 2019-09-27 15:28 | EKG ---
Test Reason : EMERGENCY EXAM Blood Pressure : / mmHG Vent. Rate : 055 BPM Atrial Rate : 037 BPM P-R Int : 000 ms QRS Dur : 082 ms QT Int : 398 ms P-R-T Axes : 000 021 087 degrees QTc Int : 380 ms Sinus bradycardia Nonspecific ST and T wave abnormality Abnormal ECG Confirmed by SENIA RUST, YUSUF Vanessa ([id number]), editorial assistant HAL MCKEON ([id number]) on 09/27/2019 3:28:04 PM Referred By: Confirmed By:YUSUF CONN MD
--- NOTE | 2019-09-28 06:28 | PQF ---
SAP Leather Piece Inspector Crystal Reports Winform Viewer IVÁN VALDEZ AGGIE BENITEZ JR [id number] [facility] [id number] CLINICAL DOCUMENTATION CLARIFICATION FORM: POST DISCHARGE Addendum to original discharge summary date: ____ Late entry note date: __ DATE: 09/28/19 ATTN:Aggie Puente Please exercise your independent, professional judgment in responding to the clarification form. Clinical indicators are provided on the bottom of this form for your review Can you please further clarify if Sepsis is ruled in or ruled out? Sepsis [ ] Ruled in diagnosis [ ] Continue to treat [ ] Resolved [ x ] Ruled out diagnosis [ ] Cannot rule out diagnosis [ ] Other diagnosis [ ] Unable to determine In addition, please specify: Present on Admission (POA): [ ] Yes [ ] No [ ] Unable to determine For continuity of documentation, please document condition throughout progress notes and discharge summary. Thank You. CLINICAL INDICATORS - SIGNS / SYMPTOMS / LABS ED Provider pg5- Sepsis H and P pg.1- presents with diarrhea H and P pg.1- found to be hypotensive, tachycardic, responded to fluids Abdomen/Pelvis CT 09/24- colonic diverticulosis, hepatic steatosis VS- Temp 97.5F L, Pulse 80, BP 139/87 Respi 18 Laboratory- WBC: 12.4H, 7.5 Labs Lactate: 09/24=2.3,1.5 Collected 09/24 Blood culture:no growth at 48 hrs HP pg4 09/24 acidosis RISK FACTORS Former smoker- H and P pg.2 64 years old- H and P pg.1 Acute community acquired diarrhea- H and P pg.4 HTN- H and P pg.1 DM- H and P pg.1 CAD- H and P pg.1 CHF- H and P pg.1 TREATMENTS Abdomen/Pelvis CT 09/24 Chest X ray 09/24 IV Fluids- MAR Vancomycin 2gm IV- MAR Blood culture Collected 09/24 (This form is maintained as a part of the permanent medical record) 2014 [employer]. All Rights Reserved [email or web address] [email or web address]
--- NOTE | 2019-09-28 06:31 | PQF ---
SAP Transcription Typist Crystal Reports Winform Viewer IVÁN VALDEZ JR AGGIE BURNS [id number] [facility] [id number] CLINICAL DOCUMENTATION CLARIFICATION FORM: POST DISCHARGE Addendum to original discharge summary date: ____ Late entry note date: __ DATE: 09/28/19 ATTN: Aggie Burns Please exercise your independent, professional judgment in responding to the clarification form. Clinical indicators are provided on the bottom of this form for your review Based on your clinical judgment, can you please specify etiology of patient's abdominal pain and diarrhea? [ ] Diverticulosis of colon [ x ] Viral gastritis [ ] Umbilical hernia [ ] Other diagnosis please specify [ ] Unable to determine In addition, please specify: Present on Admission (POA): [x ] Yes [ ] No [ ] Unable to determine For continuity of documentation, please document condition throughout progress notes and discharge summary. Thank You. CLINICAL INDICATORS - SIGNS / SYMPTOMS / LABS H and P pg.1- presents with diarrhea H and P pg.1- found to be hypotensive, tachycardic, responded to fluids Abdomen/Pelvis CT 09/24- colonic diverticulosis, hepatic steatosis VS- Temp 97.5F L, Pulse 80, BP 139/87 Respi 18 Laboratory- WBC: 12.4H, 7.5 ED Notes 09/24 complaints of nausea,vomiting and diarrhea HP pg4 09/24 most likely viral gastritis vs. food poisoning HP pg4 09/24 negative for C.diff RISK FACTORS Former smoker- H and P pg.2 64 years old- H and P pg.1 Acute community acquired diarrhea- H and P pg.4 HTN- H and P pg.1 DM- H and P pg.1 CAD- H and P pg.1 CHF- H and P pg.1 TREATMENTS: Abdomen/Pelvis CT 09/24 Chest X ray 09/24 IV Fluids- MAR Vancomycin 2gm IV- MAR Stool culture HP pg4 09/24 (This form is maintained as a part of the permanent medical record) 2014 [employer]. All Rights Reserved Quinten [email or web address]
== END 2019-09-26 15:01 | disposition home or self-care (01) | DRG 392 ==
LOC: ERS 12:41 → T4-B 15:37
PROVIDERS: ADMIT Internal Medicine; ATTEND Internal Medicine
DX: A08.4 Viral intestinal infection, unspecified (principal); I50.42 Chronic combined systolic (congestive) and diastolic (congestive) heart failure; J44.9 Chronic obstructive pulmonary disease, unspecified; I25.10 Atherosclerotic heart disease of native coronary artery without angina pectoris; E11.9 Type 2 diabetes mellitus without complications; K76.0 Fatty (change of) liver, not elsewhere classified; M19.90 Unspecified osteoarthritis, unspecified site; I11.0 Hypertensive heart disease with heart failure; G47.33 Obstructive sleep apnea (adult) (pediatric); N48.1 Balanitis; K75.81 Nonalcoholic steatohepatitis (NASH); Z87.891 Personal history of nicotine dependence; Z79.84 Long term (current) use of oral hypoglycemic drugs; Z79.899 Other long term (current) drug therapy; Z95.5 Presence of coronary angioplasty implant and graft; Z95.0 Presence of cardiac pacemaker
CPT/HCPCS: 36415; 36416; 71045; 74177; 80048; 80053; 81001; 82550; 83605; 83690; 83735; 83880; 84484; 85025; 87040; 93005; 94760; 96365; 96366; 96367; 96372; J0500; J1650; J1815; J2543; J2550; J3370; J7030; Q9967

== ENCOUNTER 2020-04-14 10:58 | Emergency (ER) | payer OTHER ==
[2020-04-14] MEDS ORDERED: Iopamidol-370 76% 500 ML 1 ML ONE (11:45)
[2020-04-14] MEDS ORDERED: Ketorolac Tromethamine 30 MG/ML VIAL ONE (12:47)
[2020-04-14] MEDS ORDERED: Ondansetron PF 4 MG/2 ML Vial ONE (12:47)
[2020-04-14 12:50] LABS: #Basophils 0.1 thou/uL (0.0-0.2); #Eosinphils 0.2 thou/uL (0.0-0.7); #Neutrophils 5.9 thou/uL (1.40-6.50); %Basophils 1.1 % (0.0-1.0); %Eosinophils 1.4 % (0.0-10.0); %Lymphocytes 35.9 % (21.0-51.0); %Monocytes 8.5 % (0.0-10.0); Hemoglobin 14.6 g/dL (14.0-18.0); Mean Corpuscular HGB CONC 33.7 g/dL (32.0-36.0); Mean Corpuscular Hemoglobin 31.2 pg (27.0-31.0); Mean Corpuscular Volume 92.6 fL (78.0-98.0); Mean Platelet Volume 8.7 fL (7.4-10.4); Platelet Count 196 thou/uL (130-400); RBC Distribution Width 12.9 % (11.5-14.5); Red Blood Cell (RBC) Count 4.68 mill/uL (4.70-6.10); White Blood Cell (WBC) Count 11.2 thou/uL (4.8-10.8)
[2020-04-14 13:07] LABS: ALT (SGPT) 40 U/L (8-55); AST (SGOT) 21 U/L (5-34); Albumin 4.2 g/dL (3.4-4.8); Alkaline Phosphatase 67 U/L (40-110); Anion Gap 16 mmol/L (10-20); BUN (Urea Nitrogen) 18 mg/dL (8.4-25.7); Bilirubin, Total 0.5 mg/dL (0.2-1.2); Calc. Creatinine Clearance 0 mL/min (70-130); Calcium 9.8 mg/dL (7.8-10.44); Carbon Dioxide 23 mmol/L (23-31); Chloride 103 mmol/L (98-107); Globulin 3.1 g/dL (2.4-3.5); Glucose 153 mg/dL (80-115); Lipase 89 U/L (8-78); Potassium 4.2 mmol/L (3.5-5.1); Protein, Total 7.3 g/dL (5.8-8.1); Sodium 138 mmol/L (136-145)
--- NOTE | 2020-04-14 14:20 | CT ---
EXAM: Abdomen and pelvic CT scan with contrast: HISTORY: Right-sided abdominal pain and right flank pain COMPARISON: None FINDINGS: Lungs:3 vessel coronary artery calcific disease. Liver: Minimal hepatomegaly with fatty change. Gallbladder:Somewhat small gallbladder without evidence for acute cholecystitis, there is one tiny pu nctate focus of increased attenuation, conceivably this could represent a tiny gallstone. Common bile duct:Normal Pancreas:Unremarkable Spleen:Minimal splenomegaly Adrenal glands:Unremarkable. Kidneys:0.5 cm nonobstructing left lower pole renal calculus. No solid or cystic renal mass. No evidence for bowel obstruction. Aorta:No evidence for aneurysm. Spine:No significant acute process. No CT evidence for acute appendicitis. The urinary bladder is unremarkable. Reproductive system:Unremarkable as visualized. Hernias:Moderate-sized fat-containing umbilical hernia No abscess, adenopathy, or abnormal fluid collection within the abdomen or pelvis. IMPRESSION: Evidence for hepatosplenomegaly. Nonobstructing left renal calculus. Umbilical fat-containing hernia. Other findings as above. No significant new process.
[2020-04-14 14:29] LABS: Bilirubin Negative (Negative); Blood, Urine Negative (Negative); Clarity Clear (Clear); Glucose, Urine (Dipstick) Greater than 1000 mg/dL (Negative); Ketone, Urine Negative (Negative); Leukocyte Negative Leu/uL (Negative); Nitrite Negative (Negative); Protein, Urine (Dipstick) Negative (Neg-Trace); Specific Gravity, Urine 1.028 (1.002-1.036); Urobilinogen Normal mg/dL (Less than 2); pH, Urine 5.5 (5.0-9.0)
== END 2020-04-14 15:36 | disposition home or self-care (01) ==
LOC: ERS 10:58
DX: R10.9 Unspecified abdominal pain (principal); J44.9 Chronic obstructive pulmonary disease, unspecified; I25.10 Atherosclerotic heart disease of native coronary artery without angina pectoris; I11.0 Hypertensive heart disease with heart failure; I50.9 Heart failure, unspecified; M19.90 Unspecified osteoarthritis, unspecified site; G47.30 Sleep apnea, unspecified; Z79.84 Long term (current) use of oral hypoglycemic drugs; Z79.899 Other long term (current) drug therapy
CPT/HCPCS: 36415; 74177; 80053; 81003; 82274; 83690; 85025; 96374; 96375; J1885; J2405; Q9967

== ENCOUNTER 2020-05-09 22:33 | Emergency (ER) | payer OTHER ==
--- NOTE | 2020-05-09 23:07 | RAD ---
EXAM: CHEST ONE VIEW HISTORY: Covid positive. Weakness. Cough. COMPARISON: 09/25/2019 FINDINGS: Cardiac silhouette is magnified by projection but stable in size. Pulmonary vasculature is within nor mal limits. The lungs are clear. A remote healed left clavicle fracture is seen. No interval change from prior study. IMPRESSION: No acute cardiopulmonary process. Chest radiographs exhibit low sensitivity for evaluation of subtle groundglass opacities which can be seen with Covid 19.
[2020-05-09 23:28] LABS: #Basophils 0.1 thou/uL (0.0-0.2); #Eosinphils 0.1 thou/uL (0.0-0.7); #Lymphocytes 1.7 thou/uL (1.20-3.40); #Monocytes 0.8 thou/uL (0.11-0.59); #Neutrophils 3.3 thou/uL (1.40-6.50); %Lymphocytes 27.9 % (21.0-51.0); %Monocytes 14.1 % (0.0-10.0); %Neutrophils 56.1 % (42.0-75.0); Mean Corpuscular HGB CONC 33.9 g/dL (32.0-36.0); Mean Corpuscular Hemoglobin 31.4 pg (27.0-31.0); Mean Corpuscular Volume 92.6 fL (78.0-98.0); Mean Platelet Volume 9.1 fL (7.4-10.4); Platelet Count 133 thou/uL (130-400); RBC Distribution Width 13.2 % (11.5-14.5); Red Blood Cell (RBC) Count 4.46 mill/uL (4.70-6.10); White Blood Cell (WBC) Count 5.9 thou/uL (4.8-10.8)
[2020-05-10] MEDS ORDERED: Albuterol 200 PUFF (6.7GM INHALER) ONE ×2 (00:13→00:14)
[2020-05-10 00:19] LABS: Bilirubin Negative (Negative); Blood, Urine Negative (Negative); Clarity Clear (Clear); Glucose, Urine (Dipstick) Greater than 1000 mg/dL (Negative); Ketone, Urine Negative (Negative); Leukocyte Negative Leu/uL (Negative); Nitrite Negative (Negative); Protein, Urine (Dipstick) Negative (Neg-Trace); Specific Gravity, Urine 1.026 (1.002-1.036); Urobilinogen Normal mg/dL (Less than 2); pH, Urine 5.5 (5.0-9.0)
[2020-05-10 00:28] LABS: ALT (SGPT) 106 U/L (8-55); AST (SGOT) 58 U/L (5-34); Alkaline Phosphatase 65 U/L (40-110); Anion Gap 16 mmol/L (10-20); BUN (Urea Nitrogen) 19 mg/dL (8.4-25.7); Bilirubin, Total 0.7 mg/dL (0.2-1.2); Calc. Creatinine Clearance 0 mL/min (70-130); Calcium 9.3 mg/dL (7.8-10.44); Carbon Dioxide 25 mmol/L (23-31); Chloride 98 mmol/L (98-107); Globulin 2.5 g/dL (2.4-3.5); Glucose 217 mg/dL (80-115); Potassium 3.7 mmol/L (3.5-5.1); Protein, Total 6.5 g/dL (5.8-8.1); Sodium 135 mmol/L (136-145)
[2020-05-10] MEDS ORDERED: Azithromycin 250 MG TAB ONE (01:35)
[2020-05-10] MEDS ORDERED: Dexamethasone 4 MG TAB ONE (01:35)
== END 2020-05-10 01:40 | disposition home or self-care (01) ==
LOC: ERS 22:33
DX: U07.1 COVID-19 (principal); J44.9 Chronic obstructive pulmonary disease, unspecified; E11.9 Type 2 diabetes mellitus without complications; I50.9 Heart failure, unspecified; G47.30 Sleep apnea, unspecified; Z87.891 Personal history of nicotine dependence; Z79.84 Long term (current) use of oral hypoglycemic drugs; Z79.82 Long term (current) use of aspirin; Z79.899 Other long term (current) drug therapy
CPT/HCPCS: 36415; 71045; 80053; 81003; 83880; 84484; 85025; 93005; J8540

== ENCOUNTER 2020-05-17 22:28 | Inpatient (IN) | payer OTHER ==
[2020-05-17 23:32] LABS: #Lymphocytes 1.2 thou/uL (1.20-3.40); #Monocytes 0.5 thou/uL (0.11-0.59); #Neutrophils 4.7 thou/uL (1.40-6.50); %Basophils 0.6 % (0.0-1.0); %Eosinophils 0.3 % (0.0-10.0); %Lymphocytes 19.2 % (21.0-51.0); %Monocytes 6.9 % (0.0-10.0); %Neutrophils 72.9 % (42.0-75.0); Hemoglobin 13.8 g/dL (14.0-18.0); Mean Corpuscular HGB CONC 34.9 g/dL (32.0-36.0); Mean Corpuscular Hemoglobin 31.8 pg (27.0-31.0); Mean Corpuscular Volume 90.9 fL (78.0-98.0); Platelet Count 138 thou/uL (130-400); RBC Distribution Width 12.9 % (11.5-14.5); Red Blood Cell (RBC) Count 4.33 mill/uL (4.70-6.10); White Blood Cell (WBC) Count 6.4 thou/uL (4.8-10.8)
[2020-05-17 23:55] LABS: ALT (SGPT) 49 U/L (8-55); AST (SGOT) 58 U/L (5-34); Albumin 3.7 g/dL (3.4-4.8); Alkaline Phosphatase 55 U/L (40-110); Anion Gap 18 mmol/L (10-20); BUN (Urea Nitrogen) 15 mg/dL (8.4-25.7); Bilirubin, Total 0.9 mg/dL (0.2-1.2); Calc. Creatinine Clearance 0 mL/min (70-130); Calcium 8.3 mg/dL (7.8-10.44); Carbon Dioxide 20 mmol/L (23-31); Chloride 96 mmol/L (98-107); Globulin 2.7 g/dL (2.4-3.5); Glucose 122 mg/dL (80-115); Potassium 4.4 mmol/L (3.5-5.1); Protein, Total 6.4 g/dL (5.8-8.1); Sodium 130 mmol/L (136-145)
[2020-05-17] MEDS ORDERED: Acetaminophen 500 MG TAB ONE (23:56)
[2020-05-18] MEDS ORDERED: Ketorolac Tromethamine 30 MG/ML VIAL ONE (00:49)
[2020-05-18] MEDS ORDERED: Nitroglycerin 2% Ointment 1 INCH/1 GM Packet ONE (00:49)
[2020-05-18 01:55] LABS: SARS-CoV-2 NAA Rapid Test DETECTED (NotDetected)
[2020-05-18] MEDS ORDERED: Azithromycin 500 MG VIAL ONE (02:51)
[2020-05-18 03:40] LABS: Troponin I 0.018 ng/mL (< 0.028)
[2020-05-18] MEDS ORDERED: Ondansetron ODT 4 MG TAB PO PRN (05:40)
[2020-05-18] MEDS ORDERED: Ondansetron PF 4 MG/2 ML Vial IVP PRN (05:40)
[2020-05-18 05:50] VITALS: BMI 39.2
--- NOTE | 2020-05-18 06:02 | PDOC.HHP ---
Hospitalist HPI - History of Present Illness cierra pain History of Present Illness: This is a 65-year-old male patient with a history of diabetes mellitus, COPD, carotid artery disease status post stent, fatty liver, hypertension who presents with ongoing reducing appetite, fevers worsening cough nausea. He started having chest pain today that led him to come to the ED for further evaluation. Of note most of his family members have Covid. He has been positive for about a week. At presentation his temperature was 100.4, BP 132/72, respiratory rate 20, pulse 96 and saturation 94% on room air. His labs showed mild anemia of 13.8, hyponatremia of 130, rapid Covid was positive. Chest x-ray was concerning for bilateral infiltrates, EKG showed no concerning ST or T wave changes. Troponin was within normal limits. Was started on ceftriaxone, azithromycin and Nitro-Bid also received Toradol and 1 L normal saline. Hospitalist team was then consulted for admission. Hospitalist ROS - Review of Systems Constitutional: reports: fever, chills, weakness, malaise. denies: sweats Respiratory: reports: cough, shortness of breath, SOB with excertion. denies: hemoptysis Cardiovascular: reports: chest pain. denies: palpitations, orthopnea, paroxysmal noc. dyspnea Gastrointestinal: reports: abdominal pain, diarrhea. denies: nausea, vomiting Genitourinary: denies: dysuria, frequency, incontinence, hematuria Musculoskeletal: denies: neck pain, shoulder pain All other systems reviewed; all pertinent +/- noted in HPI/Subj - Medication Medications: Medications: Can refer to ambulatory orders. Allergies: Morphine Hospitalist History - Past Medical History Musculoskeletal: reports: Osteoarthritis Endocrine: reports: Diabetes Other Medical History: diabetes mellitus, COPD, carotid artery disease status post stent, fatty liver, hypertension - Past Surgical History Past Surgical History: reports: no pertinent history, Other (right knee surgery cyst removal Cardiac stent) - Social History Alcohol: reports: Occassional Drugs: reports: none - Exam General Appearance: awake alert General - other findings: Morbidly obese Eye: PERRL, anicteric sclera Heart: RRR, no murmur, no gallops, no rubs Respiratory - other findings: Bilateral occasional wheezing, air entry adequate bilaterally Gastrointestinal: soft Gastrointestinal - other findings: Mild tenderness, no rebound or guarding. Extremities: no cyanosis, 1+ LE edema Neurological: negative: cranial nerve grossly intact, no focal deficits Psychiatric: normal affect, normal behavior, A&O x 3 Hospitalist Results - Labs Result Diagrams: 05/17/20 23:18 05/17/20 23:18 Lab results: WBC 6.4 thou/uL (4.8-10.8) 05/17/20 23:18 Hgb 13.8 g/dL (14.0-18.0) L 05/17/20 23:18 Hct 39.4 % (42.0-52.0) L 05/17/20 23:18 MCV 90.9 fL (78.0-98.0) 05/17/20 23:18 Plt Count 138 thou/uL (130-400) 05/17/20 23:18 Neutrophils % 72.9 % (42.0-75.0) 05/17/20 23:18 Sodium 130 mmol/L (136-145) L 05/17/20 23:18 Potassium 4.4 mmol/L (3.5-5.1) 05/17/20 23:18 Chloride 96 mmol/L (98-107) L 05/17/20 23:18 Carbon Dioxide 20 mmol/L (23-31) L 05/17/20 23:18 BUN 15 mg/dL (8.4-25.7) 05/17/20 23:18 Creatinine 0.94 mg/dL (0.7-1.3) 05/17/20 23:18 Glucose 122 mg/dL (80-115) H 05/17/20 23:18 Calcium 8.3 mg/dL (7.8-10.44) 05/17/20 23:18 Total Bilirubin 0.9 mg/dL (0.2-1.2) 05/17/20 23:18 AST 58 U/L (5-34) H 05/17/20 23:18 ALT 49 U/L (8-55) 05/17/20 23:18 Alkaline Phosphatase 55 U/L (40-110) 05/17/20 23:18 Troponin I 0.018 ng/mL (< 0.028) 05/18/20 03:08 Serum Total Protein 6.4 g/dL (5.8-8.1) 05/17/20 23:18 Albumin 3.7 g/dL (3.4-4.8) 05/17/20 23:18 Hospitalist H&P A/P - Plan Plan: This is a 65-year-old male patient with a history of COPD, coronary disease presenting with worsening shortness of breath, chest pain nausea and loss of appetite in the setting of Covid infection. Pneumonia due to Covid We will start vitamin C and zinc Steroids once he needs oxygen. Hold remdesivir for now CRP ferritin and D-dimer Continue monitoring Chest pain Patient has generalized body pains likely part of Covid. Trend troponin He has a history of hypertension coronary diseaseat risk of ACS Consider stress test if indicated in the setting of Covid. Consider cardiac evaluation in a.m. Abdominal pain Mildly tender without rebound tenderness or guarding. Consider CT abdomen to rule out colitis if worsens. Mild hyponatremia We will monitor. CODE STATUSfull code VTE prophylaxisLovenox
[2020-05-18 06:38] LABS: Troponin I 0.018 ng/mL (< 0.028)
[2020-05-18] MEDS: Nitroglycerin 2% Ointment 1 INCH/1 GM Packet TOP SCH ×3 (07:37→21:47)
[2020-05-18] MEDS: Cholecalciferol (Vitamin D3) 400 UNITS TAB PO SCH (07:42)
[2020-05-18] MEDS: Zinc Sulfate 220 MG CAP PO SCH (07:43)
[2020-05-18] MEDS: Ascorbic Acid 500 mg Chewable Tablet PO SCH (07:43)
[2020-05-18] MEDS ORDERED: Furosemide 40 MG TAB PO PRN (08:11)
[2020-05-18] MEDS ORDERED: Benzonatate 100 MG CAP PO PRN (08:11)
[2020-05-18] MEDS ORDERED: Non-Formulary Item 1 EACH (Acetaminophen [Tylenol] 325 MG Capsule) PO PRN (08:11)
[2020-05-18] MEDS ORDERED: Albuterol Sulfate 2.5 mg/3 ml Neb NEB PRN (08:11)
--- NOTE | 2020-05-18 08:23 | RAD ---
PORTABLE CHEST: Date: 05/18/2020 HISTORY: COVID-positive, nonproductive cough, fever. COMPARISON: 05/09/2020 study. FINDINGS: Heart size within normal limits. Increased density developing in both lungs, moreso on the right side . Some of this is soft tissue, but suggests early infiltrative lung change. IMPRESSION: Findings suggesting some early lung infiltrates, more right-sided. POS: OFF
[2020-05-18] MEDS ORDERED: Iopamidol-370 76% 500 ML 1 ML ONE (08:28)
[2020-05-18] MEDS ORDERED: INSULIN ASPART SC SCH (09:00)
[2020-05-18] MEDS ORDERED: TESTOSTERONE NS SCH (09:00)
[2020-05-18] MEDS ORDERED: Aspirin 325 mg Enteric Coated Tablet PO SCH (09:00)
[2020-05-18] MEDS ORDERED: INSULIN ASPART PROTAMINE SC SCH (09:00)
[2020-05-18] MEDS ORDERED: PIOGLITAZONE HCL 30 MG PO SCH (09:00)
[2020-05-18] MEDS ORDERED: [UNRECOGNIZED DRUG - OTHER] SC SCH (09:00)
[2020-05-18] MEDS ORDERED: Non-Formulary Item 1 EACH (Omeprazole [Omeprazole] 40 MG Capsule.Dr) PO SCH (09:00)
[2020-05-18] MEDS: Aspirin 81 mg Enteric Coated Tablet PO SCH (11:32)
[2020-05-18] MEDS: Empagliflozin 25 MG TAB PO SCH (11:33)
[2020-05-18] MEDS: Carvedilol 3.125 MG TAB PO SCH (11:33)
[2020-05-18] MEDS: Pioglitazone HCl 45 MG TAB PO SCH (11:37)
[2020-05-18] MEDS: HumuLIN 70/30 (300 UNITS/3 ML VIAL) SC SCH ×2 (11:38→21:47)
[2020-05-18] MEDS: Clotrimazole 1 % Cream 30 GM TUBE TOP SCH ×2 (11:38→21:44)
--- NOTE | 2020-05-18 13:46 | CT ---
CT ANGIOGRAM THORAX WITH CONTRAST: (CTA pulmonary angiogram) DATE: 05/18/2020 HISTORY: 65-year-old male with dyspnea and left-sided chest pain. TECHNIQUE: IV injection of iodinated contrast. Scan acquisition timing attempted to coincide with iodinated contrast bolus reaching maximal density in pulmonary arteries. 3-D MIP reconstructions. FINDINGS: Good opacification of pulmonary arteries. There is no pulmonary thromboembolism. No thoracic aortic aneurysm or dissection. No pleural effusion or pneumothorax. Numerous, extensive, peripheral and central patchy groundglass opacities, many of them confluent into moderately large regions, throughout the bilateral upper lobes, lower lobes, and to a lesser degree right middle lobe. Nonspecific mild mediastinal and hilar lymphadenopathy, noncalcified. IMPRESSION: 1) moderate degree of bilateral COVID-19 pneumonia. 2) no pulmonary thromboembolism. 3) nonspecific mild mediastinal and hilar lymphadenopathy.
[2020-05-18] MEDS: Dexamethasone 4 mg/ml Vial SLOW IVP SCH (14:12)
[2020-05-18] MEDS: Acetaminophen 325 MG TAB PO PRN (14:24)
[2020-05-18] MEDS ORDERED: REMDESIVIR (EUA) 200 MG in Sodium Chloride 0.9% 250 ML 210 ML IV SCH (14:30)
[2020-05-18] MEDS: Glimepiride 4 MG TAB PO SCH (16:30)
[2020-05-18] MEDS: metFORMIN 500 MG TAB PO SCH (16:30)
--- NOTE | 2020-05-18 17:00 | PDOC.HOSPP ---
- Subjective Encounter Date: 05/18/20 Encounter Time: 07:30 Subjective: Seen for follow-up regarding COVID-19 pneumonia. He denies nausea or vomiting. - Objective Vital Signs & Weight: Vital Signs (12 hours) Temp Pulse Resp BP Pulse Ox 05/18/20 16:30 98.9 F 79 20 122/58 L 93 L 05/18/20 11:50 99.2 F 77 18 122/58 L 92 L 05/18/20 07:50 98.9 F 74 18 105/54 L 93 L 05/18/20 05:13 99.2 F 78 22 H 104/64 97 Weight Weight 297 lb 3 oz Result Diagrams: 05/17/20 23:18 05/17/20 23:18 Additional Labs: Accuchecks 05/18/20 05/18/20 16:37 11:47 POC Glucose 96 148 H Labs and MAR reviewed by tx Hospitalist ROS - Medication Medications: Active Medications Generic Name Dose Route Start Last Admin Trade Name Freq PRN Reason Stop Dose Admin Acetaminophen 650 mg 05/18/20 08:19 05/18/20 14:24 Acetaminophen 325 Mg Tab PO 650 mg Q4H PRN Administration Headache/Fever or Pain Ascorbic Acid 1,000 mg 05/18/20 09:00 05/18/20 07:43 Ascorbic Acid 500 Mg Chewable Tablet PO 1,000 mg DAILY RADHA Administration Aspirin 81 mg 05/18/20 09:00 05/18/20 11:32 Aspirin 81 Mg Enteric Coated Tablet PO 81 mg DAILY RADHA Administration Carvedilol 3.125 mg 05/18/20 09:00 05/18/20 11:33 Carvedilol 3.125 Mg Tab PO 3.125 mg DAILY RADHA Administration Cholecalciferol 400 units 05/18/20 09:00 05/18/20 07:42 Cholecalciferol (Vitamin D3) 400 Units Tab PO 400 units DAILY RADHA Administration Clotrimazole 0 gm 05/18/20 09:00 05/18/20 11:38 Clotrimazole 1 % Cream 30 Gm Tube TOP 1 applic BID RADHA Administration Dexamethasone 6 mg 05/18/20 13:00 05/18/20 14:12 Dexamethasone 4 Mg/Ml Vial SLOW IVP 6 mg 1300 RADHA Administration Glimepiride 4 mg 05/18/20 17:00 05/18/20 16:30 Glimepiride 4 Mg Tab PO 4 mg BID-WM RADHA Administration Insulin Human Isoph/Insulin Regular 60 units 05/18/20 09:00 05/18/20 11:38 Humulin 70/30 (300 Units/3 Ml Vial) SC 60 unit BID RADHA Administration Metformin HCl 1,000 mg 05/18/20 17:00 05/18/20 16:30 Metformin 500 Mg Tab PO 1,000 mg BID-WM RADHA Administration Miscellaneous Medication 25 mg 05/18/20 09:00 05/18/20 11:33 Empagliflozin 25 Mg Tab PO 25 mg DAILY RADHA Administration Nitroglycerin 0.5 inch 05/18/20 06:00 05/18/20 14:12 Nitroglycerin 2% Ointment 1 Inch/1 Gm Packet TOP Not Given Q8HR RADHA Pantoprazole Sodium 40 mg 05/18/20 09:00 05/18/20 11:33 Pantoprazole 40 Mg Tab PO 40 mg DAILY RADHA Administration Pioglitazone HCl 45 mg 05/18/20 09:00 05/18/20 11:37 Pioglitazone Hcl 45 Mg Tab PO 45 mg DAILY RADHA Administration Ranolazine 1,000 mg 05/18/20 09:00 05/18/20 11:33 Ranolazine 500 Mg Tab PO 1,000 mg BID RADHA Administration Sodium Chloride 10 ml 05/18/20 09:00 05/18/20 11:39 Flush - Normal Saline 10 Ml Syringe IVF Not Given Q12HR RADHA Sodium Chloride 10 ml 05/18/20 08:15 05/18/20 16:07 Flush - Normal Saline 10 Ml Syringe IVF 10 ml PRN PRN Administration Saline Flush Zinc Sulfate 220 mg 05/18/20 09:00 05/18/20 07:43 Zinc Sulfate 220 Mg Cap PO 220 mg DAILY RADHA Administration Hosp A/P - Plan -Assessment/plan Pneumonia due to Covid Continue vitamin C and zinc Start dexamethasone, patient needed supplemental oxygen. Check with pharmacy if patient qualifies for remdesivir. Follow inflammatory markers. Chest pain Likely secondary to COVID-19 pneumonia. Chest pain has now resolved. Patient does have a history of coronary artery disease, which is being managed medically. -Diabetes mellitus type II Continue home medications. Continue Accu-Cheks and insulin sliding scale. DVT prophylaxis with Lovenox.
[2020-05-18] MEDS: Finasteride 5 MG TAB PO SCH (21:43)
[2020-05-18] MEDS: Tamsulosin HCl 0.4 MG CAP PO SCH (21:43)
[2020-05-18] MEDS: Atorvastatin Calcium 40 MG TAB PO SCH (21:44)
[2020-05-19] MEDS: Acetaminophen 325 MG TAB PO PRN (02:11)
[2020-05-19 04:56] LABS: #Lymphocytes 0.8 thou/uL (1.20-3.40); #Monocytes 0.4 thou/uL (0.11-0.59); #Neutrophils 5.7 thou/uL (1.40-6.50); %Eosinophils 0.3 % (0.0-10.0); %Lymphocytes 11.1 % (21.0-51.0); %Monocytes 5.7 % (0.0-10.0); %Neutrophils 82.8 % (42.0-75.0); Hemoglobin 12.8 g/dL (14.0-18.0); Mean Corpuscular HGB CONC 31.9 g/dL (32.0-36.0); Mean Platelet Volume 8.9 fL (7.4-10.4); Platelet Count 156 thou/uL (130-400); Red Blood Cell (RBC) Count 4.41 mill/uL (4.70-6.10); White Blood Cell (WBC) Count 6.8 thou/uL (4.8-10.8)
[2020-05-19 05:21] LABS: Anion Gap 16 mmol/L (10-20); BUN (Urea Nitrogen) 17 mg/dL (8.4-25.7); Calc. Creatinine Clearance 153 mL/min (70-130); Calcium 8.5 mg/dL (7.8-10.44); Carbon Dioxide 19 mmol/L (23-31); Chloride 101 mmol/L (98-107); Glucose 194 mg/dL (80-115); Potassium 4.3 mmol/L (3.5-5.1); Sodium 132 mmol/L (136-145)
[2020-05-19] MEDS: Nitroglycerin 2% Ointment 1 INCH/1 GM Packet TOP SCH ×3 (05:32→21:08)
[2020-05-19] MEDS: Glimepiride 4 MG TAB PO SCH ×2 (07:42→19:25)
[2020-05-19] MEDS: Carvedilol 3.125 MG TAB PO SCH (07:43)
[2020-05-19] MEDS: Cholecalciferol (Vitamin D3) 400 UNITS TAB PO SCH (07:43)
[2020-05-19] MEDS: Ascorbic Acid 500 mg Chewable Tablet PO SCH (07:43)
[2020-05-19] MEDS: metFORMIN 500 MG TAB PO SCH ×2 (07:43→19:27)
[2020-05-19] MEDS: Aspirin 81 mg Enteric Coated Tablet PO SCH (07:43)
[2020-05-19] MEDS: Empagliflozin 25 MG TAB PO SCH (07:44)
[2020-05-19] MEDS: Pioglitazone HCl 45 MG TAB PO SCH (07:45)
[2020-05-19] MEDS: Zinc Sulfate 220 MG CAP PO SCH (07:46)
[2020-05-19] MEDS: TESTOSTERONE EA NARE SCH ×3 (07:46→21:05)
[2020-05-19] MEDS: HumuLIN 70/30 (300 UNITS/3 ML VIAL) SC SCH ×2 (07:47→21:07)
[2020-05-19] MEDS: Clotrimazole 1 % Cream 30 GM TUBE TOP SCH ×2 (08:27→21:07)
[2020-05-19] MEDS: Dexamethasone 4 mg/ml Vial SLOW IVP SCH (13:57)
[2020-05-19] MEDS: REMDESIVIR (EUA) 100 MG in Sodium Chloride 0.9% 250 ML 230 ML IV SCH (13:58)
--- NOTE | 2020-05-19 15:56 | PDOC.HOSPP ---
- Subjective Encounter Date: 05/19/20 Encounter Time: 08:00 Subjective: Patient seen for follow-up regarding pneumonia secondary to COVID-19 virus. Reports cough. - Objective Vital Signs & Weight: Vital Signs (12 hours) Temp Pulse Pulse Resp BP BP Pulse Ox 05/19/20 10:50 98.1 F 74 20 120/69 95 05/19/20 08:00 99.1 F 78 20 117/64 96 05/19/20 05:55 98.3 F 71 20 117/56 L 98 05/19/20 04:05 98.4 F 90 20 122/63 92 L Weight Weight 297 lb 3 oz I&O: 05/18/20 05/19/20 05/20/20 06:59 06:59 06:59 Intake Total 4011.5 800 Output Total 2000 500 Balance 2011.5 300 Result Diagrams: 05/19/20 04:28 05/19/20 04:28 Additional Labs: Accuchecks 05/19/20 05/19/20 05/18/20 15:37 10:52 22:07 POC Glucose 99 159 H 194 H 05/18/20 05/18/20 20:51 16:37 POC Glucose 217 H 96 I reviewed patient's labs and MAR EKG Reviewed by me: Yes (Normal sinus rhythm on telemetry) Hospitalist ROS - Review of Systems Respiratory: reports: cough, dry. denies: shortness of breath, hemoptysis, SOB with excertion, pleuritic pain, sputum, wheezing Cardiovascular: denies: chest pain, palpitations, orthopnea, paroxysmal noc. dyspnea, edema, light headedness - Medication Medications: Active Medications Generic Name Dose Route Start Last Admin Trade Name Freq PRN Reason Stop Dose Admin Acetaminophen 650 mg 05/18/20 08:19 05/19/20 02:11 Acetaminophen 325 Mg Tab PO 650 mg Q4H PRN Administration Headache/Fever or Pain Ascorbic Acid 1,000 mg 05/18/20 09:00 05/19/20 07:43 Ascorbic Acid 500 Mg Chewable Tablet PO 1,000 mg DAILY RADHA Administration Aspirin 81 mg 05/18/20 09:00 05/19/20 07:43 Aspirin 81 Mg Enteric Coated Tablet PO 81 mg DAILY RADHA Administration Atorvastatin Calcium 80 mg 05/18/20 21:00 05/18/20 21:44 Atorvastatin Calcium 40 Mg Tab PO 80 mg HS RADHA Administration Carvedilol 3.125 mg 05/18/20 09:00 05/19/20 07:43 Carvedilol 3.125 Mg Tab PO 3.125 mg DAILY RADHA Administration Cholecalciferol 400 units 05/18/20 09:00 05/19/20 07:43 Cholecalciferol (Vitamin D3) 400 Units Tab PO 400 units DAILY RADHA Administration Clotrimazole 0 gm 05/18/20 09:00 05/19/20 08:27 Clotrimazole 1 % Cream 30 Gm Tube TOP 1 applic BID RADHA Administration Dexamethasone 6 mg 05/18/20 13:00 05/19/20 13:57 Dexamethasone 4 Mg/Ml Vial SLOW IVP 6 mg 1300 RADHA Administration Finasteride 5 mg 05/18/20 21:00 05/18/20 21:43 Finasteride 5 Mg Tab PO 5 mg HS RADHA Administration Glimepiride 4 mg 05/18/20 17:00 05/19/20 07:42 Glimepiride 4 Mg Tab PO 4 mg BID-WM RADHA Administration Remdesivir 100 mg/ Sodium 250 mls @ 250 mls/hr 05/19/20 15:00 05/19/20 13:58 Chloride IV 05/22/20 15:59 250 mls 1500 RADHA Administration Insulin Human Isoph/Insulin Regular 60 units 05/18/20 09:00 05/19/20 07:47 Humulin 70/30 (300 Units/3 Ml Vial) SC 60 unit BID RADHA Administration Metformin HCl 1,000 mg 05/18/20 17:00 05/19/20 07:43 Metformin 500 Mg Tab PO 1,000 mg BID-WM RADHA Administration Miscellaneous Medication 25 mg 05/18/20 09:00 05/19/20 07:44 Empagliflozin 25 Mg Tab PO 25 mg DAILY RADHA Administration Nitroglycerin 0.5 inch 05/18/20 06:00 05/19/20 05:32 Nitroglycerin 2% Ointment 1 Inch/1 Gm Packet TOP Not Given Q8HR RADHA Pantoprazole Sodium 40 mg 05/18/20 09:00 05/19/20 07:44 Pantoprazole 40 Mg Tab PO 40 mg DAILY RADHA Administration Testosterone [ 0 each 05/19/20 09:00 05/19/20 13:58 [place]] 7.32 Gm Gel EA NARE 1 each .Log Sawyer TID RADHA Administration Pioglitazone HCl 45 mg 05/18/20 09:00 05/19/20 07:45 Pioglitazone Hcl 45 Mg Tab PO 45 mg DAILY RADHA Administration Ranolazine 1,000 mg 05/18/20 09:00 05/19/20 07:45 Ranolazine 500 Mg Tab PO 1,000 mg BID RADHA Administration Sodium Chloride 10 ml 05/18/20 09:00 05/19/20 07:46 Flush - Normal Saline 10 Ml Syringe IVF 10 ml Q12HR RADHA Administration Sodium Chloride 10 ml 05/18/20 08:15 05/18/20 16:07 Flush - Normal Saline 10 Ml Syringe IVF 10 ml PRN PRN Administration Saline Flush Tamsulosin HCl 0.4 mg 05/18/20 21:00 05/18/20 21:43 Tamsulosin Hcl 0.4 Mg Cap PO 0.4 mg HS RADHA Administration Zinc Sulfate 220 mg 05/18/20 09:00 05/19/20 07:46 Zinc Sulfate 220 Mg Cap PO 220 mg DAILY RADHA Administration - Exam General Appearance: awake alert Eye: anicteric sclera ENT: normocephalic atraumatic, moist mucosa Neck: supple Heart: no gallops, no rubs Respiratory: CTAB Gastrointestinal: soft, non-tender Skin: no rashes Psychiatric: normal affect, normal behavior Hosp A/P - Plan -Assessment/plan Pneumonia due to Covid Patient is on dexamethasone, vitamin C and zinc. Has been started on remdesivir. Chest pain Resolved. -Diabetes mellitus type II Continue Accu-Cheks and insulin sliding scale. 1800-calorie diet. DVT prophylaxis with Lovenox.
[2020-05-19] MEDS: Acetaminophen/Codeine 30-300mg Tablet PO PRN (17:26)
[2020-05-19] MEDS: Melatonin 3 MG TAB PO PRN (21:05)
[2020-05-19] MEDS: Atorvastatin Calcium 40 MG TAB PO SCH (21:06)
[2020-05-19] MEDS: Tamsulosin HCl 0.4 MG CAP PO SCH (21:07)
[2020-05-19] MEDS: Finasteride 5 MG TAB PO SCH (21:07)
[2020-05-19] MEDS ORDERED: Albuterol 200 PUFF (6.7GM INHALER) INH PRN (21:57)
[2020-05-20] MEDS: Acetaminophen/Codeine 30-300mg Tablet PO PRN ×2 (01:01→10:27)
[2020-05-20] MEDS: Nitroglycerin 2% Ointment 1 INCH/1 GM Packet TOP SCH ×4 (05:39→23:57)
[2020-05-20 05:44] LABS: ALT (SGPT) 37 U/L (8-55); AST (SGOT) 34 U/L (5-34); Albumin 3.2 g/dL (3.4-4.8); Alkaline Phosphatase 52 U/L (40-110); Bilirubin, Direct 0.3 mg/dL (0.1-0.3); Bilirubin, Total 0.5 mg/dL (0.2-1.2); Protein, Total 6.3 g/dL (5.8-8.1)
[2020-05-20] MEDS: metFORMIN 500 MG TAB PO SCH ×2 (09:48→18:29)
[2020-05-20] MEDS: Aspirin 81 mg Enteric Coated Tablet PO SCH (09:48)
[2020-05-20] MEDS: Glimepiride 4 MG TAB PO SCH ×2 (09:48→18:29)
[2020-05-20] MEDS: Carvedilol 3.125 MG TAB PO SCH (09:48)
[2020-05-20] MEDS: Cholecalciferol (Vitamin D3) 400 UNITS TAB PO SCH (09:48)
[2020-05-20] MEDS: Pioglitazone HCl 45 MG TAB PO SCH (09:49)
[2020-05-20] MEDS: Empagliflozin 25 MG TAB PO SCH (09:49)
[2020-05-20] MEDS: Clotrimazole 1 % Cream 30 GM TUBE TOP SCH ×2 (09:49→22:20)
[2020-05-20] MEDS: TESTOSTERONE EA NARE SCH ×3 (09:50→23:57)
[2020-05-20] MEDS: Ascorbic Acid 500 mg Chewable Tablet PO SCH (09:54)
[2020-05-20] MEDS: HumuLIN 70/30 (300 UNITS/3 ML VIAL) SC SCH ×2 (09:55→23:56)
[2020-05-20] MEDS: Zinc Sulfate 220 MG CAP PO SCH (09:55)
--- NOTE | 2020-05-20 15:07 | PDOC.HOSPP ---
- Subjective Encounter Date: 05/20/20 Encounter Time: 07:30 Subjective: Patient seen for follow-up regarding Covid 19 infection. Reports feeling better. - Objective Vital Signs & Weight: Vital Signs (12 hours) Temp Pulse Resp BP Pulse Ox 05/20/20 09:45 98.7 F 75 20 139/80 99 05/20/20 04:40 98.0 F 70 18 148/72 H 95 05/20/20 04:25 99 Weight Admit Weight 297 lb Weight 297 lb 3 oz I&O: 05/19/20 05/20/20 05/21/20 06:59 06:59 06:59 Intake Total 4011.5 2350 300 Output Total 1999 1201 Balance 2011.5 1149 300 Result Diagrams: 05/19/20 04:28 05/19/20 04:28 Additional Labs: Accuchecks 05/20/20 05/20/20 05/19/20 11:04 04:45 21:21 POC Glucose 223 H 122 H 167 H 05/19/20 15:37 POC Glucose 99 Labs and MAR reviewed by vt Hospitalist ROS - Review of Systems ENT: reports: mouth pain Gastrointestinal: denies: nausea, vomiting, abdominal pain, diarrhea, constipation, melena, hematochezia Genitourinary: denies: dysuria, frequency, incontinence, hematuria, retention - Medication Medications: Active Medications Generic Name Dose Route Start Last Admin Trade Name Freq PRN Reason Stop Dose Admin Acetaminophen 650 mg 05/18/20 08:19 05/19/20 02:11 Acetaminophen 325 Mg Tab PO 650 mg Q4H PRN Administration Headache/Fever or Pain Acetaminophen/Codeine Phosphate 1 tab 05/19/20 15:55 05/20/20 01:01 Acetaminophen/Codeine 30-300mg Tablet PO 1 tab Q6H PRN Administration Mild Pain (1-3) Acetaminophen/Codeine Phosphate 2 tab 05/19/20 15:55 05/20/20 10:27 Acetaminophen/Codeine 30-300mg Tablet PO 2 tab Q6H PRN Administration Moderate Pain (4-6) Ascorbic Acid 1,000 mg 05/18/20 09:00 05/20/20 09:54 Ascorbic Acid 500 Mg Chewable Tablet PO 1,000 mg DAILY RADHA Administration Aspirin 81 mg 05/18/20 09:00 05/20/20 09:48 Aspirin 81 Mg Enteric Coated Tablet PO 81 mg DAILY RADHA Administration Atorvastatin Calcium 80 mg 05/18/20 21:00 05/19/20 21:06 Atorvastatin Calcium 40 Mg Tab PO 80 mg HS RADHA Administration Carvedilol 3.125 mg 05/18/20 09:00 05/20/20 09:48 Carvedilol 3.125 Mg Tab PO 3.125 mg DAILY RADHA Administration Cholecalciferol 400 units 05/18/20 09:00 05/20/20 09:48 Cholecalciferol (Vitamin D3) 400 Units Tab PO 400 units DAILY RADHA Administration Clotrimazole 0 gm 05/18/20 09:00 05/20/20 09:49 Clotrimazole 1 % Cream 30 Gm Tube TOP 1 applic BID RADHA Administration Dexamethasone 6 mg 05/18/20 13:00 05/19/20 13:57 Dexamethasone 4 Mg/Ml Vial SLOW IVP 6 mg 1300 RADHA Administration Finasteride 5 mg 05/18/20 21:00 05/19/20 21:07 Finasteride 5 Mg Tab PO 5 mg HS RADHA Administration Glimepiride 4 mg 05/18/20 17:00 05/20/20 09:48 Glimepiride 4 Mg Tab PO 4 mg BID-WM RADHA Administration Remdesivir 100 mg/ Sodium 250 mls @ 250 mls/hr 05/19/20 15:00 05/19/20 13:58 Chloride IV 05/22/20 15:59 250 mls 1500 RADHA Administration Insulin Human Isoph/Insulin Regular 60 units 05/18/20 09:00 05/20/20 09:55 Humulin 70/30 (300 Units/3 Ml Vial) SC 60 unit BID RADHA Administration Melatonin 3 mg 05/19/20 15:53 05/19/20 21:05 Melatonin 3 Mg Tab PO 3 mg HSPRN PRN Administration Insomnia Metformin HCl 1,000 mg 05/18/20 17:00 05/20/20 09:48 Metformin 500 Mg Tab PO 1,000 mg BID-WM RADHA Administration Miscellaneous Medication 25 mg 05/18/20 09:00 05/20/20 09:49 Empagliflozin 25 Mg Tab PO 25 mg DAILY RADHA Administration Nitroglycerin 0.5 inch 05/18/20 06:00 05/20/20 05:39 Nitroglycerin 2% Ointment 1 Inch/1 Gm Packet TOP Not Given Q8HR [facility] Pantoprazole Sodium 40 mg 05/18/20 09:00 05/20/20 09:54 Pantoprazole 40 Mg Tab PO 40 mg DAILY RADHA Administration Testosterone [ 0 each 05/19/20 09:00 05/20/20 09:50 Natesto] 7.32 Gm Gel EA NARE 1 each .Retail Sales Associate TID RADHA Administration Pioglitazone HCl 45 mg 05/18/20 09:00 05/20/20 09:49 Pioglitazone Hcl 45 Mg Tab PO 45 mg DAILY RADHA Administration Ranolazine 1,000 mg 05/18/20 09:00 05/20/20 09:54 Ranolazine 500 Mg Tab PO 1,000 mg BID RADHA Administration Sodium Chloride 10 ml 05/18/20 09:00 05/20/20 09:50 Flush - Normal Saline 10 Ml Syringe IVF 10 ml Q12HR RADHA Administration Sodium Chloride 10 ml 05/18/20 08:15 05/18/20 16:07 Flush - Normal Saline 10 Ml Syringe IVF 10 ml PRN PRN Administration Saline Flush Tamsulosin HCl 0.4 mg 05/18/20 21:00 05/19/20 21:07 Tamsulosin Hcl 0.4 Mg Cap PO 0.4 mg HS RADHA Administration Zinc Sulfate 220 mg 05/18/20 09:00 05/20/20 09:55 Zinc Sulfate 220 Mg Cap PO 220 mg DAILY RADHA Administration - Exam General Appearance: awake alert ENT: normocephalic atraumatic Neck: supple, no lymphadenopathy Respiratory: CTAB Gastrointestinal: soft, non-tender Skin: no rashes Psychiatric: normal affect, normal behavior Hosp A/P - Plan -Assessment/plan Pneumonia due to Covid Continue dexamethasone, vitamin C and zinc. Continue remdesivir. Final dose of remdesivir on May 22, 2020. Chest pain Resolved. -Diabetes mellitus type II Continue Accu-Cheks and insulin sliding scale. 1800-calorie diet. DVT prophylaxis with Lovenox.
[2020-05-20] MEDS: REMDESIVIR (EUA) 100 MG in Sodium Chloride 0.9% 250 ML 230 ML IV SCH (18:30)
[2020-05-20] MEDS: Dexamethasone 4 mg/ml Vial SLOW IVP SCH (18:38)
--- NOTE | 2020-05-20 19:16 | PDOC.EVN ---
Event Note - Event Note Event Note: Patient with complaints of chest pain, per RN has been refusing nitropaste during his hospitalization. Agreeable to have it on now, seems to be exacerbated by coughing and did drop sats to mid 80s earlier today. Currently with normal sats on 2L by NC. Patient had COVID pneumonia and recently had CTA 2 days ago which rule out a PE. Hx of CAD and ischemic cardiomyopathy (EF 45-50% on last echo). EKG ordered Nitro paste applied a couple of min ago CXR ordered Troponins ordered as well as routine labs including Mg+ and CRP. Will start DVT Prophylaxis with Enoxaparin. ADDENDUM: EKG notable for rate-controlled Afib. No known history of afib. Cardiology consult placed (primary director gift is Dr. Reyes)
[2020-05-20 19:37] LABS: #Lymphocytes 1.2 thou/uL (1.20-3.40); #Monocytes 0.7 thou/uL (0.11-0.59); #Neutrophils 9.4 thou/uL (1.40-6.50); %Basophils 0.1 % (0.0-1.0); %Eosinophils 0.2 % (0.0-10.0); %Lymphocytes 10.9 % (21.0-51.0); %Monocytes 6.2 % (0.0-10.0); %Neutrophils 82.6 % (42.0-75.0); Hemoglobin 13.3 g/dL (14.0-18.0); Mean Corpuscular HGB CONC 33.5 g/dL (32.0-36.0); Mean Corpuscular Hemoglobin 30.8 pg (27.0-31.0); Mean Corpuscular Volume 92.1 fL (78.0-98.0); Mean Platelet Volume 8.4 fL (7.4-10.4); Platelet Count 238 thou/uL (130-400); RBC Distribution Width 13.1 % (11.5-14.5); Red Blood Cell (RBC) Count 4.31 mill/uL (4.70-6.10); White Blood Cell (WBC) Count 11.4 thou/uL (4.8-10.8)
--- NOTE | 2020-05-20 19:40 | RAD ---
Portable frontal chest radiograph: 05/20/2020 COMPARISON: 05/17/2020 HISTORY: Chest pain, low oxygen saturation FINDINGS: Heart and mediastinal contours are stable. Portable technique and body habitus limits detai led assessment. Hazy areas of peripheral groundglass are suspected bilaterally, right greater than left, not significantly changed when compared to the prior examination, suspicious for stable Covid p neumonia. Findings are better assessed on the 05/18/[address] angiogram IMPRESSION: No significant interval change.
[2020-05-20] MEDS ORDERED: Enoxaparin Sodium 40 MG/0.4 ML SYRINGE SC SCH (20:00)
[2020-05-20 20:05] LABS: ALT (SGPT) 36 U/L (8-55); AST (SGOT) 29 U/L (5-34); Albumin 3.4 g/dL (3.4-4.8); Alkaline Phosphatase 52 U/L (40-110); Anion Gap 13 mmol/L (10-20); BUN (Urea Nitrogen) 17 mg/dL (8.4-25.7); Bilirubin, Total 0.5 mg/dL (0.2-1.2); Calc. Creatinine Clearance 174 mL/min (70-130); Carbon Dioxide 23 mmol/L (23-31); Chloride 103 mmol/L (98-107); Globulin 3.2 g/dL (2.4-3.5); Glucose 102 mg/dL (80-115); Magnesium 1.9 mg/dL (1.6-2.6); Potassium 4.2 mmol/L (3.5-5.1); Protein, Total 6.6 g/dL (5.8-8.1); Sodium 135 mmol/L (136-145)
[2020-05-20] MEDS: Tamsulosin HCl 0.4 MG CAP PO SCH (22:19)
[2020-05-20] MEDS: Finasteride 5 MG TAB PO SCH (22:19)
[2020-05-20] MEDS: Atorvastatin Calcium 40 MG TAB PO SCH (22:19)
[2020-05-20] MEDS: Melatonin 3 MG TAB PO PRN (22:30)
[2020-05-21 05:21] LABS: ALT (SGPT) 32 U/L (8-55); AST (SGOT) 25 U/L (5-34); Albumin 3.1 g/dL (3.4-4.8); Alkaline Phosphatase 53 U/L (40-110); Bilirubin, Direct 0.4 mg/dL (0.1-0.3); Bilirubin, Total 0.6 mg/dL (0.2-1.2); Protein, Total 5.9 g/dL (5.8-8.1)
[2020-05-21] MEDS: Nitroglycerin 2% Ointment 1 INCH/1 GM Packet TOP SCH ×3 (06:18→21:18)
[2020-05-21] MEDS: Glimepiride 4 MG TAB PO SCH ×2 (10:25→18:09)
[2020-05-21] MEDS: metFORMIN 500 MG TAB PO SCH ×2 (10:25→18:08)
[2020-05-21] MEDS: Cholecalciferol (Vitamin D3) 400 UNITS TAB PO SCH (10:26)
[2020-05-21] MEDS: Aspirin 81 mg Enteric Coated Tablet PO SCH (10:26)
[2020-05-21] MEDS: Clotrimazole 1 % Cream 30 GM TUBE TOP SCH ×2 (10:26→22:36)
[2020-05-21] MEDS: Ascorbic Acid 500 mg Chewable Tablet PO SCH (10:26)
[2020-05-21] MEDS: Carvedilol 3.125 MG TAB PO SCH (10:26)
[2020-05-21] MEDS: Empagliflozin 25 MG TAB PO SCH (10:27)
[2020-05-21] MEDS: TESTOSTERONE EA NARE SCH ×3 (10:27→21:17)
[2020-05-21] MEDS: Pioglitazone HCl 45 MG TAB PO SCH (10:28)
[2020-05-21] MEDS: HumuLIN 70/30 (300 UNITS/3 ML VIAL) SC SCH ×2 (10:29→21:21)
[2020-05-21] MEDS: Zinc Sulfate 220 MG CAP PO SCH (10:29)
[2020-05-21] MEDS: Acetaminophen/Codeine 30-300mg Tablet PO PRN (11:15)
[2020-05-21] MEDS: Lidocaine Viscous Sol 2% 15 ml UD Cup SSP PRN (12:00)
[2020-05-21] MEDS: Dexamethasone 4 mg/ml Vial SLOW IVP SCH (12:00)
--- NOTE | 2020-05-21 16:21 | CON ---
DATE OF CONSULTATION: 05/21/2020 REASON FOR CONSULTATION: Chest pain. HISTORY OF PRESENT ILLNESS: Mr. Blum is a very pleasant 65-year-old gentleman who comes to the hospital for chest pain and shortness of breath. He was evaluated in the ER and diagnosed with a COVID-19 pneumonia. He was admitted for Remdesivir and IV steroids as his inflammatory markers were elevated and he had infiltrates on his chest x-ray. During his admission, he has had episodes of chest pain, so Cardiology has been consulted for this. He does have a history of coronary artery disease. He has severe lesions on the distal circumflex as well as a small diagonal. These are all lesions that are not amenable to any type of revascularization given their small size. Other major coronary arteries were widely patent. This was all found on a heart catheterization in 2017. On his admission, he has had several checks of his troponin and they have all been below limit, complete normal troponins. EKG was unremarkable and he has remained in sinus with PACs throughout his hospital stay reviewing all his telemetry. On my evaluation, Mr. Blum denies any more chest pain. He did have an episode last night, but it is a pain he had when he was coughing. He is not coughing a whole lot with COVID. Otherwise, no other issues. PAST MEDICAL HISTORY: 1. Coronary artery disease with severe disease on the distal circumflex, small vessel, as was a very small diagonal, medical therapy only as they are very small arteries. 2. Ischemic cardiomyopathy with last EF at about 45% to 50%. 3. Hypertension. 4. Type 2 diabetes. 5. Fatty liver. 6. Osteoarthritis. 7. Sleep apnea. 8. COPD. SURGICAL HISTORY: 1. Cyst removal. 2. Right knee screw in place. 3. Heart catheterization. SOCIAL HISTORY: Quit smoking about 2 years ago. Social alcohol use. Positive marijuana. ALLERGIES: MORPHINE. OUTPATIENT MEDICATIONS: Were reviewed and they include; 1. Carvedilol 3.125 b.i.d. 2. Tylenol p.r.n. 3. Aspirin 81 a day. 4. Lotrimin cream b.i.d. 5. NovoLog mix 70/30, 60 units b.i.d. 6. Testosterone 5.5 g t.i.d. 7. Albuterol inhaler p.r.n. 8. Jardiance 25 mg a day. 9. Furosemide 40 mg p.r.n. edema. 10. Lipitor 80 mg q.h.s. 11. Omeprazole 40 mg a day. 12. Actos 45 mg a day. 13. Glimepiride 4 mg b.i.d. 14. Benzonatate p.r.n. 15. Metformin 1000 mg b.i.d. 16. Tamsulosin 0.4 q.h.s. 17. Ranolazine 1000 mg b.i.d. 18. Finasteride 5 mg q.h.s. REVIEW OF SYSTEMS: A 12-point review of systems was done and was found to be negative other than stated in the history of present illness. PHYSICAL EXAMINATION: VITAL SIGNS: Temperature 97.2, pulse 85, respiratory rate 26, sat 97% on 2 L nasal cannula, blood pressure 127/59. GENERAL: Awake, alert, oriented x3, in no distress. Rest of the physical exam was secondary to COVID infection. IMAGING: Chest x-ray was reviewed. CT of the thorax was reviewed. He has moderate bilateral COVID pneumonia. No pulmonary thromboembolism. Nonspecific mild mediastinal and hilar lymphadenopathy. Chest x-ray done last night after an episode of chest pain showed no significant change with hazy peripheral ground-glass opacities, right greater than left. No change from previous examination. Suspicion is COVID pneumonia. LABORATORY DATA: Laboratory work was reviewed. CBC with a white count of 6.4 up to 11 now with steroids, hemoglobin of 13.3, platelet count of 238. D-dimer was 0.69 on admission. Chemistries, most recent sodium 135, potassium 4.2, normal BUN and creatinine. GFR greater than 90. Albumin of 3.4. Troponin has been negative x5. COVID-19 PCR was positive. ASSESSMENT AND PLAN: 1. Chest pain. Likely related to his acute coronavirus disease 2019 pneumonia. 2. Coronavirus disease 2019 pneumonia. 3. History of coronary artery disease, stable, no ACS at this time. PLAN: 1. Conservative therapy. Continue home regimen. 2. Continue Ranexa as he had been on 500 mg b.i.d. in the past, agree with a 1000 mg twice a day now. 3. Continue other medications for heart issues. 4. No plan for heart catheterization at this time unless troponins increase or EKG changes. 5. Plan to discharge tomorrow per primary team. I think this should be okay. We will set him up for an echocardiogram in 4 weeks to make sure that his COVID pneumonia has not done any damage to his LV function. Thank you for letting us to participate in this patient's care. We will sign off. Please call with any questions. Job ID: [id number]
--- NOTE | 2020-05-21 17:22 | PDOC.HOSPP ---
- Subjective Encounter Date: 05/21/20 Encounter Time: 07:30 Subjective: Patient seen for follow-up regarding COVID-19 pneumonia. He denies any chest pain at this time. [place] any nausea or vomiting. - Objective Vital Signs & Weight: Vital Signs (12 hours) Temp Pulse Resp BP BP Pulse Ox 05/21/20 15:41 97.1 F L 75 17 151/83 H 95 05/21/20 11:19 97.2 F L 85 26 H 127/59 L 97 05/21/20 08:00 96 05/21/20 07:31 98.1 F 80 18 165/74 H 96 05/21/20 07:26 98.1 F 80 18 144/82 H 144/82 H 96 Weight Admit Weight 297 lb Weight 297 lb 3 oz I&O: 05/20/20 05/21/20 05/22/20 06:59 06:59 06:59 Intake Total 2350 1000 Output Total 1201 Balance 1149 1000 Result Diagrams: 05/20/20 19:30 05/20/20 19:30 Additional Labs: Accuchecks 05/21/20 05/21/20 05/21/20 15:42 11:19 05:08 POC Glucose 153 H 240 H 144 H 05/20/20 05/20/20 19:59 17:26 POC Glucose 132 H 116 H I reviewed patient's labs and MAR EKG Reviewed by me: Yes (Normal sinus rhythm on telemetry) Hospitalist ROS - Review of Systems Respiratory: reports: cough, dry Cardiovascular: denies: chest pain, palpitations, orthopnea, paroxysmal noc. dyspnea, edema, light headedness Gastrointestinal: denies: nausea, vomiting, abdominal pain, diarrhea, constipation, melena, hematochezia - Medication Medications: Active Medications Generic Name Dose Route Start Last Admin Trade Name Freq PRN Reason Stop Dose Admin Acetaminophen 650 mg 05/18/20 08:19 05/19/20 02:11 Acetaminophen 325 Mg Tab PO 650 mg Q4H PRN Administration Headache/Fever or Pain Acetaminophen/Codeine Phosphate 1 tab 05/19/20 15:55 05/20/20 01:01 Acetaminophen/Codeine 30-300mg Tablet PO 1 tab Q6H PRN Administration Mild Pain (1-3) Acetaminophen/Codeine Phosphate 2 tab 05/19/20 15:55 05/21/20 11:15 Acetaminophen/Codeine 30-300mg Tablet PO 2 tab Q6H PRN Administration Moderate Pain (4-6) Ascorbic Acid 1,000 mg 05/18/20 09:00 05/21/20 10:26 Ascorbic Acid 500 Mg Chewable Tablet PO 1,000 mg DAILY RAHDA Administration Aspirin 81 mg 05/18/20 09:00 05/21/20 10:26 Aspirin 81 Mg Enteric Coated Tablet PO 81 mg DAILY RADHA Administration Atorvastatin Calcium 80 mg 05/18/20 21:00 05/20/20 22:19 Atorvastatin Calcium 40 Mg Tab PO 80 mg HS RADHA Administration Carvedilol 3.125 mg 05/18/20 09:00 05/21/20 10:26 Carvedilol 3.125 Mg Tab PO 3.125 mg DAILY RADHA Administration Cholecalciferol 400 units 05/18/20 09:00 05/21/20 10:26 Cholecalciferol (Vitamin D3) 400 Units Tab PO 400 units DAILY RADHA Administration Clotrimazole 0 gm 05/18/20 09:00 05/21/20 10:26 Clotrimazole 1 % Cream 30 Gm Tube TOP 1 applic BID RADHA Administration Dexamethasone 6 mg 05/18/20 13:00 05/20/20 18:38 Dexamethasone 4 Mg/Ml Vial SLOW IVP 6 mg 1300 RADHA Administration Finasteride 5 mg 05/18/20 21:00 05/20/20 22:19 Finasteride 5 Mg Tab PO 5 mg HS RADHA Administration Glimepiride 4 mg 05/18/20 17:00 05/21/20 10:25 Glimepiride 4 Mg Tab PO 4 mg BID-WM RADHA Administration Remdesivir 100 mg/ Sodium 250 mls @ 250 mls/hr 05/19/20 15:00 05/20/20 18:30 Chloride IV 05/22/20 15:59 250 mls 1500 RADHA Administration Insulin Human Isoph/Insulin Regular 60 units 05/18/20 09:00 05/21/20 10:29 Humulin 70/30 (300 Units/3 Ml Vial) SC 60 unit BID RADHA Administration Melatonin 3 mg 05/19/20 15:53 05/20/20 22:30 Melatonin 3 Mg Tab PO 3 mg HSPRN PRN Administration Insomnia Metformin HCl 1,000 mg 05/18/20 17:00 05/21/20 10:25 Metformin 500 Mg Tab PO 1,000 mg BID-WM RADHA Administration Miscellaneous Medication 25 mg 05/18/20 09:00 05/21/20 10:27 Empagliflozin 25 Mg Tab PO 25 mg DAILY RADHA Administration Nitroglycerin 0.5 inch 05/18/20 06:00 05/21/20 06:18 Nitroglycerin 2% Ointment 1 Inch/1 Gm Packet TOP Not Given Q8HR RADHA Pantoprazole Sodium 40 mg 05/18/20 09:00 05/21/20 10:27 Pantoprazole 40 Mg Tab PO 40 mg DAILY RADHA Administration Testosterone [ 0 each 05/19/20 09:00 05/21/20 10:27 Natesto] 7.32 Gm Gel EA NARE 1 each ..Dialysis Biomed Technician TID RADHA Administration Pioglitazone HCl 45 mg 05/18/20 09:00 05/21/20 10:28 Pioglitazone Hcl 45 Mg Tab PO 45 mg DAILY RADHA Administration Ranolazine 1,000 mg 05/18/20 09:00 05/21/20 10:28 Ranolazine 500 Mg Tab PO 1,000 mg BID RADHA Administration Sodium Chloride 10 ml 05/18/20 09:00 05/21/20 10:29 Flush - Normal Saline 10 Ml Syringe IVF 10 ml Q12HR RADHA Administration Sodium Chloride 10 ml 05/18/20 08:15 05/18/20 16:07 Flush - Normal Saline 10 Ml Syringe IVF 10 ml PRN PRN Administration Saline Flush Tamsulosin HCl 0.4 mg 05/18/20 21:00 05/20/20 22:19 Tamsulosin Hcl 0.4 Mg Cap PO 0.4 mg HS RADHA Administration Zinc Sulfate 220 mg 05/18/20 09:00 05/21/20 10:29 Zinc Sulfate 220 Mg Cap PO 220 mg DAILY RADHA Administration - Exam General - other findings: Obese ENT: no oropharyngeal lesions Neck: supple Heart: RRR Respiratory: CTAB Gastrointestinal: soft Extremities: no edema Skin: no rashes Musculoskeletal: normal tone Psychiatric: normal affect Hosp A/P - Plan -Assessment/plan Pneumonia due to Covid Patient is on dexamethasone, vitamin C and zinc. Last dose of remdesivir will be tomorrow Atrial fibrillation Appreciate cardiology service input -Diabetes mellitus type II Continue Accu-Cheks and insulin sliding scale. 1800-calorie diet. Likely home in 24 hours DVT prophylaxis with Lovenox.
[2020-05-21] MEDS: REMDESIVIR (EUA) 100 MG in Sodium Chloride 0.9% 250 ML 230 ML IV SCH (18:09)
[2020-05-21] MEDS ORDERED: Enoxaparin Sodium 40 MG/0.4 ML SYRINGE SC SCH (21:00)
[2020-05-21] MEDS: Atorvastatin Calcium 40 MG TAB PO SCH (21:16)
[2020-05-21] MEDS: Finasteride 5 MG TAB PO SCH (21:17)
[2020-05-21] MEDS: Melatonin 3 MG TAB PO PRN (21:17)
[2020-05-21] MEDS: Tamsulosin HCl 0.4 MG CAP PO SCH (21:17)
[2020-05-22] MEDS: Nitroglycerin 2% Ointment 1 INCH/1 GM Packet TOP SCH ×2 (05:13→14:06)
[2020-05-22 06:05] LABS: ALT (SGPT) 29 U/L (8-55); AST (SGOT) 20 U/L (5-34); Albumin 3.1 g/dL (3.4-4.8); Alkaline Phosphatase 63 U/L (40-110); Bilirubin, Direct 0.3 mg/dL (0.1-0.3); Bilirubin, Total 0.5 mg/dL (0.2-1.2)
[2020-05-22] MEDS: Glimepiride 4 MG TAB PO SCH (08:27)
[2020-05-22] MEDS: Ascorbic Acid 500 mg Chewable Tablet PO SCH (08:28)
[2020-05-22] MEDS: Aspirin 81 mg Enteric Coated Tablet PO SCH (08:28)
[2020-05-22] MEDS: metFORMIN 500 MG TAB PO SCH (08:28)
[2020-05-22] MEDS: Carvedilol 3.125 MG TAB PO SCH (08:28)
[2020-05-22] MEDS: Cholecalciferol (Vitamin D3) 400 UNITS TAB PO SCH (08:29)
[2020-05-22] MEDS: Clotrimazole 1 % Cream 30 GM TUBE TOP SCH (08:29)
[2020-05-22] MEDS: Empagliflozin 25 MG TAB PO SCH (08:29)
[2020-05-22] MEDS: TESTOSTERONE EA NARE SCH ×2 (08:29→14:06)
[2020-05-22] MEDS: Pioglitazone HCl 45 MG TAB PO SCH (08:30)
[2020-05-22] MEDS: Zinc Sulfate 220 MG CAP PO SCH (08:30)
[2020-05-22] MEDS: Lidocaine Viscous Sol 2% 15 ml UD Cup SSP PRN (08:31)
[2020-05-22] MEDS: HumuLIN 70/30 (300 UNITS/3 ML VIAL) SC SCH (08:32)
[2020-05-22] MEDS: Dexamethasone 4 mg/ml Vial SLOW IVP SCH (14:05)
[2020-05-22] MEDS: REMDESIVIR (EUA) 100 MG in Sodium Chloride 0.9% 250 ML 230 ML IV SCH (14:06)
[2020-05-22] MEDS ORDERED: Cosyntropin 250 MCG VIAL SLOW IVP SCH (15:00)
[2020-05-22 16:23] VITALS: BP 110/68; TEMP 99.8
--- NOTE | 2020-05-22 17:07 | PDOC.HOSPP ---
- Subjective Encounter Date: 05/22/20 Encounter Time: 08:30 Subjective: Patient seen for follow-up for Covid pneumonia. Reports feeling better. - Objective Vital Signs & Weight: Vital Signs (12 hours) Temp Pulse Resp BP BP BP BP 05/22/20 16:00 99.8 F H 76 20 110/68 05/22/20 10:55 72 130/74 05/22/20 10:50 99 102/69 05/22/20 10:46 98.2 F 88 20 131/71 05/22/20 10:45 91 123/72 05/22/20 08:00 98.5 F 84 20 152/86 H Pulse Ox 05/22/20 16:00 97 05/22/20 10:55 96 05/22/20 10:50 96 05/22/20 10:46 98 05/22/20 10:45 96 05/22/20 08:00 98 Weight Admit Weight 297 lb Weight 297 lb 3 oz I&O: 05/21/20 05/22/20 05/23/20 06:59 06:59 06:59 Intake Total 1000 1100 450 Balance 1000 1100 450 Result Diagrams: 05/20/20 19:30 05/20/20 19:30 Additional Labs: Accuchecks 05/22/20 05/22/20 05/22/20 16:30 10:43 04:45 POC Glucose 82 97 134 H 05/21/20 20:32 POC Glucose 225 H Labs and MAR reviewed by me EKG Reviewed by me: Yes (Telemetry shows normal sinus rhythm) Hospitalist ROS - Review of Systems Cardiovascular: denies: chest pain, palpitations, orthopnea, paroxysmal noc. dyspnea, edema, light headedness Gastrointestinal: denies: nausea, vomiting, abdominal pain, diarrhea, constipation, melena, hematochezia - Medication Medications: Active Medications Generic Name Dose Route Start Last Admin Trade Name Freq PRN Reason Stop Dose Admin Acetaminophen 650 mg 05/18/20 08:19 05/19/20 02:11 Acetaminophen 325 Mg Tab PO 650 mg Q4H PRN Administration Headache/Fever or Pain Acetaminophen/Codeine Phosphate 1 tab 05/19/20 15:55 05/20/20 01:01 Acetaminophen/Codeine 30-300mg Tablet PO 1 tab Q6H PRN Administration Mild Pain (1-3) Acetaminophen/Codeine Phosphate 2 tab 05/19/20 15:55 05/21/20 11:15 Acetaminophen/Codeine 30-300mg Tablet PO 2 tab Q6H PRN Administration Moderate Pain (4-6) Ascorbic Acid 1,000 mg 05/18/20 09:00 05/22/20 08:28 Ascorbic Acid 500 Mg Chewable Tablet PO 1,000 mg DAILY RADHA Administration Aspirin 81 mg 05/18/20 09:00 05/22/20 08:28 Aspirin 81 Mg Enteric Coated Tablet PO 81 mg DAILY RADHA Administration Atorvastatin Calcium 80 mg 05/18/20 21:00 05/21/20 21:16 Atorvastatin Calcium 40 Mg Tab PO 80 mg HS RADHA Administration Cholecalciferol 400 units 05/18/20 09:00 05/22/20 08:29 Cholecalciferol (Vitamin D3) 400 Units Tab PO 400 units DAILY RADHA Administration Clotrimazole 0 gm 05/18/20 09:00 05/22/20 08:29 Clotrimazole 1 % Cream 30 Gm Tube TOP 1 applic BID RADHA Administration Dexamethasone 6 mg 05/18/20 13:00 05/22/20 14:05 Dexamethasone 4 Mg/Ml Vial SLOW IVP 6 mg 1300 RADHA Administration Enoxaparin Sodium 40 mg 05/21/20 21:00 05/21/20 21:17 Enoxaparin Sodium 40 Mg/0.4 Ml Syringe SC 40 mg 2100 RADHA Administration Finasteride 5 mg 05/18/20 21:00 05/21/20 21:17 Finasteride 5 Mg Tab PO 5 mg HS RADHA Administration Glimepiride 4 mg 05/18/20 17:00 05/22/20 08:27 Glimepiride 4 Mg Tab PO 4 mg BID-WM RADHA Administration Insulin Human Isoph/Insulin Regular 60 units 05/18/20 09:00 05/22/20 08:32 Humulin 70/30 (300 Units/3 Ml Vial) SC 60 unit BID RADHA Administration Lidocaine HCl 15 ml 05/20/20 14:28 05/22/20 08:31 Lidocaine Viscous Naa 2% 15 Ml Ud Cup SSP 15 ml Q6H PRN Administration pain Melatonin 3 mg 05/19/20 15:53 05/21/20 21:17 Melatonin 3 Mg Tab PO 3 mg HSPRN PRN Administration Insomnia Metformin HCl 1,000 mg 05/18/20 17:00 05/22/20 08:28 Metformin 500 Mg Tab PO 1,000 mg BID-WM RADHA Administration Miscellaneous Medication 25 mg 05/18/20 09:00 05/22/20 08:29 Empagliflozin 25 Mg Tab PO 25 mg DAILY RADHA Administration Nitroglycerin 0.5 inch 05/18/20 06:00 05/22/20 14:06 Nitroglycerin 2% Ointment 1 Inch/1 Gm Packet TOP Not Given Q8HR RADHA Pantoprazole Sodium 40 mg 05/18/20 09:00 05/22/20 08:29 Pantoprazole 40 Mg Tab PO 40 mg DAILY RADHA Administration Testosterone [ 0 each 05/19/20 09:00 05/22/20 14:06 Natesto] 7.32 Gm Gel EA NARE 1 each ..Glost Tile Shader TID RADHA Administration Pioglitazone HCl 45 mg 05/18/20 09:00 05/22/20 08:30 Pioglitazone Hcl 45 Mg Tab PO 45 mg DAILY RADHA Administration Ranolazine 1,000 mg 05/18/20 09:00 05/22/20 08:30 Ranolazine 500 Mg Tab PO 1,000 mg BID RADHA Administration Sodium Chloride 10 ml 05/18/20 09:00 05/22/20 08:30 Flush - Normal Saline 10 Ml Syringe IVF 10 ml Q12HR RADHA Administration Sodium Chloride 10 ml 05/18/20 08:15 05/18/20 16:07 Flush - Normal Saline 10 Ml Syringe IVF 10 ml PRN PRN Administration Saline Flush Tamsulosin HCl 0.4 mg 05/18/20 21:00 05/21/20 21:17 Tamsulosin Hcl 0.4 Mg Cap PO 0.4 mg HS RADHA Administration Zinc Sulfate 220 mg 05/18/20 09:00 05/22/20 08:30 Zinc Sulfate 220 Mg Cap PO 220 mg DAILY RADHA Administration - Exam General Appearance: awake alert Eye: anicteric sclera ENT: moist mucosa Neck: supple Heart: RRR Respiratory: CTAB Gastrointestinal: soft, non-tender Skin: no rashes Psychiatric: normal affect, normal behavior Hosp A/P - Plan -Assessment/plan Pneumonia due to Covid Continue dexamethasone, vitamin C and zinc. Patient completed course of remdesivir Atrial fibrillation Continue Coreg -Diabetes mellitus type II Continue Accu-Cheks and insulin sliding scale. 1800-calorie diet. Patient also has orthostatic hypotension. Serum cortisol level is low. Perform cosyntropin test. Patient has been advised to get up slowly from a supine position. Likely home later today or tomorrow.
--- NOTE | 2020-05-23 12:53 | PDOC.DS.DS ---
Provider - Provider Date of Admission: 05/18/20 02:50 Date of Discharge: 05/22/20 Admitting Provider: Gutierrez Ellison MD Consultations: Cardiology (Dr. Reyes) Primary Care Physician: Star Escobedo MD Course - Hospital Course Hospital Course: Discharge diagnoses: 1. Acute hypoxic respiratory failure 2. COVID-19 pneumonia 3. Hypoalbuminemia 4. Hyponatremia 5. Orthostatic hypotension 6. Hypoadrenalism Hospital course: Patient is a pleasant 62-year-old gentleman who was admitted to the hospital on May 17, 2020 for acute hypoxic respiratory failure secondary to COVID-[address] angiogram of the chest showed moderate degree of bilateral COVID- 19 pneumonia, no pulmonary thromboembolism and nonspecific mild mediastinal and hilar lymphadenopathy. He was started on dexamethasone, remdesivir, vitamin C and zinc. He also received convalescent plasma. He continued to improve clinically. He was seen by cardiology service for episodes of chest pain. They will follow up with him as outpatient. He was also found to have orthostatic hypotension. He was normal but cortisol level was less than 1 mcg/dL. He will need further work-up as outpatient through primary care provider's office. Many thanks for allowing me to participate in your patient's care. Please feel free to contact me with any questions or concerns. Destination: Home Total amount of time spent coordinating this discharge: 32 minutes Resuscitation Status: 05/18/20 05:40 Resuscitation Status Routine Resuscitation Status: FULL: Full Resuscitation - Labs Lab Results: 05/20/20 19:30 05/20/20 19:30 Abnormal Lab Results - Last 48 hrs 05/22/20 04:45: Albumin 3.1 L - Physical Exam Vitals: Weight Admit Weight 297 lb Weight 297 lb 3 oz Physical Exam: The patient was seen and examined on the day of discharge. Please refer to my daily hospitalist progress note for further details regarding this [id number] encounter. Problem - Discharge Plan Assessment: See patient discharge instruction sheet for detailed teaching. Patient verbalizes understanding of medications and is able to verbalize follow-up care. See Discharge Plan for additional discharge information. Patient secured in private vehicle prior to departure. FOCUS: Transition from Acute Care after Discharge GOAL: Successful transition to care in the community YOUR TASKS: (1) review all information outlined in your discharge packet (2) follow any instructions outlined in your discharge packet (3) contact your primary care provider if you have questions or need additional assistance Plan - Discharge Medications Prescriptions: Carvedilol [Coreg] 3.125 mg PO BID #60 tab Dexamethasone 6 mg PO DAILY #5 tablet Ascorbic Acid [Vitamin C] 1,000 mg PO DAILY #5 tablet Zinc Sulfate [Zinc-220] 220 mg PO DAILY #5 capsule Home Medications: Medication Instructions Recorded Confirmed Type Glimepiride [Amaryl] 4 mg PO BID-WM #60 tab 01/04/17 05/18/20 Rx metFORMIN HCl 1,000 mg PO BID-WM #60 tab 01/04/17 05/18/20 Rx Finasteride [Proscar] 5 mg PO HS 09/19/18 05/18/20 History Ranolazine [Ranolazine ER] 1,000 mg PO BID 09/19/18 05/18/20 History Tamsulosin HCl [Flomax] 0.4 mg PO HS 09/19/18 05/18/20 History Aspirin [Ecotrin Regular Strength] 81 mg PO DAILY 04/27/19 05/18/20 History Atorvastatin Calcium [Lipitor] 80 mg PO HS 04/27/19 05/18/20 History Empagliflozin [Jardiance] 25 mg PO DAILY 04/27/19 05/18/20 History Furosemide 40 mg PO DAILY PRN 04/27/19 05/18/20 History Insulin Aspart Prot/Insuln Asp 60 units SC BID 04/27/19 05/18/20 History [Novolog Mix 70-30 Flexpen] Pioglitazone HCl [Actos] 45 mg PO DAILY 04/27/19 05/18/20 History Clotrimazole 1% Cream [Lotrimin 1% 1 drop TOP BID #1 tube 09/26/19 05/18/20 Rx Cream] ALButerol Sulfate [Ventolin] 3 ml NEB Q6HR PRN 05/18/20 05/18/20 History Acetaminophen [Tylenol] 650 mg PO PRN PRN 05/18/20 05/18/20 History Benzonatate 100 mg PO Q8HR PRN 05/18/20 05/18/20 History Omeprazole 40 mg PO DAILY 05/18/20 05/18/20 History Testosterone [Natesto] 5.5 gm NS TID 05/18/20 05/18/20 History Ascorbic Acid [Vitamin C] 1,000 mg PO DAILY #5 tablet 05/22/20 Rx Dexamethasone 6 mg PO DAILY #5 tablet 05/22/20 Rx Zinc Sulfate [Zinc-220] 220 mg PO DAILY #5 capsule 05/22/20 Rx Carvedilol [Coreg] 3.125 mg PO BID #60 tab 05/23/20 Rx Allergies: morphine Allergy (Verified 04/27/19 21:56) per pt - Discharge Instructions Discharge Instructions:: Have work-up as outpatient for low cortisol level. Check your blood pressure and heart rate 3 times a day and shows readings to primary care provider. - Follow up Plan Referrals: Petros Reyes MD [Active] - 14 Days Star Escobedo MD [Primary Care Provider] - 3 Days Disposition: HOME Quality - Care Measures CORE MEASURES:: N/A
--- NOTE | 2020-05-25 12:07 | EKG ---
Test Reason : EMERGENCY Blood Pressure : / mmHG Vent. Rate : 091 BPM Atrial Rate : 091 BPM P-R Int : 146 ms QRS Dur : 088 ms QT Int : 360 ms P-R-T Axes : 019 021 072 degrees QTc Int : 442 ms Normal sinus rhythm with sinus arrhythmia Normal ECG Confirmed by KATLYN HIGUERA DO ([id number]), advertising editor DAWSON KELLY ([id number] on 05/25/2020 12:07:10 PM Referred By: Confirmed By:KATLYN HIGUERA DO
== END 2020-05-22 17:10 | disposition home or self-care (01) | DRG 177 ==
LOC: ERS 22:28 → 2SW 05-18 02:50
PROVIDERS: ADMIT Student in an Organized Health Care Education/Training Program; ATTEND Internal Medicine
PROC: XW033E5 Introduction of Remdesivir Anti-infective into Peripheral Vein, Percutaneous Approach, New Technology Group 5 (ICD-10-PCS; 2020-05-18)
PROC: XW13325 Transfusion of Convalescent Plasma (Nonautologous) into Peripheral Vein, Percutaneous Approach, New Technology Group 5 (ICD-10-PCS; principal; 2020-05-19)
PROC: 8E0ZXY6 Isolation (ICD-10-PCS; 2020-05-19)
DX: U07.1 COVID-19 (principal); J12.82 Pneumonia due to coronavirus disease 2019; J96.01 Acute respiratory failure with hypoxia; J44.0 Chronic obstructive pulmonary disease with (acute) lower respiratory infection; E87.1 Hypo-osmolality and hyponatremia; E27.40 Unspecified adrenocortical insufficiency; E11.9 Type 2 diabetes mellitus without complications; K76.0 Fatty (change of) liver, not elsewhere classified; I11.0 Hypertensive heart disease with heart failure; I50.9 Heart failure, unspecified; F12.10 Cannabis abuse, uncomplicated; M19.90 Unspecified osteoarthritis, unspecified site; I25.10 Atherosclerotic heart disease of native coronary artery without angina pectoris; I25.5 Ischemic cardiomyopathy; I48.91 Unspecified atrial fibrillation; E88.09 Other disorders of plasma-protein metabolism, not elsewhere classified; I95.1 Orthostatic hypotension; E66.01 Morbid (severe) obesity due to excess calories; Z68.39 Body mass index [BMI] 39.0-39.9, adult; Z95.5 Presence of coronary angioplasty implant and graft; Z87.891 Personal history of nicotine dependence; Z88.5 Allergy status to narcotic agent; Z79.899 Other long term (current) drug therapy; Z79.4 Long term (current) use of insulin; Z79.82 Long term (current) use of aspirin
CPT/HCPCS: 36415; 36416; 36430; 71045; 71275; 80048; 80053; 80076; 82533; 82728; 83735; 84443; 84484; 85025; 85379; 86140; 86850; 86900; 86901; 93005; 93010; 96365; 96366; 96375; J0456; J1100; J1650; J1815; J1885; J7050; P9017; Q9967; U0002

== ENCOUNTER 2020-05-30 12:34 | Emergency (ER) | payer OTHER ==
[2020-05-30 13:46] LABS: #Basophils 0.1 thou/uL (0.0-0.2); #Eosinphils 0.1 thou/uL (0.0-0.7); #Lymphocytes 2.7 thou/uL (1.20-3.40); #Neutrophils 12.8 thou/uL (1.40-6.50); %Basophils 0.6 % (0.0-1.0); %Eosinophils 0.5 % (0.0-10.0); %Monocytes 5.8 % (0.0-10.0); %Neutrophils 77.1 % (42.0-75.0); Hemoglobin 13.5 g/dL (14.0-18.0); Mean Corpuscular HGB CONC 32.8 g/dL (32.0-36.0); Mean Corpuscular Hemoglobin 31.2 pg (27.0-31.0); Platelet Count 179 thou/uL (130-400); RBC Distribution Width 14.6 % (11.5-14.5); Red Blood Cell (RBC) Count 4.32 mill/uL (4.70-6.10); White Blood Cell (WBC) Count 16.6 thou/uL (4.8-10.8)
[2020-05-30 14:12] LABS: ALT (SGPT) 39 U/L (8-55); AST (SGOT) 25 U/L (5-34); Albumin 3.1 g/dL (3.4-4.8); Alkaline Phosphatase 60 U/L (40-110); Anion Gap 17 mmol/L (10-20); BUN (Urea Nitrogen) 11 mg/dL (8.4-25.7); Bilirubin, Total 0.5 mg/dL (0.2-1.2); Calc. Creatinine Clearance 0 mL/min (70-130); Calcium 8.6 mg/dL (7.8-10.44); Carbon Dioxide 22 mmol/L (23-31); Chloride 99 mmol/L (98-107); Globulin 2.6 g/dL (2.4-3.5); Glucose 139 mg/dL (80-115); Potassium 3.9 mmol/L (3.5-5.1); Protein, Total 5.7 g/dL (5.8-8.1); Sodium 134 mmol/L (136-145)
--- NOTE | 2020-05-30 14:27 | RAD ---
Chest AP view INDICATION: Chest pain and dyspnea with history of Covid positive status COMPARISON: Prior exam dated May 20, 2020 FINDINGS: Lungs: Since the comparison examination there is worsening interstitial and airspace opacities affec ting both lungs. Cardiac silhouette: Moderate cardiomegaly is stable Pulmonary vasculature: Normal Pleural spaces: No pleural effusion or pneumothorax is demonstrated. Upper abdomen: No abnormality seen. Osseous structures: There is stable healed deformity involving the left midshaft clavicle. Chronic o sseous changes are similar. Additional findings: None. IMPRESSION: Worsening bilateral pneumonia
== END 2020-05-30 16:31 | disposition home or self-care (01) ==
LOC: ERS 12:34
DX: U07.1 COVID-19 (principal); J12.82 Pneumonia due to coronavirus disease 2019; J44.9 Chronic obstructive pulmonary disease, unspecified; E11.9 Type 2 diabetes mellitus without complications; G47.30 Sleep apnea, unspecified; I11.0 Hypertensive heart disease with heart failure; I50.9 Heart failure, unspecified; M19.90 Unspecified osteoarthritis, unspecified site; Z87.891 Personal history of nicotine dependence; Z79.899 Other long term (current) drug therapy
CPT/HCPCS: 36415; 36416; 71045; 80053; 84484; 85025; 85379; 93005; 94640; J7620

== ENCOUNTER 2020-09-06 20:52 | Observation (INO) | payer OTHER ==
[2020-09-06] MEDS ORDERED: Aspirin Chewable 81 MG TAB ONE (21:08)
[2020-09-06 21:20] LABS: #Basophils 0.1 thou/uL (0.0-0.2); #Eosinphils 0.3 thou/uL (0.0-0.7); #Monocytes 1.2 thou/uL (0.11-0.59); #Neutrophils 7.7 thou/uL (1.40-6.50); %Basophils 0.7 % (0.0-1.0); %Eosinophils 1.8 % (0.0-10.0); %Lymphocytes 35.1 % (21.0-51.0); %Monocytes 8.4 % (0.0-10.0); Mean Corpuscular HGB CONC 34.4 g/dL (32.0-36.0); Mean Corpuscular Hemoglobin 32.1 pg (27.0-31.0); Mean Corpuscular Volume 93.3 fL (78.0-98.0); Mean Platelet Volume 9.1 fL (7.4-10.4); Platelet Count 206 thou/uL (130-400); RBC Distribution Width 12.8 % (11.5-14.5); Red Blood Cell (RBC) Count 4.69 mill/uL (4.70-6.10); White Blood Cell (WBC) Count 14.2 thou/uL (4.8-10.8)
[2020-09-06 21:47] LABS: ALT (SGPT) 34 U/L (8-55); AST (SGOT) 23 U/L (5-34); Albumin 4.4 g/dL (3.4-4.8); Alkaline Phosphatase 64 U/L (40-110); Anion Gap 19 mmol/L (10-20); BUN (Urea Nitrogen) 19 mg/dL (8.4-25.7); Bilirubin, Total 0.6 mg/dL (0.2-1.2); Calc. Creatinine Clearance 0 mL/min (70-130); Calcium 10.7 mg/dL (7.8-10.44); Carbon Dioxide 22 mmol/L (23-31); Chloride 100 mmol/L (98-107); Globulin 3.1 g/dL (2.4-3.5); Glucose 155 mg/dL (80-115); Lipase 62 U/L (8-78); Potassium 3.8 mmol/L (3.5-5.1); Protein, Total 7.5 g/dL (5.8-8.1); Sodium 137 mmol/L (136-145)
[2020-09-06] MEDS ORDERED: Albuterol 200 PUFF (6.7GM INHALER) ONE (23:18)
[2020-09-06] MEDS ORDERED: predniSONE 20 MG TAB ONE (23:56)
[2020-09-07 01:20] LABS: SARS-CoV-2 NAA Rapid Test Not Detected (NotDetected)
[2020-09-07] MEDS ORDERED: Nitroglycerin 0.4 MG TAB (25 Tab Bottle) SL PRN (01:38)
[2020-09-07] MEDS ORDERED: HYDROcodone/Acetaminophen 5/325 mg Tablet PO PRN (01:38)
[2020-09-07] MEDS ORDERED: Ondansetron PF 4 MG/2 ML Vial IVP PRN (01:38)
[2020-09-07] MEDS ORDERED: Dextrose 5% in Water 1,000 ML IV PRN (01:38)
[2020-09-07] MEDS ORDERED: Ondansetron ODT 4 MG TAB PO PRN (01:38)
[2020-09-07] MEDS ORDERED: Dextrose 50% Abboject 50 ML SYRINGE SLOW IVP PRN (01:38)
[2020-09-07] MEDS ORDERED: Acetaminophen 325 MG TAB PO PRN (01:38)
[2020-09-07 03:35] VITALS: BMI 36.8
[2020-09-07] MEDS: Azithromycin 500 MG in Sodium Chloride 0.9% 250 ML 250 ML IVPB SCH (04:15)
[2020-09-07 05:08] LABS: #Basophils 0.1 thou/uL (0.0-0.2); #Eosinphils 0.1 thou/uL (0.0-0.7); #Lymphocytes 1.8 thou/uL (1.20-3.40); #Monocytes 0.3 thou/uL (0.11-0.59); #Neutrophils 6.3 thou/uL (1.40-6.50); %Basophils 0.7 % (0.0-1.0); %Eosinophils 1.2 % (0.0-10.0); %Lymphocytes 21.2 % (21.0-51.0); %Monocytes 3.3 % (0.0-10.0); %Neutrophils 73.6 % (42.0-75.0); Mean Corpuscular HGB CONC 33.3 g/dL (32.0-36.0); Mean Corpuscular Hemoglobin 31.2 pg (27.0-31.0); Mean Corpuscular Volume 93.6 fL (78.0-98.0); Mean Platelet Volume 8.6 fL (7.4-10.4); Platelet Count 164 thou/uL (130-400); RBC Distribution Width 12.9 % (11.5-14.5); Red Blood Cell (RBC) Count 4.49 mill/uL (4.70-6.10); White Blood Cell (WBC) Count 8.6 thou/uL (4.8-10.8)
[2020-09-07 05:16] LABS: Hemoglobin A1c 7.3 % (4.0-6.0)
[2020-09-07 05:31] LABS: Anion Gap 16 mmol/L (10-20); BUN (Urea Nitrogen) 21 mg/dL (8.4-25.7); Calc. Creatinine Clearance 128 mL/min (70-130); Calcium 10.1 mg/dL (7.8-10.44); Carbon Dioxide 22 mmol/L (23-31); Cardiac Risk 5.6 (Less than 4.5); Chloride 103 mmol/L (98-107); Cholesterol 134 mg/dl (< 200 Desired); Glucose 184 mg/dL (80-115); HDL Cholesterol 24 mg/dL (>60 Neg Risk); LDL Cholesterol, Calculated 72 mg/dL; Potassium 4.2 mmol/L (3.5-5.1); Sodium 137 mmol/L (136-145); Triglycerides 189 mg/dL (Less than 150)
[2020-09-07 05:34] LABS: Troponin I Less than 0.010 ng/mL (< 0.028)
[2020-09-07] MEDS: HumaLOG 300 UNITS/3 ML VIAL SC PRN ×2 (06:24→17:00)
[2020-09-07] MEDS ORDERED: Benzonatate 100 MG CAP PO PRN (06:59)
[2020-09-07] MEDS ORDERED: HumaLOG 300 UNITS/3 ML VIAL SC PRN (07:03)
[2020-09-07] MEDS ORDERED: Non-Formulary Item 1 EACH (Omeprazole [Omeprazole] 40 MG Capsule.Dr) PO SCH (09:00)
[2020-09-07] MEDS ORDERED: Enoxaparin Sodium 40 MG/0.4 ML SYRINGE SC SCH (09:00)
[2020-09-07] MEDS ORDERED: methylPREDNISolone Sod Succ 40 MG VIAL IVP SCH (09:00)
[2020-09-07] MEDS ORDERED: Regadenoson 0.4 MG/5 ML SYRINGE ONE (10:59)
[2020-09-07] MEDS: Finasteride 5 MG TAB PO SCH (12:22)
[2020-09-07] MEDS: Aspirin Chewable 81 MG TAB PO SCH (12:22)
[2020-09-07] MEDS: Enoxaparin Sodium 40 MG/0.4 ML SYRINGE SC SCH (12:23)
[2020-09-07] MEDS ORDERED: Atorvastatin Calcium 40 MG TAB PO SCH (21:00)
[2020-09-07] MEDS ORDERED: Metamucil PACK PO SCH (21:00)
[2020-09-07] MEDS ORDERED: Tamsulosin HCl 0.4 MG CAP PO SCH (21:00)
[2020-09-07] MEDS ORDERED: Docusate 100 MG CAP PO SCH (21:00)
[2020-09-07] MEDS ORDERED: PSYLLIUM HUSK 660 GM PO SCH (21:00)
[2020-09-08] MEDS: Azithromycin 500 MG in Sodium Chloride 0.9% 250 ML 250 ML IVPB SCH (02:12)
[2020-09-08 05:08] LABS: #Lymphocytes 1.9 thou/uL (1.20-3.40); #Monocytes 0.9 thou/uL (0.11-0.59); #Neutrophils 6.6 thou/uL (1.40-6.50); %Basophils 0.2 % (0.0-1.0); %Eosinophils 0.2 % (0.0-10.0); %Monocytes 9.9 % (0.0-10.0); %Neutrophils 69.7 % (42.0-75.0); Mean Corpuscular HGB CONC 34.8 g/dL (32.0-36.0); Mean Corpuscular Hemoglobin 32.6 pg (27.0-31.0); Mean Corpuscular Volume 93.7 fL (78.0-98.0); Mean Platelet Volume 8.9 fL (7.4-10.4); Platelet Count 167 thou/uL (130-400); RBC Distribution Width 12.9 % (11.5-14.5); Red Blood Cell (RBC) Count 3.99 mill/uL (4.70-6.10); White Blood Cell (WBC) Count 9.5 thou/uL (4.8-10.8)
[2020-09-08 05:32] LABS: Anion Gap 15 mmol/L (10-20); BUN (Urea Nitrogen) 21 mg/dL (8.4-25.7); Calc. Creatinine Clearance 129 mL/min (70-130); Calcium 9.3 mg/dL (7.8-10.44); Carbon Dioxide 20 mmol/L (23-31); Chloride 104 mmol/L (98-107); Glucose 279 mg/dL (80-115); Potassium 3.9 mmol/L (3.5-5.1); Sodium 135 mmol/L (136-145)
[2020-09-08] MEDS: HumaLOG 300 UNITS/3 ML VIAL SC PRN ×2 (06:20→11:25)
[2020-09-08] MEDS ORDERED: predniSONE 20 MG TAB PO SCH ×2 (08:00)
[2020-09-08] MEDS: Aspirin Chewable 81 MG TAB PO SCH (08:15)
[2020-09-08] MEDS: Finasteride 5 MG TAB PO SCH (08:15)
[2020-09-08] MEDS: Enoxaparin Sodium 40 MG/0.4 ML SYRINGE SC SCH (08:17)
[2020-09-08] MEDS ORDERED: HumuLIN 70/30 (300 UNITS/3 ML VIAL) SC SCH (09:00)
[2020-09-08 10:15] VITALS: BP 132/68; TEMP 98
== END 2020-09-08 12:22 | disposition home or self-care (01) ==
LOC: ERS 20:52 → 2SW 23:42
PROVIDERS: ADMIT Student in an Organized Health Care Education/Training Program; ATTEND Family Medicine
DX: J44.1 Chronic obstructive pulmonary disease with (acute) exacerbation (principal); E11.9 Type 2 diabetes mellitus without complications; I25.10 Atherosclerotic heart disease of native coronary artery without angina pectoris; I11.0 Hypertensive heart disease with heart failure; I50.9 Heart failure, unspecified; N40.0 Benign prostatic hyperplasia without lower urinary tract symptoms; K76.0 Fatty (change of) liver, not elsewhere classified; R42 Dizziness and giddiness; R53.1 Weakness; Z20.822 Contact with and (suspected) exposure to COVID-19; Z79.4 Long term (current) use of insulin; Z79.899 Other long term (current) drug therapy; Z95.5 Presence of coronary angioplasty implant and graft
CPT/HCPCS: 0240U; 36415; 36416; 71045; 78452; 80048; 80053; 80061; 83036; 83690; 83880; 84484; 85025; 85379; 93005; 93017; 94640; 96365; 96366; 96372; A9500; G0378; J0456; J1650; J1815; J2785; J2920; J7050; J7512; J7620

== ENCOUNTER 2020-09-23 13:07 | Inpatient (IN) | payer OTHER, MEDICAID ==
[2020-09-23 13:37] LABS: #Basophils 0.1 thou/uL (0.0-0.2); #Eosinphils 0.7 thou/uL (0.0-0.7); #Lymphocytes 2.9 thou/uL (1.20-3.40); #Monocytes 0.6 thou/uL (0.11-0.59); #Neutrophils 4.6 thou/uL (1.40-6.50); %Basophils 1.1 % (0.0-1.0); %Eosinophils 8.1 % (0.0-10.0); %Lymphocytes 32.3 % (21.0-51.0); %Monocytes 6.2 % (0.0-10.0); %Neutrophils 52.2 % (42.0-75.0); Hemoglobin 14.4 g/dL (14.0-18.0); Mean Corpuscular HGB CONC 33.9 g/dL (32.0-36.0); Mean Corpuscular Hemoglobin 31.6 pg (27.0-31.0); Mean Corpuscular Volume 93.3 fL (78.0-98.0); Mean Platelet Volume 8.8 fL (7.4-10.4); Platelet Count 143 thou/uL (130-400); RBC Distribution Width 12.6 % (11.5-14.5); Red Blood Cell (RBC) Count 4.56 mill/uL (4.70-6.10); White Blood Cell (WBC) Count 8.9 thou/uL (4.8-10.8)
[2020-09-23 13:51] LABS: PTT 27.5 sec (22.9-36.1)
[2020-09-23 13:52] LABS: ALT (SGPT) 32 U/L (8-55); AST (SGOT) 19 U/L (5-34); Albumin 3.9 g/dL (3.4-4.8); Alkaline Phosphatase 62 U/L (40-110); Anion Gap 17 mmol/L (10-20); BUN (Urea Nitrogen) 13 mg/dL (8.4-25.7); Bilirubin, Total 0.7 mg/dL (0.2-1.2); Calc. Creatinine Clearance 0 mL/min (70-130); Calcium 9.7 mg/dL (7.8-10.44); Carbon Dioxide 22 mmol/L (23-31); Chloride 103 mmol/L (98-107); Globulin 2.8 g/dL (2.4-3.5); Glucose 206 mg/dL (80-115); Lipase 70 U/L (8-78); Potassium 4.5 mmol/L (3.5-5.1); Protein, Total 6.7 g/dL (5.8-8.1); Sodium 137 mmol/L (136-145)
[2020-09-23 16:47] LABS: SARS-CoV-2 NAA Rapid Test Not Detected (NotDetected)
[2020-09-23 19:49] VITALS: BMI 36.1
[2020-09-23] MEDS ORDERED: HYDROcodone/Acetaminophen 5/325 mg Tablet PO PRN (21:56)
[2020-09-23] MEDS ORDERED: Labetalol HCl 100 MG/20 ML VIAL SLOW IVP PRN (21:56)
[2020-09-23] MEDS ORDERED: hydrALAZINE 20 MG/ML VIAL SLOW IVP PRN (21:56)
[2020-09-23] MEDS ORDERED: Acetaminophen 325 MG TAB PO PRN (21:56)
[2020-09-23] MEDS ORDERED: Milk Of Magnesia 30 ML UDCUP PO PRN (21:56)
[2020-09-23] MEDS ORDERED: niCARdipine 25 MG in Sodium Chloride 0.9% 250 ML 240 ML IVPB PRN (21:56)
[2020-09-23] MEDS: Communication Order-Pharmacy FS SCH (22:43)
[2020-09-23 22:56] LABS: Troponin I Less than 0.010 ng/mL (< 0.028)
[2020-09-24 02:34] LABS: Troponin I Less than 0.010 ng/mL (< 0.028)
[2020-09-24 02:46] LABS: ALT (SGPT) 27 U/L (8-55); AST (SGOT) 17 U/L (5-34); Albumin 3.6 g/dL (3.4-4.8); Alkaline Phosphatase 55 U/L (40-110); Anion Gap 15 mmol/L (10-20); BUN (Urea Nitrogen) 12 mg/dL (8.4-25.7); Bilirubin, Total 0.6 mg/dL (0.2-1.2); Calc. Creatinine Clearance 153 mL/min (70-130); Calcium 9.8 mg/dL (7.8-10.44); Carbon Dioxide 22 mmol/L (23-31); Cardiac Risk 5.5 (Less than 4.5); Chloride 104 mmol/L (98-107); Cholesterol 120 mg/dl (< 200 Desired); Globulin 2.4 g/dL (2.4-3.5); Glucose 114 mg/dL (80-115); HDL Cholesterol 22 mg/dL (>60 Neg Risk); Potassium 4.1 mmol/L (3.5-5.1); Sodium 137 mmol/L (136-145)
[2020-09-24 02:51] LABS: Band 8 % (5-11); Eosinophils 5 % (0-10); Hemoglobin 13.7 g/dL (14.0-18.0); Lymphocytes 42 % (21-51); MDiff Complete? YES; Mean Corpuscular HGB CONC 34.5 g/dL (32.0-36.0); Mean Corpuscular Volume 92.7 fL (78.0-98.0); Mean Platelet Volume 8.8 fL (7.4-10.4); Monocytes 8 % (0-10); Neutrophil 37 % (42-75); Platelet Count 137 thou/uL (130-400); RBC Distribution Width 12.7 % (11.5-14.5); Red Blood Cell (RBC) Count 4.29 mill/uL (4.70-6.10); White Blood Cell (WBC) Count 9.5 thou/uL (4.8-10.8)
[2020-09-24 03:26] LABS: Triglycerides 240 mg/dL (Less than 150)
[2020-09-24 03:29] LABS: LDL Cholesterol, Calculated 50 mg/dL
[2020-09-24] MEDS: Finasteride 5 MG TAB PO SCH (12:55)
[2020-09-24] MEDS: Fish Oil 1,000 MG CAP PO SCH ×2 (12:57→20:46)
[2020-09-24] MEDS: metFORMIN XR 500 MG TAB PO SCH ×2 (12:57→20:45)
[2020-09-24] MEDS: Empagliflozin 25 MG TAB PO SCH ×2 (12:57→20:46)
[2020-09-24] MEDS: Pioglitazone HCl 15 MG TAB PO SCH (12:57)
[2020-09-24] MEDS: HumuLIN 70/30 (300 UNITS/3 ML VIAL) SC SCH (13:01)
[2020-09-24] MEDS ORDERED: Metamucil PACK PO PRN (20:55)
[2020-09-24] MEDS ORDERED: Atorvastatin Calcium 40 MG TAB PO SCH (21:00)
[2020-09-24] MEDS ORDERED: Tamsulosin HCl 0.4 MG CAP PO SCH (21:00)
[2020-09-24] MEDS: Communication Order-Pharmacy FS SCH (21:44)
[2020-09-25] MEDS ORDERED: Aspirin 325 mg Enteric Coated Tablet PO SCH (09:00)
[2020-09-25] MEDS ORDERED: Furosemide 40 MG TAB PO SCH (09:00)
[2020-09-25] MEDS: Fish Oil 1,000 MG CAP PO SCH (09:14)
[2020-09-25] MEDS: Pioglitazone HCl 15 MG TAB PO SCH (09:14)
[2020-09-25] MEDS: Finasteride 5 MG TAB PO SCH (09:15)
[2020-09-25] MEDS: Empagliflozin 25 MG TAB PO SCH (09:15)
[2020-09-25] MEDS: metFORMIN XR 500 MG TAB PO SCH (09:15)
[2020-09-25] MEDS: HumuLIN 70/30 (300 UNITS/3 ML VIAL) SC SCH (09:17)
[2020-09-25 11:44] VITALS: BP 123/58; TEMP 98
== END 2020-09-25 13:35 | disposition home or self-care (01) | DRG 62 ==
LOC: ERS 13:07 → ERHOLD 16:14 → CCU 19:40 → 2SE 09-24 17:27
PROVIDERS: ADMIT Internal Medicine; ATTEND Hospitalist
DX: G45.9 Transient cerebral ischemic attack, unspecified (principal); I13.0 Hypertensive heart and chronic kidney disease with heart failure and stage 1 through stage 4 chronic kidney disease, or unspecified chronic kidney disease; I50.32 Chronic diastolic (congestive) heart failure; I42.9 Cardiomyopathy, unspecified; Z20.822 Contact with and (suspected) exposure to COVID-19; J44.9 Chronic obstructive pulmonary disease, unspecified; I25.10 Atherosclerotic heart disease of native coronary artery without angina pectoris; E11.22 Type 2 diabetes mellitus with diabetic chronic kidney disease; K76.0 Fatty (change of) liver, not elsewhere classified; M19.90 Unspecified osteoarthritis, unspecified site; N18.2 Chronic kidney disease, stage 2 (mild); G47.33 Obstructive sleep apnea (adult) (pediatric); E66.9 Obesity, unspecified; N40.0 Benign prostatic hyperplasia without lower urinary tract symptoms; E78.5 Hyperlipidemia, unspecified; K75.81 Nonalcoholic steatohepatitis (NASH); Z95.5 Presence of coronary angioplasty implant and graft; Z87.11 Personal history of peptic ulcer disease; Z87.891 Personal history of nicotine dependence; Z88.5 Allergy status to narcotic agent; Z79.4 Long term (current) use of insulin; Z79.899 Other long term (current) drug therapy; Z68.37 Body mass index [BMI] 37.0-37.9, adult
CPT/HCPCS: 0240U; 36415; 36416; 70450; 70496; 70498; 70551; 71275; 74174; 80053; 80061; 83090; 83690; 84484; 85007; 85025; 85027; 85610; 85730; 93005; 94760; 96365; 96376; J1815; J2997; Q9967

== ENCOUNTER 2021-06-30 12:42 | Observation (INO) | payer OTHER ==
[2021-06-30 14:10] LABS: #Eosinphils 0.2 thou/uL (0.0-0.7); #Lymphocytes 2.4 thou/uL (1.20-3.40); #Monocytes 0.8 thou/uL (0.11-0.59); #Neutrophils 6.7 thou/uL (1.40-6.50); %Basophils 0.3 % (0.0-1.0); %Lymphocytes 23.4 % (21.0-51.0); %Monocytes 8.2 % (0.0-10.0); %Neutrophils 66.2 % (42.0-75.0); Mean Corpuscular HGB CONC 32.6 g/dL (32.0-36.0); Mean Corpuscular Hemoglobin 32.3 pg (27.0-31.0); Mean Corpuscular Volume 98.9 fL (78.0-98.0); Mean Platelet Volume 8.5 fL (7.4-10.4); Platelet Count 169 thou/uL (130-400); RBC Distribution Width 12.4 % (11.5-14.5); Red Blood Cell (RBC) Count 4.34 mill/uL (4.70-6.10); White Blood Cell (WBC) Count 10.1 thou/uL (4.8-10.8)
[2021-06-30 14:31] LABS: ALT (SGPT) 32 U/L (8-55); AST (SGOT) 18 U/L (5-34); Albumin 4.1 g/dL (3.4-4.8); Alkaline Phosphatase 65 U/L (40-110); Anion Gap 14 mmol/L (10-20); BUN (Urea Nitrogen) 13 mg/dL (8.4-25.7); Bilirubin, Total 0.9 mg/dL (0.2-1.2); Calc. Creatinine Clearance 0 mL/min (70-130); Calcium 9.8 mg/dL (7.8-10.44); Carbon Dioxide 24 mmol/L (23-31); Chloride 105 mmol/L (98-107); Globulin 2.8 g/dL (2.4-3.5); Glucose 115 mg/dL (80-115); Lipase 58 U/L (8-78); Potassium 4.4 mmol/L (3.5-5.1); Protein, Total 6.9 g/dL (5.8-8.1); Sodium 139 mmol/L (136-145)
[2021-06-30] MEDS ORDERED: Nitroglycerin 0.4 MG TAB (25 Tab Bottle) SL PRN (17:05)
[2021-06-30] MEDS ORDERED: Guaifenesin DM 100-10/5 ML UDCUP PO PRN (17:08)
[2021-06-30] MEDS ORDERED: Dextrose 5% in Water 1,000 ML IV PRN (17:10)
[2021-06-30] MEDS ORDERED: HumaLOG 300 UNITS/3 ML VIAL SC PRN ×2 (17:10)
[2021-06-30] MEDS ORDERED: Dextrose 50% Abboject 50 ML SYRINGE SLOW IVP PRN (17:10)
[2021-06-30] MEDS ORDERED: Ondansetron ODT 4 MG TAB PO PRN (17:13)
[2021-06-30] MEDS ORDERED: Acetaminophen 325 MG TAB PO PRN (17:13)
[2021-06-30 17:55] LABS: Troponin I Less than 0.010 ng/mL (< 0.028)
[2021-06-30 19:38] VITALS: BMI 36.5
[2021-06-30] MEDS: guaiFENesin ER 600 MG TAB PO SCH (20:35)
[2021-06-30] MEDS: Benzonatate 100 MG CAP PO PRN (20:42)
[2021-06-30 21:05] LABS: Troponin I Less than 0.010 ng/mL (< 0.028)
[2021-06-30] MEDS ORDERED: Ibuprofen 800 MG TAB PO SCH (23:45)
[2021-07-01 05:31] LABS: #Eosinphils 0.3 thou/uL (0.0-0.7); #Lymphocytes 2.5 thou/uL (1.20-3.40); #Monocytes 0.9 thou/uL (0.11-0.59); #Neutrophils 5.6 thou/uL (1.40-6.50); %Basophils 0.4 % (0.0-1.0); %Eosinophils 3.4 % (0.0-10.0); %Lymphocytes 26.7 % (21.0-51.0); %Monocytes 9.5 % (0.0-10.0); Hemoglobin 13.6 g/dL (14.0-18.0); Mean Corpuscular HGB CONC 33.2 g/dL (32.0-36.0); Mean Corpuscular Hemoglobin 33.1 pg (27.0-31.0); Mean Corpuscular Volume 99.7 fL (78.0-98.0); Mean Platelet Volume 8.4 fL (7.4-10.4); Platelet Count 147 thou/uL (130-400); RBC Distribution Width 12.2 % (11.5-14.5); Red Blood Cell (RBC) Count 4.13 mill/uL (4.70-6.10); White Blood Cell (WBC) Count 9.3 thou/uL (4.8-10.8)
[2021-07-01 06:09] LABS: Anion Gap 14 mmol/L (10-20); BUN (Urea Nitrogen) 18 mg/dL (8.4-25.7); Calc. Creatinine Clearance 140 mL/min (70-130); Calcium 9.4 mg/dL (7.8-10.44); Carbon Dioxide 24 mmol/L (23-31); Cardiac Risk 3.7 (Less than 4.5); Chloride 105 mmol/L (98-107); Cholesterol 93 mg/dl (< 200 Desired); Glucose 114 mg/dL (80-115); HDL Cholesterol 25 mg/dL (>60 Neg Risk); LDL Cholesterol, Calculated 38 mg/dL; Magnesium 1.7 mg/dL (1.6-2.6); Potassium 4.2 mmol/L (3.5-5.1); Sodium 139 mmol/L (136-145); Triglycerides 148 mg/dL (Less than 150)
[2021-07-01] MEDS: guaiFENesin ER 600 MG TAB PO SCH ×2 (08:37→21:48)
[2021-07-01 11:47] LABS: SARS-CoV-2 PCR by NAA Not Detected (NotDetected)
[2021-07-01] MEDS: HYDROcodone/Acetaminophen 5/325 mg Tablet PO PRN ×3 (12:01→21:47)
[2021-07-01] MEDS: Benzonatate 100 MG CAP PO PRN (12:01)
[2021-07-01] MEDS ORDERED: Polyethylene Glycol 3350 17 GM Packet PO PRN (17:58)
[2021-07-01] MEDS ORDERED: Bisacodyl 10 MG SUPP PR PRN (17:58)
[2021-07-01] MEDS ORDERED: Pioglitazone HCl 15 MG TAB PO SCH (21:00)
[2021-07-01] MEDS ORDERED: Atorvastatin Calcium 40 MG TAB PO SCH (21:00)
[2021-07-01] MEDS ORDERED: Senokot 8.6 MG TAB PO SCH (21:00)
[2021-07-01] MEDS ORDERED: Tamsulosin HCl 0.4 MG CAP PO SCH (21:00)
[2021-07-01] MEDS ORDERED: Finasteride 5 MG TAB PO SCH (21:00)
[2021-07-01] MEDS: Heparin 5,000 UNITS/ML VIAL SC SCH (21:49)
[2021-07-02] MEDS: HYDROcodone/Acetaminophen 5/325 mg Tablet PO PRN (01:33)
[2021-07-02 04:54] LABS: #Basophils 0.1 thou/uL (0.0-0.2); #Eosinphils 0.2 thou/uL (0.0-0.7); #Lymphocytes 2.4 thou/uL (1.20-3.40); #Monocytes 0.7 thou/uL (0.11-0.59); #Neutrophils 4.1 thou/uL (1.40-6.50); %Basophils 0.8 % (0.0-1.0); %Eosinophils 2.7 % (0.0-10.0); %Lymphocytes 32.4 % (21.0-51.0); %Monocytes 9.2 % (0.0-10.0); Hemoglobin 13.5 g/dL (14.0-18.0); Mean Corpuscular HGB CONC 32.9 g/dL (32.0-36.0); Mean Corpuscular Hemoglobin 32.5 pg (27.0-31.0); Mean Corpuscular Volume 98.6 fL (78.0-98.0); Mean Platelet Volume 8.4 fL (7.4-10.4); Platelet Count 141 thou/uL (130-400); RBC Distribution Width 12.3 % (11.5-14.5); Red Blood Cell (RBC) Count 4.17 mill/uL (4.70-6.10); White Blood Cell (WBC) Count 7.5 thou/uL (4.8-10.8)
[2021-07-02 05:16] LABS: Anion Gap 14 mmol/L (10-20); BUN (Urea Nitrogen) 19 mg/dL (8.4-25.7); Calc. Creatinine Clearance 147 mL/min (70-130); Calcium 9.2 mg/dL (7.8-10.44); Carbon Dioxide 24 mmol/L (23-31); Chloride 106 mmol/L (98-107); Glucose 173 mg/dL (80-115); Potassium 3.7 mmol/L (3.5-5.1); Sodium 140 mmol/L (136-145)
[2021-07-02] MEDS ORDERED: metFORMIN XR 500 MG TAB PO SCH (07:30)
[2021-07-02] MEDS ORDERED: Empagliflozin 25 MG TAB PO SCH (07:30)
[2021-07-02] MEDS ORDERED: Fish Oil 1,000 MG CAP PO SCH (08:00)
[2021-07-02] MEDS: guaiFENesin ER 600 MG TAB PO SCH (08:33)
[2021-07-02] MEDS: Heparin 5,000 UNITS/ML VIAL SC SCH (08:34)
[2021-07-02] MEDS ORDERED: Furosemide 40 MG TAB PO SCH (09:00)
[2021-07-02] MEDS ORDERED: Aspirin 325 mg Enteric Coated Tablet PO SCH (09:00)
[2021-07-02] MEDS ORDERED: HumuLIN 70/30 (300 UNITS/3 ML VIAL) SC SCH (09:00)
[2021-07-02 11:46] VITALS: BP 136/61; TEMP 98.3
[2021-07-08] MEDS ORDERED: Non-Formulary Item 1 EACH (Semaglutide [Ozempic] 0.25 MG/0.2 ML Pen.Injctr) SC SCH (09:00)
== END 2021-07-02 12:17 | disposition home or self-care (01) ==
LOC: ERS 12:42 → 2SW 18:51
PROVIDERS: ADMIT Internal Medicine; ATTEND Internal Medicine
DX: R55 Syncope and collapse (principal); S22.31XA Fracture of one rib, right side, initial encounter for closed fracture; I25.10 Atherosclerotic heart disease of native coronary artery without angina pectoris; E78.5 Hyperlipidemia, unspecified; Z20.822 Contact with and (suspected) exposure to COVID-19; I13.0 Hypertensive heart and chronic kidney disease with heart failure and stage 1 through stage 4 chronic kidney disease, or unspecified chronic kidney disease; E11.22 Type 2 diabetes mellitus with diabetic chronic kidney disease; N18.2 Chronic kidney disease, stage 2 (mild); I50.30 Unspecified diastolic (congestive) heart failure; G47.33 Obstructive sleep apnea (adult) (pediatric); N40.0 Benign prostatic hyperplasia without lower urinary tract symptoms; K27.9 Peptic ulcer, site unspecified, unspecified as acute or chronic, without hemorrhage or perforation; E66.9 Obesity, unspecified; Z68.36 Body mass index [BMI] 36.0-36.9, adult; Z79.4 Long term (current) use of insulin; Z79.82 Long term (current) use of aspirin; Z79.899 Other long term (current) drug therapy; Z88.5 Allergy status to narcotic agent; Z87.891 Personal history of nicotine dependence; Z95.5 Presence of coronary angioplasty implant and graft; W18.30XA Fall on same level, unspecified, initial encounter
CPT/HCPCS: 36415; 36416; 71045; 71111; 80048; 80053; 80061; 83036; 83690; 83735; 84443; 84484; 85025; 93005; 93306; 96372; G0378; J1644; J1815; U0003; U0005

== ENCOUNTER 2021-08-28 14:12 | Outpatient (CLI) | payer OTHER ==
[2021-08-28 15:02] LABS: Bilirubin Neg (Negative); Blood, Urine Negative (Negative); Clarity Clear (Clear); Glucose, Urine (Dipstick) >=1000 mg/dL (Negative); Ketone, Urine Negative (Negative); Leukocyte Negative (Negative); Nitrite Negative (Negative); Protein, Urine (Dipstick) Negative (Neg-Trace); Urobilinogen Normal mg/dL (Less than 2)
[2021-08-28 15:08] LABS: #Basophils 0.1 10x3/uL (0.0-0.2); #Eosinphils 0.2 10x3/uL (0.0-0.5); #Monocytes 0.7 10x3/uL (0.0-1.1); %Basophils 0.6 % (0.0-2.0); %Eosinophils 2.8 % (0.0-6.0); %Lymphocytes 37.9 % (18.0-47.0); %Monocytes 8.8 % (0.0-10.0); %Neutrophils 48.4 % (40.0-75.0); Hemoglobin 13.9 g/dL (13.5-17.5); Mean Corpuscular HGB CONC 33.4 g/dL (32.0-36.0); Mean Corpuscular Hemoglobin 31.9 pg (27.0-33.0); Mean Corpuscular Volume 95.4 fl (81.2-95.1); Mean Platelet Volume 11.5 fl (7.4-10.4); Platelet Count 179 10x3/uL (150-450); RBC Distribution Width 13.2 % (11.5-14.5); Red Blood Cell (RBC) Count 4.36 10x6/uL (4.32-5.72); White Blood Cell (WBC) Count 8.2 10x3/uL (3.5-10.5)
[2021-08-28 15:20] LABS: Anion Gap 15 mmol/L (10-20); BUN (Urea Nitrogen) 17 mg/dL (8.4-25.7); Calc. Creatinine Clearance 0 mL/min (70-130); Calcium 9.8 mg/dL (7.8-10.44); Carbon Dioxide 21 mmol/L (23-31); Chloride 110 mmol/L (98-107); Glucose 109 mg/dL (80-115); Potassium 4.3 mmol/L (3.5-5.1); Sodium 142 mmol/L (136-145)
[2021-08-29 00:19] LABS: SARS-CoV-2 PCR by NAA Not Detected (NotDetected)
== END 2021-08-28 14:13 | disposition home or self-care (01) ==
LOC: LABBT 14:12
PROVIDERS: ATTEND Orthopaedic Surgery Hand Surgery
DX: Z01.818 Encounter for other preprocedural examination (principal); G56.01 Carpal tunnel syndrome, right upper limb; G56.21 Lesion of ulnar nerve, right upper limb; Z20.822 Contact with and (suspected) exposure to COVID-19
CPT/HCPCS: 80048; 81003; 85025; 93005; 93010; U0003; U0005

== ENCOUNTER 2021-09-01 10:55 | Day surgery (SDC) | payer OTHER ==
[2021-08-27 13:11] VITALS: BMI 36.3
[2021-09-01] MEDS ORDERED: Betamet Acet/Betamet Na Ph 30 MG/5 ML VIAL ONE (13:10)
[2021-09-01] MEDS ORDERED: Neomycin-Polymyxin 1 ML AMP ONE (13:10)
[2021-09-01] MEDS ORDERED: Bupivacaine 0.25% 10 ML VIAL ONE ×2 (13:10→16:29)
[2021-09-01] MEDS ORDERED: Bacitracin Zinc Ointment 30 gm TUBE ONE (13:10)
[2021-09-01] MEDS ORDERED: Fentanyl 250 MCG/5 ML VIAL ONE (13:19)
[2021-09-01] MEDS ORDERED: ceFAZolin (BATCH) 2 GM/100 ML BAG ONE (13:47)
[2021-09-01] MEDS ORDERED: PROPOFOL 200 MG/20 ML VIAL ONE (13:54)
[2021-09-01] MEDS ORDERED: Ondansetron PF 4 MG/2 ML Vial ONE (13:54)
[2021-09-01] MEDS ORDERED: Dexamethasone 20 MG/5 ML VIAL ONE (13:54)
[2021-09-01] MEDS ORDERED: Lidocaine 1% PF 5 ML VIAL ONE (13:54)
[2021-09-01] MEDS ORDERED: Ketorolac Tromethamine 30 MG/ML VIAL ONE (17:32)
== END 2021-09-01 18:55 | disposition home or self-care (01) ==
LOC: SDC 10:55
PROVIDERS: ATTEND Orthopaedic Surgery Hand Surgery
PROC: 01N50ZZ Release Median Nerve, Open Approach (ICD-10-PCS; principal; 2021-09-01)
PROC: 01N40ZZ Release Ulnar Nerve, Open Approach (ICD-10-PCS; principal; 2021-09-01)
DX: G56.01 Carpal tunnel syndrome, right upper limb (principal); G56.21 Lesion of ulnar nerve, right upper limb; E11.9 Type 2 diabetes mellitus without complications; I25.10 Atherosclerotic heart disease of native coronary artery without angina pectoris; N40.1 Benign prostatic hyperplasia with lower urinary tract symptoms; J45.40 Moderate persistent asthma, uncomplicated; I42.9 Cardiomyopathy, unspecified; G47.33 Obstructive sleep apnea (adult) (pediatric); N52.9 Male erectile dysfunction, unspecified; Z86.16 Personal history of COVID-19; Z87.891 Personal history of nicotine dependence; Z79.4 Long term (current) use of insulin; Z79.82 Long term (current) use of aspirin; Z79.899 Other long term (current) drug therapy; Z88.5 Allergy status to narcotic agent; Z95.5 Presence of coronary angioplasty implant and graft
CPT/HCPCS: 36416; C1776; J0690; J0702; J1100; J1885; J2405; J2704; J3010; S0020

== ENCOUNTER 2022-09-19 10:32 | Emergency (ER) | payer OTHER ==
[2022-09-19 11:25] LABS: #Eosinphils 0.1 thou/uL (0.0-0.7); #Monocytes 0.7 thou/uL (0.11-0.59); #Neutrophils 5.3 thou/uL (1.40-6.50); %Basophils 0.4 % (0.0-1.0); %Monocytes 8.4 % (0.0-10.0); %Neutrophils 66.6 % (42.0-75.0); Hemoglobin 12.6 g/dL (14.0-18.0); Mean Corpuscular HGB CONC 33.6 g/dL (32.0-36.0); Mean Corpuscular Hemoglobin 31.2 pg (27.0-31.0); Mean Corpuscular Volume 92.8 fl (78.0-98.0); Mean Platelet Volume 10.8 fL (7.4-10.4); Platelet Count 113 10x3/uL (130-400); RBC Distribution Width 13.5 % (11.5-14.5); Red Blood Cell (RBC) Count 4.04 mill/uL (4.70-6.10)
[2022-09-19] MEDS ORDERED: Iopamidol-370 76% 500 ML MDV (1 ML CHARGE) ONE (11:27)
[2022-09-19] MEDS ORDERED: Acetaminophen 500 MG TAB ONE (11:29)
[2022-09-19] MEDS ORDERED: Ipratropium/Albuterol 3 ML NEB ONE (11:33)
[2022-09-19 11:42] LABS: ALT (SGPT) 23 U/L (8-55); AST (SGOT) 13 U/L (5-34); Albumin 3.8 g/dL (3.4-4.8); Alkaline Phosphatase 58 U/L (40-110); Anion Gap 12 mmol/L (10-20); BUN (Urea Nitrogen) 17 mg/dL (8.4-25.7); Bilirubin, Total 0.5 mg/dL (0.2-1.2); Calc. Creatinine Clearance 0 mL/min (70-130); Calcium 9.6 mg/dL (7.8-10.44); Carbon Dioxide 23 mmol/L (23-31); Chloride 108 mmol/L (98-107); Estimated GFR 96; Globulin 2.4 g/dL (2.4-3.5); Glucose 143 mg/dL (80-115); Potassium 4.1 mmol/L (3.5-5.1); Protein, Total 6.2 g/dL (5.8-8.1); Sodium 139 mmol/L (136-145)
[2022-09-19 12:05] LABS: Band 1 % (5-11); CellaVision Operator ID LAB.NR; Eosinophils 2 % (0-10); Lymphocytes 23 % (21-51); Monocytes 5 % (0-10); Neutrophil 69 % (42-75); Platelet Morphology Comment Platelets Decreased; Polychromasia SLIGHT = 2-3 cells HPF (0-2); Total Cell Count 99
[2022-09-19 12:10] LABS: Ovalocytes SLIGHT = 2-5 cells HPF (0-1)
== END 2022-09-19 15:29 | disposition home or self-care (01) ==
LOC: ERS 10:32
DX: R04.2 Hemoptysis (principal); J44.9 Chronic obstructive pulmonary disease, unspecified; I25.10 Atherosclerotic heart disease of native coronary artery without angina pectoris; E11.9 Type 2 diabetes mellitus without complications; Z87.891 Personal history of nicotine dependence; Z79.82 Long term (current) use of aspirin; Z79.899 Other long term (current) drug therapy; Z79.84 Long term (current) use of oral hypoglycemic drugs
CPT/HCPCS: 71275; 80053; 83605; 83880; 84484; 85025; 86850; 86900; 86901; 93005; 94640; 94760; J7620; Q9967

== ENCOUNTER 2024-02-22 10:13 | Observation (INO) | payer MEDICARE, OTHER ==
[2024-02-22] MEDS ORDERED: Iopamidol-370 76% 500 ML MDV (1 ML CHARGE) ONE (10:31)
[2024-02-22 11:21] LABS: PTT 26.2 sec (22.9-36.1); Prothrombin Time 13.2 sec (12.0-14.7)
[2024-02-22 11:27] LABS: #Basophils 0.03 10x3/uL (0.0-0.2); %Basophils 0.4 % (0.0-1.0); %Monocytes 6.7 % (0.0-10.0); %Neutrophils 60.1 % (42.0-75.0); Hematocrit 42.1 % (42.0-52.0); Hemoglobin 14.9 g/dL (14.0-18.0); Mean Corpuscular HGB CONC 35.4 g/dL (32.0-36.0); Mean Corpuscular Hemoglobin 31.4 pg (27.0-31.0); Mean Corpuscular Volume 88.8 fL (78.0-98.0); Mean Platelet Volume 11.5 fL (7.4-10.4); Platelet Count 129 10x3/uL (130-400); RBC Distribution Width 13.1 % (11.5-14.5); Red Blood Cell (RBC) Count 4.74 mill/uL (4.70-6.10)
[2024-02-22 11:43] LABS: ALT (SGPT) 23 U/L (8-55); AST (SGOT) 25 U/L (5-34); Albumin 3.3 g/dL (3.4-4.8); Alkaline Phosphatase 74 U/L (40-110); Anion Gap 13 mmol/L (10-20); BUN (Urea Nitrogen) 11 mg/dL (8.4-25.7); Bilirubin, Total 0.3 mg/dL (0.2-1.2); Calc. Creatinine Clearance 0 mL/min (70-130); Calcium 9.3 mg/dL (7.8-10.44); Carbon Dioxide 18 mmol/L (23-31); Chloride 111 mmol/L (98-107); Estimated GFR 99; Globulin 2.8 g/dL (2.4-3.5); Glucose 189 mg/dL (80-115); Potassium 4.5 mmol/L (3.5-5.1); Protein, Total 6.1 g/dL (5.8-8.1); Sodium 137 mmol/L (136-145)
[2024-02-22 11:50] LABS: Magnesium 1.8 mg/dL (1.6-2.6)
[2024-02-22 11:53] LABS: Troponin I Less than 0.010 ng/mL (< 0.028)
[2024-02-22] MEDS ORDERED: Aspirin Chewable 81 MG TAB ONE (13:34)
[2024-02-22] MEDS ORDERED: Ondansetron PF 4 MG/2 ML Vial IVP PRN (13:47)
[2024-02-22] MEDS ORDERED: Ondansetron ODT 4 MG TAB PO PRN (13:47)
[2024-02-22] MEDS ORDERED: Calcium Carbonate 500 MG ChewTAB PO PRN (13:47)
[2024-02-22] MEDS ORDERED: Senokot S 8.6-50 MG TAB PO PRN (13:47)
[2024-02-22] MEDS ORDERED: Dextrose 50% Abboject 50 ML SYRINGE SLOW IVP PRN (13:52)
[2024-02-22] MEDS ORDERED: Insulin Lispro 100 UNIT/ML 10 ML VIAL SC PRN ×2 (13:52)
[2024-02-22] MEDS ORDERED: Dextrose 5% in Water 1,000 ML IV PRN (13:52)
[2024-02-22] MEDS ORDERED: Glucagon 1 MG/ML KIT IM PRN (13:52)
[2024-02-22 15:41] VITALS: BMI 31.1
[2024-02-22] MEDS: Sodium Chloride 0.9% 1,000 ML IV SCH (16:59)
[2024-02-22] MEDS ORDERED: Finasteride 5 MG TAB PO SCH (21:00)
[2024-02-22] MEDS: Tamsulosin HCl 0.4 MG CAP PO SCH (21:24)
[2024-02-22] MEDS: Atorvastatin Calcium 40 MG TAB PO SCH (21:24)
[2024-02-22] MEDS: Ranolazine ER 500 MG TAB PO SCH (21:24)
[2024-02-22] MEDS: Pantoprazole DR 40 MG TAB PO SCH (21:24)
[2024-02-22] MEDS: FLU (Fluad Triv) TS24-25 (65UP)/MF59C/PF 45 MCG/0.5 ML Syringe IM ONE (21:33)
[2024-02-23 04:25] VITALS: TEMP 97.9
[2024-02-23 04:40] LABS: #Basophils 0.03 10x3/uL (0.0-0.2); %Basophils 0.3 % (0.0-1.0); %Eosinophils 1.6 % (0.0-10.0); %Lymphocytes 33.1 % (21.0-51.0); %Monocytes 7.1 % (0.0-10.0); %Neutrophils 56.9 % (42.0-75.0); Hematocrit 43.3 % (42.0-52.0); Hemoglobin 14.6 g/dL (14.0-18.0); Mean Corpuscular HGB CONC 33.7 g/dL (32.0-36.0); Mean Corpuscular Hemoglobin 30.8 pg (27.0-31.0); Mean Corpuscular Volume 91.4 fL (78.0-98.0); Mean Platelet Volume 11.1 fL (7.4-10.4); Platelet Count 149 10x3/uL (130-400); Red Blood Cell (RBC) Count 4.74 mill/uL (4.70-6.10)
[2024-02-23 05:06] LABS: Hemoglobin A1c 5.9 % (4.0-6.0)
[2024-02-23 05:10] LABS: ALT (SGPT) 22 U/L (8-55); AST (SGOT) 18 U/L (5-34); Albumin 3.1 g/dL (3.4-4.8); Alkaline Phosphatase 68 U/L (40-110); Anion Gap 10 mmol/L (10-20); BUN (Urea Nitrogen) 9 mg/dL (8.4-25.7); Bilirubin, Total 0.7 mg/dL (0.2-1.2); Calc. Creatinine Clearance 128 mL/min (70-130); Calcium 9.4 mg/dL (7.8-10.44); Carbon Dioxide 25 mmol/L (23-31); Cardiac Risk 5.9 (Less than 4.5); Chloride 109 mmol/L (98-107); Cholesterol 148 mg/dl (< 200 Desired); Estimated GFR 96; Globulin 2.6 g/dL (2.4-3.5); Glucose 107 mg/dL (80-115); HDL Cholesterol 25 mg/dL (>60 Neg Risk); LDL Cholesterol, Calculated 98 mg/dL; Potassium 4.4 mmol/L (3.5-5.1); Protein, Total 5.7 g/dL (5.8-8.1); Sodium 140 mmol/L (136-145); Triglycerides 125 mg/dL (Less than 150)
[2024-02-23] MEDS: Aspirin 81 mg Enteric Coated Tablet PO SCH (08:42)
[2024-02-23] MEDS: Enoxaparin 40 MG (0.4 mL) SYRINGE SC SCH (08:42)
[2024-02-23] MEDS: HumuLIN 70/30 100 Unit/ml 10 ml Vial SC SCH (08:42)
[2024-02-23] MEDS: Clopidogrel Bisulfate 75 MG TAB PO SCH (08:42)
[2024-02-23] MEDS: Finasteride 5 MG TAB PO SCH (08:42)
[2024-02-23] MEDS ORDERED: Enoxaparin 40 MG (0.4 mL) SYRINGE SC SCH (09:00)
[2024-02-23] MEDS ORDERED: Aspirin 325 MG TAB PO SCH (09:00)
[2024-02-23 12:25] VITALS: BP 125/87
[2024-02-23] MEDS: Loratadine 10 MG TAB PO SCH (14:13)
== END 2024-02-23 16:24 | disposition home or self-care (01) ==
LOC: ERS 10:13 → SUATTDRO 10:13 → 2SE 13:44
PROVIDERS: ADMIT Internal Medicine; ATTEND Internal Medicine
DX: R29.818 Other symptoms and signs involving the nervous system (principal); E78.5 Hyperlipidemia, unspecified; E11.9 Type 2 diabetes mellitus without complications; I25.10 Atherosclerotic heart disease of native coronary artery without angina pectoris; I11.0 Hypertensive heart disease with heart failure; J44.9 Chronic obstructive pulmonary disease, unspecified; I50.33 Acute on chronic diastolic (congestive) heart failure; G47.33 Obstructive sleep apnea (adult) (pediatric); K76.0 Fatty (change of) liver, not elsewhere classified; Z88.5 Allergy status to narcotic agent; Z79.899 Other long term (current) drug therapy
CPT/HCPCS: 70450; 70496; 70498; 70551; 80053; 80061; 82962 ×2; 83036; 83735; 84484; 85025; 85610; 85730; 93005; 93306; 96372; 97116; 99285; G0378 ×3; J1650; J7030; Q9967; 36415; 36416; 84443

== ENCOUNTER 2024-05-20 15:11 | Inpatient (IN) | payer OTHER ==
[~2024-05-20 15:11] MED LIST changes: -Iopamidol-370 76% 500 ML 1 ML ONE; +Iopamidol-370 76% 500 ML MDV (1 ML CHARGE) ONE
[2024-05-20 15:58] LABS: #Basophils 0.04 10x3/uL (0.0-0.2); %Basophils 0.5 % (0.0-1.0); %Eosinophils 0.7 % (0.0-10.0); %Lymphocytes 36.1 % (21.0-51.0); %Monocytes 6.4 % (0.0-10.0); %Neutrophils 55.6 % (42.0-75.0); Hematocrit 44.3 % (42.0-52.0); Hemoglobin 15.6 g/dL (14.0-18.0); Mean Corpuscular HGB CONC 35.2 g/dL (32.0-36.0); Mean Corpuscular Hemoglobin 30.3 pg (27.0-31.0); Mean Platelet Volume 10.5 fL (7.4-10.4); Platelet Count 170 10x3/uL (130-400); RBC Distribution Width 13.2 % (11.5-14.5); Red Blood Cell (RBC) Count 5.15 mill/uL (4.70-6.10)
[2024-05-20 16:21] LABS: ALT (SGPT) 29 U/L (8-55); AST (SGOT) 18 U/L (5-34); Albumin 3.8 g/dL (3.4-4.8); Alkaline Phosphatase 70 U/L (40-110); Anion Gap 16 mmol/L (10-20); BUN (Urea Nitrogen) 15 mg/dL (8.4-25.7); Bilirubin, Total 0.6 mg/dL (0.2-1.2); Calc. Creatinine Clearance 0 mL/min (70-130); Calcium 9.7 mg/dL (7.8-10.44); Carbon Dioxide 21 mmol/L (23-31); Chloride 105 mmol/L (98-107); Estimated GFR 97; Glucose 155 mg/dL (80-115); Lipase 81 U/L (8-78); Potassium 3.8 mmol/L (3.5-5.1); Protein, Total 6.8 g/dL (5.8-8.1); Sodium 138 mmol/L (136-145)
[2024-05-20 17:08] LABS: Bacteria/HPF None Seen HPF (None Seen); Bilirubin Negative (Negative); Blood, Urine Negative (Negative); CAUTI Indications for Culture Pelvic or flank pain; Clarity Clear (Clear); Glucose, Urine (Dipstick) Greater than 1000 mg/dL (Negative); Ketone, Urine Negative (Negative); Leukocyte Negative Leu/uL (Negative); Nitrite Negative (Negative); Protein, Urine (Dipstick) Negative (Neg-Trace); RBC/HPF 0-3 HPF (0-3); Specific Gravity, Urine 1.015 (1.002-1.036); Squamous Epithelial None Seen HPF (0-3); Urobilinogen Normal mg/dL (Less than 2); WBC/HPF 0-3 HPF (0-3); pH, Urine 6.5 (5.0-9.0)
[2024-05-20 17:11] LABS: Urine Culture Reflex No No
[2024-05-20] MEDS ORDERED: Ketorolac Tromethamine 30 MG (1 mL) VIAL ONE (20:20)
[2024-05-20] MEDS ORDERED: Piperacillin/Tazobactam 3.375 GM VIAL ONE (21:25)
[2024-05-20] MEDS ORDERED: Sodium Chloride 0.9% 100 ML ONE (21:25)
[2024-05-20] MEDS ORDERED: Insulin Lispro 100 UNIT/ML 10 ML VIAL SC PRN (21:49)
[2024-05-20] MEDS ORDERED: Ondansetron PF 4 MG/2 ML Vial IVP PRN (21:49)
[2024-05-20] MEDS ORDERED: Glucagon 1 MG/ML KIT IM PRN (21:49)
[2024-05-20] MEDS ORDERED: Dextrose 50% Abboject 50 ML SYRINGE SLOW IVP PRN (21:49)
[2024-05-20] MEDS ORDERED: Ipratropium/Albuterol 3 ML NEB NEB PRN (21:49)
[2024-05-20] MEDS ORDERED: Dextrose 5% in Water 1,000 ML IV PRN (21:49)
[2024-05-20] MEDS ORDERED: Ondansetron ODT 4 MG TAB PO PRN (21:49)
[2024-05-20 23:00] VITALS: BMI 30.4
[2024-05-20] MEDS: Ketorolac Tromethamine 30 MG (1 mL) VIAL IVP PRN (23:17)
[2024-05-21 04:37] LABS: #Basophils 0.03 10x3/uL (0.0-0.2); %Basophils 0.3 % (0.0-1.0); %Eosinophils 1.3 % (0.0-10.0); %Lymphocytes 33.5 % (21.0-51.0); %Monocytes 8.2 % (0.0-10.0); Hemoglobin 15.2 g/dL (14.0-18.0); Mean Corpuscular HGB CONC 35.3 g/dL (32.0-36.0); Mean Corpuscular Hemoglobin 30.5 pg (27.0-31.0); Mean Corpuscular Volume 86.3 fL (78.0-98.0); Mean Platelet Volume 10.9 fL (7.4-10.4); Platelet Count 169 10x3/uL (130-400); RBC Distribution Width 13.3 % (11.5-14.5); Red Blood Cell (RBC) Count 4.98 mill/uL (4.70-6.10)
[2024-05-21 05:04] LABS: ALT (SGPT) 28 U/L (8-55); AST (SGOT) 19 U/L (5-34); Albumin 3.4 g/dL (3.4-4.8); Alkaline Phosphatase 63 U/L (40-110); Anion Gap 11 mmol/L (10-20); BUN (Urea Nitrogen) 15 mg/dL (8.4-25.7); Bilirubin, Total 0.7 mg/dL (0.2-1.2); Calc. Creatinine Clearance 112 mL/min (70-130); Calcium 9.2 mg/dL (7.8-10.44); Carbon Dioxide 24 mmol/L (23-31); Chloride 108 mmol/L (98-107); Estimated GFR 88; Globulin 2.7 g/dL (2.4-3.5); Glucose 125 mg/dL (80-115); Protein, Total 6.1 g/dL (5.8-8.1); Sodium 139 mmol/L (136-145)
[2024-05-21] MEDS: Enoxaparin 40 MG (0.4 mL) SYRINGE SC SCH (09:48)
[2024-05-21] MEDS: Piperacillin/Tazobactam 3.375 GM in Sodium Chloride 0.9% 100 ML IVPB SCH (09:49)
[2024-05-21] MEDS: diphenhydrAMINE 25 MG CAP PO SCH (14:01)
[2024-05-21] MEDS: Loratadine 10 MG TAB PO PRN (20:09)
[2024-05-21] MEDS: diphenhydrAMINE 12.5 MG/5 ML UDCUP PO SCH (21:09)
[2024-05-21] MEDS: Hydrocortisone 1% Cream 30 GM TUBE TOP PRN (21:09)
[2024-05-22 06:03] LABS: #Basophils 0.05 10x3/uL (0.0-0.2); %Basophils 0.5 % (0.0-1.0); %Eosinophils 2.1 % (0.0-10.0); %Lymphocytes 35.3 % (21.0-51.0); %Monocytes 7.6 % (0.0-10.0); %Neutrophils 53.6 % (42.0-75.0); Hematocrit 46.2 % (42.0-52.0); Hemoglobin 16.2 g/dL (14.0-18.0); Mean Corpuscular HGB CONC 35.1 g/dL (32.0-36.0); Mean Corpuscular Hemoglobin 30.5 pg (27.0-31.0); Mean Corpuscular Volume 86.8 fL (78.0-98.0); Mean Platelet Volume 10.7 fL (7.4-10.4); Platelet Count 161 10x3/uL (130-400); RBC Distribution Width 13.3 % (11.5-14.5); Red Blood Cell (RBC) Count 5.32 mill/uL (4.70-6.10)
[2024-05-22 06:22] LABS: ALT (SGPT) 27 U/L (8-55); AST (SGOT) 18 U/L (5-34); Albumin 3.4 g/dL (3.4-4.8); Anion Gap 9 mmol/L (10-20); BUN (Urea Nitrogen) 15 mg/dL (8.4-25.7); Bilirubin, Total 0.7 mg/dL (0.2-1.2); Calc. Creatinine Clearance 110 mL/min (70-130); Calcium 9.3 mg/dL (7.8-10.44); Carbon Dioxide 25 mmol/L (23-31); Chloride 108 mmol/L (98-107); Estimated GFR 87; Globulin 2.8 g/dL (2.4-3.5); Glucose 119 mg/dL (80-115); Potassium 4.2 mmol/L (3.5-5.1); Protein, Total 6.2 g/dL (5.8-8.1); Sodium 138 mmol/L (136-145)
[2024-05-22 07:26] LABS: Alkaline Phosphatase 63 U/L (40-110)
[2024-05-22] MEDS: Aspirin 81 mg Enteric Coated Tablet PO SCH (08:06)
[2024-05-22] MEDS: Ezetimibe 10 MG TAB PO SCH (08:06)
[2024-05-22] MEDS: Insulin Lispro 100 UNIT/ML 10 ML VIAL SC PRN (16:42)
[2024-05-22] MEDS: Finasteride 5 MG TAB PO SCH (21:00)
[2024-05-23 12:00] LABS: #Basophils 0.04 10x3/uL (0.0-0.2); %Basophils 0.4 % (0.0-1.0); %Eosinophils 1.4 % (0.0-10.0); %Lymphocytes 36.4 % (21.0-51.0); %Monocytes 6.7 % (0.0-10.0); %Neutrophils 54.5 % (42.0-75.0); Hematocrit 46.9 % (42.0-52.0); Hemoglobin 16.2 g/dL (14.0-18.0); Mean Corpuscular HGB CONC 34.5 g/dL (32.0-36.0); Mean Corpuscular Hemoglobin 30.5 pg (27.0-31.0); Mean Corpuscular Volume 88.2 fL (78.0-98.0); Mean Platelet Volume 10.4 fL (7.4-10.4); Platelet Count 150 10x3/uL (130-400); RBC Distribution Width 13.3 % (11.5-14.5); Red Blood Cell (RBC) Count 5.32 mill/uL (4.70-6.10)
[2024-05-23 12:11] LABS: Anion Gap 11 mmol/L (10-20); BUN (Urea Nitrogen) 14 mg/dL (8.4-25.7); Calc. Creatinine Clearance 109 mL/min (70-130); Calcium 9.3 mg/dL (7.8-10.44); Carbon Dioxide 23 mmol/L (23-31); Chloride 108 mmol/L (98-107); Estimated GFR 86; Glucose 123 mg/dL (80-115); Potassium 4.4 mmol/L (3.5-5.1); Sodium 138 mmol/L (136-145)
[2024-05-23] MEDS: Magnesium Citrate 300 ML BOT PO SCH (13:53)
[2024-05-23] MEDS: Lactulose 20 GM (30 mL) UDCUP PO SCH (21:52)
[2024-05-23] MEDS: Senokot S 8.6-50 MG TAB PO SCH (21:52)
[2024-05-24] MEDS: Cyclobenzaprine 10 MG TAB PO PRN (00:58)
[2024-05-24] MEDS: Acetaminophen 325 MG TAB PO PRN (00:58)
[2024-05-24 07:53] VITALS: BP 129/85; TEMP 97.2
== END 2024-05-24 13:52 | disposition home or self-care (01) | DRG 392 ==
LOC: ERS 15:11 → T4-A 21:42 → OBSVTOIN 05-21 10:26
PROVIDERS: ADMIT Internal Medicine; ATTEND Internal Medicine
DX: R10.31 Right lower quadrant pain (principal); I11.0 Hypertensive heart disease with heart failure; I50.22 Chronic systolic (congestive) heart failure; I25.10 Atherosclerotic heart disease of native coronary artery without angina pectoris; J44.9 Chronic obstructive pulmonary disease, unspecified; G47.33 Obstructive sleep apnea (adult) (pediatric); E11.9 Type 2 diabetes mellitus without complications; K42.9 Umbilical hernia without obstruction or gangrene; K59.00 Constipation, unspecified; Z79.84 Long term (current) use of oral hypoglycemic drugs; Z95.5 Presence of coronary angioplasty implant and graft; Z88.8 Allergy status to other drugs, medicaments and biological substances; Z79.82 Long term (current) use of aspirin; Z79.899 Other long term (current) drug therapy
CPT/HCPCS: 36415; 36416; 74177; 76705; 78226; 80048; 80053; 81001; 83690; 85025; 96372; 96374; 96376; A9537; G0378; J1650; J1885; J2543; Q0163; Q9967